=== PATIENT | female | born 1975 | race Caucasian/White ===

== ENCOUNTER → 2016-06-18 | Outpatient (CLI) | payer OTHER ==
[~2016-06-18] MED LIST: ADVIN25/60 INH; ALBUAER PO; ASPI81TA28 PO; OXYC1TAB3 PO; PENI-82 PO; PERFLUTREN LIPID MICROSPHERE (DEFINITY) IV ONE
--- NOTE | 2016-06-18 14:10 | DIAGNOSTIC IMAGING REPORT ---
ULTRASOUND OF THE CAROTID ARTERIES CLINICAL HISTORY: X VISUAL CHANGES. POSSIBLE TIA. COMPARISON STUDY: None. TECHNIQUE: Real-time, grayscale, and color Doppler sonography of the carotid arteries was performed. Imaging reviewed in the transverse and longitudinal planes. NASCET criteria was utilized for stenosis calcification. FINDINGS: There is minor atherosclerotic plaque present . The peak systolic velocity within the right internal carotid artery is 83 cm/sec. The systolic velocity ratio of right internal to common carotid artery is 0.7. The peak systolic velocity within the left internal carotid artery is 99 cm/sec. The systolic velocity ratio left internal to common carotid artery is 0.8. Antegrade flow is seen in the vertebral arteries. The external carotid arteries are patent. Blood pressure in the right arm measured 135 mm/Hg. Blood pressure in the left arm measured 137 mm/Hg. There is a mildly prominent right cervical lymph node maintaining its normal fatty hilum IMPRESSION: No evidence of hemodynamically significant carotid stenosis. Electronically signed by: Gordon Varela M.D. 06/18/2016 2:09 PM Dictated Date/Time: 06/18/2016 2:06 PM
--- NOTE | 2016-06-18 15:56 | ECHOCARDIOGRAM REPORT ---
*NOTICE TO RECEIVING CONSTITUTION PARTY AGENCY This information is strictly Confidential and protected under [place] law. [place] law prohibits you from making any further disclosure of this information unless further disclosure is expressly permitted by the written consent of the person to whom it pertains or is authorized by law. A general authorization for the release of medical or other information is not sufficient for this purpose. Hospital accepts no responsibility if the information is made available to any other person, INCLUDING THE PATIENT. Interpretation Summary * Name: APOLONIA FARFAN Study Date: 06/18/2016 01:08 PM BP: 140/78 mmHg * Patient Location: [facility] HR: 79 * : 1975 (M/d/yyyy) Gender: Female Height: 63 in * Age: 40 yrs Ethnicity: CA Weight: 225 lb * Ordering Physician: Maerk Garcia * Referring Physician: Marek Garcia * Performed By: Angela Tabares RDCS * * Reason For Study: BLURRED VISION * BSA: 2.0 m2 * History: BLURRED VISION * No significant valvular abnormalities. * This was essentially a normal study. * All chambers of normal size and function * Normal bi-ventricular function * No cardiac source of emboli noted. Procedure Details * A saline contrast injection was performed to assess for cardiac shunting. * The injection was performed through an intravenous line in the right arm. * The attending nurse who injected the saline contrast was GT FAULKNER RN. * A total of 20 cc of agitated saline was given. * A contrast injection of Definity was performed to improve assessment of LV function. * Contrast was injected into an intravenous site in the right arm. * One vial of Definity ultrasound contrast was diluted in normal saline to a total volume of 10 ml. A total of '2' ml of solution was administered during imaging. * Lot # [id number] of Definity utilized for procedure. * Expiration date JUN 02. * The attending nurse who injected the contrast agent was GT FAULKNER RN. Left Ventricle * The left ventricle is normal in size. * There is no thrombus. * There is normal left ventricular wall thickness. * Ejection Fraction = 55-60%. * Left ventricular systolic function is normal. * The left ventricular wall motion is normal. Right Ventricle * The right ventricle is normal in size and function. Atria * The left atrial size is normal. * Right atrial size is normal. * Injection of contrast documented no interatrial shunt. Mitral Valve * The mitral valve is normal. * There is no mitral valve stenosis. * There is no mitral regurgitation noted. Tricuspid Valve * The tricuspid valve is not well visualized, but is grossly normal. * There is no tricuspid stenosis. * No tricuspid regurgitation. Aortic Valve * The aortic valve is trileaflet. * The aortic valve opens well. * Aortic stenosis is absent. * No aortic regurgitation is present. Pulmonic Valve * The pulmonic valve is not well visualized. * There is no pulmonic valvular stenosis. * There is no pulmonic valvular regurgitation. Pericardium/Pleural * There is no pericardial effusion. MMode 2D Measurements and Calculations IVSd 1.1 cm IVSs 1.3 cm LVIDd 4.1 cm LVIDs 3.0 cm LVPWd 1.1 cm LVPWs 1.4 cm IVS/LVPW 0.98 FS 26.6 % EDV(Teich) 74.7 ml ESV(Teich) 35.5 ml EF(Teich) 52.4 % EDV(cubed) 69.5 ml ESV(cubed) 27.5 ml EF(cubed) 60.4 % % IVS thick 17.1 % % LVPW thick 22.0 % LV mass(C)d 153.9 grams LV mass(C)dI 75.7 grams/m\S\2 LV mass(C)s 129.6 grams LV mass(C)sI 63.7 grams/m\S\2 SV(Teich) 39.1 ml SI(Teich) 19.3 ml/m\S\2 SV(cubed) 42.0 ml SI(cubed) 20.6 ml/m\S\2 LA dimension 2.8 cm LVAd ap4 26.0 cm\S\2 LVLd ap4 7.9 cm EDV(MOD-sp4) 71.7 ml EDV(sp4-el) 72.4 ml LVAs ap4 16.4 cm\S\2 LVLs ap4 6.4 cm ESV(MOD-sp4) 37.5 ml ESV(sp4-el) 36.1 ml EF(MOD-sp4) 47.8 % EF(sp4-el) 50.2 % LVAd ap2 29.8 cm\S\2 LVLd ap2 8.6 cm EDV(MOD-sp2) 85.3 ml EDV(sp2-el) 87.7 ml LVAs ap2 17.6 cm\S\2 LVLs ap2 7.0 cm ESV(MOD-sp2) 36.4 ml ESV(sp2-el) 37.7 ml EF(MOD-sp2) 57.3 % EF(sp2-el) 57.0 % LVLd %diff 7.6 % EDV(MOD-bp) 81.7 ml LVLs %diff 9.1 % ESV(MOD-bp) 38.2 ml EF(MOD-bp) 53.2 % SV(MOD-sp4) 34.3 ml SI(MOD-sp4) 16.8 ml/m\S\2 SV(MOD-sp2) 48.9 ml SI(MOD-sp2) 24.1 ml/m\S\2 SV(MOD-bp) 43.5 ml SI(MOD-bp) 21.4 ml/m\S\2 SV(sp4-el) 36.3 ml SI(sp4-el) 17.9 ml/m\S\2 SV(sp2-el) 50.0 ml SI(sp2-el) 24.6 ml/m\S\2 Doppler Measurements and Calculations MV E max carolann 73.2 cm/sec MV A max carolann 48.5 cm/sec MV E/A 1.5 MV dec time 0.21 sec Ao V2 max 121.2 cm/sec Ao max PG 5.9 mmHg Ao max PG (full) 3.3 mmHg LV V1 max PG 2.6 mmHg LV V1 max 81.0 cm/sec
== END | disposition home or self-care (01) ==
LOC: C.ULTR 12:06
DX: H53.123 Transient visual loss, bilateral (principal)

== ENCOUNTER → 2016-06-23 | Outpatient (CLI) | payer OTHER ==
[~2016-06-23] MED LIST changes: -PERFLUTREN LIPID MICROSPHERE (DEFINITY) IV ONE
[2016-06-23 17:39] LABS: HEMATOCRIT 44.7 % (37-47); MEAN CELL VOLUME 88.9 fL (80-100); MEAN CORPUSCULAR HEMOGLOBIN 29.6 pg (25-34); MEAN CORPUSCULAR HGB CONC 33.3 g/dl (32-36); MEAN PLATELET VOLUME 10.6 fL (7.4-10.4); PLATELET COUNT 261 K/uL (130-400); RED BLOOD COUNT 5.03 M/uL (4.2-5.4); WHITE BLOOD COUNT 8.24 K/uL (4.8-10.8)
[2016-06-23 18:06] LABS: ALT/SGPT 31 U/L (12-78); AST/SGOT 14 U/L (15-37); BLOOD UREA NITROGEN 14 mg/dl (7-18); BUN/CREATININE RATIO 15.6 (10-20); CALCIUM 8.7 mg/dl (8.5-10.1); CARBON DIOXIDE 26 mmol/L (21-32); CHLORIDE 106 mmol/L (98-107); CHOLESTEROL 178 mg/dl (0-200); CREATININE 0.89 mg/dl (0.60-1.20); GLUCOSE 95 mg/dl (70-99); POTASSIUM 4.3 mmol/L (3.5-5.1); SODIUM 140 mmol/L (136-145)
[2016-06-23 18:09] LABS: ALKALINE PHOSPHATASE 74 U/L (45-117); CHOLESTEROL/HDL RATIO 6.1; HDL CHOLESTEROL 29 mg/dl; LDL CHOLESTEROL CALCULATED 79 mg/dl; TRIGLYCERIDES 351 mg/dl (0-150); VERY LOW DENSITY LIPOPROT CALC 70 mg/dl
== END | disposition home or self-care (01) ==
LOC: C.LABPVFM 11:51
DX: H53.123 Transient visual loss, bilateral (principal)

== ENCOUNTER 2016-06-24 13:48 | Emergency (ER) | payer OTHER ==
[~2016-06-24] VITALS: Ht 160 cm; Wt 102.6 kg
[2016-06-24 13:50] VITALS: TEMP 37; Ht 160 cm; Wt 102.6 kg
[2016-06-24] MEDS ORDERED: ADVIN25/60 INH (14:00)
[2016-06-24] MEDS ORDERED: ALBUAER PO (14:00)
[2016-06-24] MEDS ORDERED: PENI-82 PO (14:00)
[2016-06-24] MEDS ORDERED: ASPI81TA28 PO (14:03)
[2016-06-24] MEDS ORDERED: OXYCODONE HCL IR 5 MG TAB (IMMEDIATE RELEASE) PO STA (14:08)
[2016-06-24] MEDS ORDERED: KETOROLAC TROMETHAMINE 60 MG/2 ML VIAL IM STA (14:08)
--- NOTE | 2016-06-24 15:14 | EMERGENCY ROOM VISIT NOTE ---
ED Visit Note First contact with patient: 14:02 CHIEF COMPLAINT: Right upper toothache HISTORY OF PRESENT ILLNESS: This 40-year-old female presents the ER with chief complaint of right upper tooth pain that started last night. The patient states she was on antibiotics for an infection of the same tooth one month ago. She was given antibiotics by her dentist for which she hasn't appointment on Tuesday to have the tooth extracted. She also has been taking Tylenol with Codeine without any relief of the pain. She took one tablet today at noon. She has not taken anything else for pain. The patient states she has enough penicillin to get her through until she sees her dentist. REVIEW OF SYSTEMS: 6 system review was performed and was negative unless stated otherwise in history of present illness. PMH: The patient is healthy; asthma SOCIAL HISTORY: Patient lives with her family. The patient admits to tobacco use but denies any alcohol use. PHYSICAL EXAM: Vital Signs: Were reviewed Reviewed Nurse's notes. GENERAL: 40- year-old white female appears uncomfortable secondary to tooth pain. MENTAL Status: Alert and oriented 3. MOUTH: Right upper molar with tenderness to percussion. Some decay is noted. Gingiva without erythema or edema. FACE: No erythema or edema noted. NECK: Supple, no lymphadenopathy noted. LUNGS: Clear to auscultation without wheezes rales or rhonchi. CARDIAC: Regular rate and rhythm without murmur. EMERGENCY COURSE: The patient was evaluated. The patient was given Toradol 60 mg IM and OxyIR 10 mg by mouth. The patient was reevaluated was feeling better. The patient was discharged home in stable condition. DIAGNOSIS: Dentalgia DISCHARGE INSTRUCTIONS & TREATMENT: Continue penicillin as directed. Ibuprofen 600 mg every 6 hours with food for pain. Take OxyIR as directed for additional pain relief. Do not drive while taking the OxyIR. Keep scheduled appointment with her dentist on Tuesday for definitive care. Problem List Medical Problems: (1) Abscess of skin AND/OR subcutaneous tissue Status: Chronic (2) Asthma Status: Chronic (3) Migraine Status: Chronic Current/Historical Medications Scheduled Albuterol Sulfate (Proventil Hfa), 1 INHA PO DAILY Aspirin (Aspirin Ec), 81 MG PO DAILY Fluticasone Prop/Salmeterol (Advair Diskus 250/50 60 Dose), 1 PUFF INH BID Penicillin V Potassium (Veetids), 500 MG PO BID Allergies Coded Allergies: Cat Dander (Verified Allergy, Unknown, ., 07/31/15) [place] (Verified Allergy, Unknown, ., 07/31/15) Vital Signs Date Time Temp Pulse Resp B/P Pulse Ox O2 Delivery O2 Flow Rate FiO2 06/24/16 13:50 37.0 89 20 197/97 97 Room Air Medications Administered Medications (Trade) Dose Ordered Sig/Hanna Route Start Time Stop Time Status Last Admin Dose Admin Ketorolac Tromethamine (Toradol Inj) 60 mg NOW STAT IM 06/24/16 14:08 06/24/16 14:10 DC 06/24/16 14:15 60 MG Oxycodone HCl (Roxicodone Immediate Rel Tab) 10 mg NOW STAT PO 06/24/16 14:08 06/24/16 14:10 DC 06/24/16 14:14 10 MG Departure Information Referrals No Doctor, Assigned (PCP) Patient Instructions [facility]
[2016-06-24] MEDS ORDERED: OXYC1TAB3 PO (15:16)
[2016-06-24 15:22] VITALS: BP 135/91; PULSE 82; O2SAT 95
== END 2016-06-24 15:23 | disposition home or self-care (01) ==
LOC: C.EDB 13:49 → C.EDD 15:23
DX: K08.89 Other specified disorders of teeth and supporting structures (principal); J45.909 Unspecified asthma, uncomplicated; F17.200 Nicotine dependence, unspecified, uncomplicated; Z79.82 Long term (current) use of aspirin; Z79.899 Other long term (current) drug therapy; Z91.018 Allergy to other foods; Z91.09 Other allergy status, other than to drugs and biological substances

== ENCOUNTER → 2016-08-04 | Outpatient (CLI) | payer OTHER ==
[~2016-08-04] MED LIST changes: +OPTIRAY 320 IV PRN
--- NOTE | 2016-08-04 13:39 | DIAGNOSTIC IMAGING REPORT ---
CT SCAN OF THE BRAIN COMBO CLINICAL HISTORY: Amaurosis fugax. COMPARISON STUDY: CT of the brain dated 01/03/2010. TECHNIQUE: Axial CT scan of the brain is performed from the vertex to the skull base before and following the IV administration of 119 cc of Optiray 320. IV contrast was administered without complication. Automated dose control exposure was utilized. CT DOSE: 1074.96 mGy.cm FINDINGS: Brain parenchyma: The brain parenchyma is normal in appearance. There is no hemorrhage, mass effect, or evidence of acute territorial ischemia by CT criteria. No enhancing lesion is identified on the postcontrast images. Borges-white matter is preserved. No extra-axial fluid collection is seen. Ventricles, sulci, cisterns: Normal in configuration. Intracranial vasculature: The visualized intracranial vasculature at the skull base is normal in appearance. Calvarium: Unremarkable. Sinuses and mastoids: The visualized paranasal sinuses are clear. The mastoid air cells are well pneumatized. Orbits: The bony orbits are grossly intact. IMPRESSION: No acute intracranial abnormality. Electronically signed by: Gustavo Solorio M.D. 08/04/2016 1:38 PM Dictated Date/Time: 08/04/2016 1:34 PM
== END | disposition home or self-care (01) ==
LOC: C.CTS 12:52
DX: H53.129 Transient visual loss, unspecified eye (principal)

== ENCOUNTER → 2016-12-06 | Outpatient (CLI) | payer OTHER ==
[~2016-12-06] MED LIST changes: -OPTIRAY 320 IV PRN
--- NOTE | 2016-12-06 15:25 | DIAGNOSTIC IMAGING REPORT ---
LEFT SHOULDER MIN 2 VIEWS ROUTINE CLINICAL HISTORY: Left shoulder pain. COMPARISON: None FINDINGS: Alignment of the left shoulder is anatomic. There is no acute fracture. No suspicious osseous lesion is present. There is mild osteophytosis of the acromioclavicular joint. There is slight spurring of the greater tuberosity. IMPRESSION: 1. No acute fracture. 2. Mild osteoarthritis of the left acromioclavicular joint. Electronically signed by: Dylan Reyna M.D. 12/06/2016 3:24 PM Dictated Date/Time: 12/06/2016 3:23 PM
== END | disposition home or self-care (01) ==
LOC: C.RADPV 15:02
DX: M25.519 Pain in unspecified shoulder (principal)

== ENCOUNTER → 2017-12-13 | Outpatient (CLI) | payer OTHER ==
[~2017-12-13] MED LIST changes: -OXYC1TAB3 PO
--- NOTE | 2017-12-13 13:26 | DIAGNOSTIC IMAGING REPORT ---
THORACIC SPINE 3 VIEWS ROUTINE HISTORY: Pain LOW BACK PAIN COMPARISON: None. FINDINGS: There is no fracture. No subluxation. Moderate degenerative disc change. IMPRESSION: Moderate degenerative disc change. No acute process. The above report was generated using voice recognition software. It may contain grammatical, syntax or spelling errors. Electronically signed by: Shreyas Galeana M.D. 12/13/2017 1:25 PM Dictated Date/Time: 12/13/2017 1:24 PM
--- NOTE | 2017-12-13 13:53 | DIAGNOSTIC IMAGING REPORT ---
LUMBAR SPINE 5 VIEWS CLINICAL HISTORY: Low back pain. FINDINGS: 5 views of the lumbar spine are compared to study dated 09/02/2015. The skeletal structures are well mineralized. There is no radiographic evidence of fracture or malalignment. Vertebral body height and alignment are maintained. The transverse and spinous processes are intact. There is no evidence of spondylolysis. Small anterior osteophytes are seen throughout. Mild facet arthropathy is noted in the lower lumbar region. Mild disc space narrowing is seen at L1-L2 and L2 4 L5. The remaining intervertebral disc spaces are preserved. The visualized bony pelvis appears intact. There is a nonobstructed abdominal bowel gas pattern. IMPRESSION: No acute osseous abnormality is seen involving the lumbosacral spine. Electronically signed by: Gustavo Solorio M.D. 12/13/2017 1:52 PM Dictated Date/Time: 12/13/2017 1:51 PM
== END | disposition home or self-care (01) ==
LOC: C.RADPV 13:01
PROVIDERS: ATTEND Nurse Practitioner
DX: M51.36 Other intervertebral disc degeneration, lumbar region (principal)

== ENCOUNTER 2019-06-09 15:44 | Observation (INO) ==
--- OUTSIDE RECORDS SUMMARY | 2019-06-09 15:46 | External Medical Summary | Continuity of Care Document ---
:1975 Author Name Geena Zamora, Provider Address Unavailable Unavailable , Care Team Providers Name Role Phone Danyelle Mota Unavailable [email or web address] Ethan Zamora, Pito Villasenor Unavailable [email or web address] Mae Zamora Unavailable [email or web address] Blaine BUNCH Unavailable Unavailable [facility] Unavailable Unavailable Unavailable Unavailable Unavailable Problems Pharyngitis (462) (J02.9) Obesity (278.00) (E66.9) Back pain with radiation (724.5) (M54.9) Fatty liver (571.8) (K76.0) Hypertension (401.9) (I10) Hyperlipidemia (272.4) (E78.5) Contact dermatitis (692.9) (L25.9) Seborrheic dermatitis of scalp (690.18) (L21.9) Depression (311) (F32.9) Dental disorder (525.9) (K08.9) Asthmatic bronchitis (493.90) (J45.909) Furunculosis (680.9) (L02.92) Encounter for immunization (V03.89) (Z23) Back pain (724.5) (M54.9) Current smoker (305.1) (F17.200) Abscess (682.9) (L02.91) Asthma (493.90) (J45.909) Allergic rhinitis (477.9) (J30.9) Allergies and Adverse Reactions No Known Drug Allergies (Allergy) Medications Aldactone 25 MG Oral Tablet; TAKE 1 TABLET DAILY Refills: 0 Proventil HFA 108 (90 Base) MCG/ACT Inha lation Aerosol Solution; INHALE 1 TO 2 PUFFS EVERY 4 TO 6 HOURS NEEDED. GOVIND Fiore Quantity: 8.5 Refills: 2 Nebulizer/Tubing/Mouthpiece KIT; USE DIRECTED. Mouthpiece to match brand of nebulizer patient owns. Sera Wall Start: 21-Jan-2017 Quantity: 1 Refills: 0 Montelukast Sodium 10 MG Oral Tablet; TAKE 1 TABLET EV KAMRAN PARRA Sera Long Start: 08-Sep-2017 Quantity: 30 Refills: 11 Procedures History of Oral Surgery Status: Complete d Immunizations Influenza On: 13-Feb-2015 Fluzone Quadrivalent Intramuscular Suspension On: 6 16:14 Lot #: [id number], SANOFI PASTEUR Family History Mother Family history of malignant neoplasm (V16.9) (Z80.9) Status: Active Family history of lung disease (V19.8) (Z83.6) Status: Activ e Family history of malignant neoplasm of breast (V16.3) (Z80. 3) Status: Active aunt Family history of malignant neoplasm (V16.9) (Z80.9) Status: Active Family history of malignant neoplasm of breast (V16.3) (Z80. 3) Status: Active cousin Family history of malignant neoplasm (V16.9) (Z80.9) Status: Active Family history of malignant neoplasm of breast (V16.3) (Z80. 3) Status: Active Father Family history of diabetes mellitus (V18.0) (Z83.3) Status: Active Family history of hypertension (V17.49) (Z82.49) Status: Act allison Social History - Smoking Status Smoker. current status unknown Plan of Treatment Planned Observations Planned Goals not documented Results No Known Results Results not documented Encounters Appointment; Pulmonary, Funct Testing 08-Sep-2017 11:45 Encounter Diagnosis: Problem not documented Appointment; Pito Long M.D. 08-Sep-2017 11:00 Encounter Diagnosis: Problem not documented Appointment; Pito Long M.D. 09-Nov-2017 13:00 Encounter Diagnosis: Problem not documented
--- OUTSIDE RECORDS SUMMARY | 2019-06-09 15:46 | External Medical Summary | Continuity of Care Document ---
:1975 Author Name Geena Zamora, Provider Address Unavailable Unavailable , Care Team Providers Name Role Phone Danyelle Mota Unavailable [email or web address] Ethan Zamora, Pito Villasenor Unavailable [email or web address] Mae Zamora Unavailable [email or web address] Blaine BUNCH Unavailable Unavailable [facility] Unavailable Unavailable Unavailable Unavailable Unavailable Problems Depression (311) (F32.9) Seborrheic dermatitis of scalp (690.18) (L21.9) Contact dermatitis (692.9) (L25.9) Hyperlipidemia (272.4) (E78.5) Hypertension (401.9) (I10) Fatty liver (571.8) (K76.0) Back pain with radiation (724.5) (M54.9) Obesity (278.00) (E66.9) Pharyngitis (462) (J02.9) Abscess (682.9) (L02.91) Current smoker (305.1) (F17.200) Back pain (724.5) (M54.9) Encounter for immunization (V03.89) (Z23) Furunculosis (680.9) (L02.92) Asthmatic bronchitis (493.90) (J45.909) Allergic rhinitis (477.9) (J30.9) Asthma (493.90) (J45.909) Dental disorder (525.9) (K08.9) Allergies and Adverse Reactions No Known Drug Allergies (Allergy) Medications Proventil HFA 108 (90 Base) MCG/ACT Inha lation Aerosol Solution; INHALE 1 TO 2 PUFFS EVERY 4 TO 6 HOURS NEEDED. GOVIND Fiore Quantity: 8.5 Refills: 2 Nebulizer/Tubing/Mouthpiece KIT; USE DIRECTED. Mouthpiece to match brand of nebulizer patient owns. Sera Wall Start: 21-Jan-2017 Quantity: 1 Refills: 0 Aldactone 25 MG Oral Tablet; TAKE 1 TABLET DAILY Refills: 0 Montelukast Sodium 10 MG Oral Tablet; TAKE 1 TABLET EV KAMRAN Sera Mittal Start: 08-Sep-2017 Quantity: 30 Refills: 11 Procedures History of Oral Surgery Status: Complete d Immunizations Influenza On: 13-Feb-2015 Fluzone Quadrivalent Intramuscular Suspension On: 6 16:14 Lot #: [id number], SANOFI PASTEUR Family History Mother Family history [...]
[2019-06-09] MEDS ORDERED: VANCOMYCIN CONSULT ACTIVE PRN ×2 (16:09→21:02)
[2019-06-09] MEDS ORDERED: cefTRIAXone SODIUM 2,000 MG/70 ML BAG IV STA (16:09)
[2019-06-09] MEDS ORDERED: SODIUM CHLORIDE 0.9% 1000ML 1,000 ML IV ONE (16:09)
[2019-06-09] MEDS ORDERED: MoRPHine SULFATE 4 MG/ML 1 ML CARP\\VIAL IV STA (16:09)
[2019-06-09] MEDS ORDERED: VANCOMYCIN HCL 2,750 MG in SODIUM CHLORIDE 0.9% 500 ML IV ONE (16:09)
[2019-06-09] MEDS ORDERED: ONDANSETRON INJ 2 MG/ML 2 ML VIAL IV STA (16:09)
--- NOTE | 2019-06-09 16:26 | Emergency Department Note ---
History of Present Illness General Chief complaint: Breast Pain/Problems Stated complaint: ABCESS ON RIGHT BOOB,WEAK,FEVER Source: patient Mode of arrival: ambulatory Limitations: no limitations History of Present Illness Provider Complaint: + abscess/boil and + discoloration Onset (ago): 3 day(s) Tetanus up to date: yes Location: + chest (right breast) Severity: severe Maximum Pain Intensity: 7 Current Pain Intensity: 7 Quality: + aching and + sharp Pain Consistency: + constant Relieved By: + immobilization Exacerbated By: + palpation and + movement Context: + other (hx. breast abscesses) Associated symptoms: + fever, + chills, + rigors, + nausea, + malaise and + myalgias Treatments prior to arrival: + antibiotic (2 doses Levaquin) HPI narrative: This 43-year-old female patient presents the emergency department today, ambulatory, accompanied by male. The patient is complaining of right breast abscess and pain which began 3 days ago. The patient saw her PCP on Tuesday for these symptoms and was started on Levaquin. She states she took 2 doses of the Levaquin and continues to notice worsening symptoms. She was supposed to have a mammogram performed but has not scheduled this yet. The patient does have a history of breast abscesses, but states most of the time they improve on their own or with antibiotics. She did have a biopsy at one time, but indicates she has not had I&D's or formal surgery. The patient has had multiple abscesses in this right breast as well as 2-3 in the left. She denies any trauma. She denies any discharge. She does report subjective fevers, weakness, nausea, body aches, chills, and lethargy. She has been taking 800 mg ibuprofen without relief of her symptoms. Patient is not diabetic. Tetanus vaccination is up-to-date. Home Medications Home Medications Medication Instructions Recorded Confirmed Type albuterol sulfate 2.5 mg INHALATION DAILY PRN 06/09/19 06/09/19 History albuterol sulfate [Ventolin HFA] 1 - 2 puff INHALATION DAILY PRN 06/09/19 06/09/19 History cetirizine [Zyrtec] 10 mg PO QAM 06/09/19 06/09/19 History ibuprofen 800 mg PO TID PRN 06/09/19 06/09/19 History levofloxacin [Levaquin] 750 mg PO DAILY 06/09/19 06/09/19 History montelukast [Singulair] 10 mg PO QPM 06/09/19 06/09/19 History tolnaftate [Antifungal 1 applic TOPICAL DAILY 06/09/19 06/09/19 History (tolnaftate)] Allergies Allergy/AdvReac Type Severity Reaction Status Date / Time cat dander Allergy Unknown . Verified 06/09/19 17:30 orange Allergy Unknown . 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 Required: No Beliefs That Will Affect Care: None Current Living Situation: Spouse and Family Other Information That Helps Us Care for You: No Feels Safe at Home: Yes Safety Concerns: Feels Safe At This Time Smoking Status: Heavy tobacco smoker Tobacco Type: cigarettes ; Do You Dip or Chew Tobacco: No ; Hx Substance Use: No Review of Systems A total of 10 systems reviewed and were otherwise negative Physical Exam Vital Signs: Vital Signs - 24 hr 06/09/19 15:46 06/09/19 18:19 06/09/19 20:17 Temperature 37.0 C Temperature Source Oral Pulse Rate 103 H Pulse Rate [Apical ] 85 80 Respiratory Rate 18 18 18 Respiratory Effort / Characteristics Non-Labored Non-Labored Respiratory Depth Normal Normal Respiratory Patter n Regular Regular Blood Pressure 154/81 H Blood Pressure [Ri ght Arm] 100/59 L 96/53 L Blood Pressure Mary n 105 Blood Pressure Mary n [Right Arm] 72 67 Blood Pressure Pos ition Sitting Pulse Oximetry 98 96 96 Oxygen Delivery Me thod Room Air Room Air Room Air Sepsis Recent Feve r Within 48 Hours No Sepsis New/Unexpla ined Change in Men norman Status No Sepsis Action Take n by Nursing No Action Required Physical Exam: VITALS: Vitals are noted on the nurse's note and reviewed by myself. Vital signs stable. GENERAL: This is a 43-year-old obese white female, in no acute distress, nondiaphoretic, well-developed well-nourished. SKIN: Erythema, warmth, and induration extending from the medial aspect of the right breast behind the areola and nipple and toward the lateral aspect of the breast. This induration measures approximately 8 cm in diameter. The skin was without rashes, erythema, edema, or bruising. There is no tenting of the skin. Capillary refill less than 2 seconds. HEAD: Normocephalic atraumatic. NECK: Supple without nuchal rigidity. No lymphadenopathy. HEART: Regular rate and rhythm without murmurs gallops or rubs. LUNGS: Clear to auscultation bilaterally without wheezes, rales or rhonchi. No dullness to percussion. No retractions or accessory muscle use. ABDOMEN: Positive bowel sounds x 4. Normal tympanic percussion. Soft, nontender, without masses or organomegaly. Gomez sign negative. No guarding or rebound tenderness. MUSCULOSKELETAL: No muscle atrophy, erythema, or edema noted. Full range of motion without joint tenderness in all extremities. No tenderness to palpation. NEURO: Patient was alert and oriented to person place and time. No focal neurological deficits. Course Course The patient was seen and evaluated as above. IV access obtained, labs drawn. I discussed the case with the ED pharmacist. We did agree on antibiotic management. Patient medicated with IV fluids, morphine, Zofran, vancomycin, ceftriaxone. Imaging performed and reviewed by myself and radiologist as above. Labs reviewed by myself. I discussed the findings with the patient at bedside. I discussed the case with my attending. I discussed the case with Dr. Goddard, general surgeon on-call. He recommends aspiration by a breast radiologist as the standard of care at this time. He indicates that it will likely be difficult or impossible to make this happen over the weekend, but does not recommend I&D at this time. He discussed admission to medicine for antibiotic management versus discharge home on a trial of p.o. antibiotics with aspiration completed on Tuesday. Attempts made to contact Dr. Wade or Dr. Crowder, breast radiologists, however there is no call on weekends for these providers. We did attempt to contact the breast center in order to obtain a on-call number, but were unsuccessful. I discussed the case with Dr. England, [facility]. He did agree to see and evaluate the patient for admission. Please see his dictation regarding ongoing management care of this patient. Administered Medications Discontinued Medications Sodium Chloride (Nss 1000ml) 1,000 mls @ 999 mls/hr IV .[id number] ONE Stop: 06/09/19 17:09 Last Infusion: 06/09/19 18:46 Dose: 0 mls/hr Documented by: [id number] Admin: 06/09/19 16:39 Dose: 999 mls/hr Documented by: [id number] Vancomycin HCl 2,750 mg/ (Sodium Chloride) 555 mls @ 200 mls/hr IV NOW ONE Stop: 06/09/19 18:55 Last Infusion: 06/09/19 21:03 Dose: 0 mls/hr Documented by: [id number] Admin: 06/09/19 18:02 Dose: 200 mls/hr Documented by: [id number] Ceftriaxone Sodium (Rocephin) 2,000 mg in 70 mls @ 140 mls/hr IV NOW STA Stop: 06/09/19 16:38 Last Infusion: 06/09/19 18:47 Dose: 0 mls/hr Documented by: [id number] Admin: 06/09/19 17:17 Dose: 140 mls/hr Documented by: [id number] Morphine Sulfate (Morphine Sulfate) 4 mg IV NOW STA Stop: 06/09/19 16:10 Last Admin: 06/09/19 16:39 Dose: 4 mg Documented by: [id number] Nicotine (Nicoderm Cq) 21 mg TD NOW STA Stop: 06/09/19 19:26 Last Admin: 06/09/19 20:15 Dose: 21 mg Documented by: [id number] Ondansetron HCl (Zofran) 4 mg IV NOW STA Stop: 06/09/19 16:10 Last Admin: 06/09/19 16:39 Dose: 4 mg Documented by: [id number] Medical Decision Making Differential Diagnosis + abscess of skin or subcutaneous tissue, + viral exanthem, + dermatophytosis, + urticaria, + herpes zoster, + allergic reaction to drug, + cellulitis, + eczema, + insect bites, + impetigo, + contact dermatitis, + cellulitis, + necrotizing fasciitis, + foreign body, + dermatitis and + drug eruption Home Medications Current Medication List: was personally reviewed by me Laboratory Data Attestation: I reviewed the patient's lab results. Leukocytosis of 12.9. No anemia or thrombocytopenia. Coags normal. Renal, hepatic function and electrolytes without significant abnormality. Lactate 0.7. Result diagrams: 06/09/19 16:31 06/09/19 16:31 Lab Results 06/09/19 06/09/19 06/09/19 Range/Units 16:31 16:31 16:31 WBC 12.90 H (4.8-10.8) K/uL RBC 4.66 (4.2-5.4) M/uL Hgb 14.1 (12.0-16.0) g/dL Hct 41.5 (37-47) % MCV 89.1 (80-100) fL MCH 30.3 (25-34) pg MCHC 34.0 (32-36) g/dL RDW Std Deviation 43.7 (36.4-46.3) fL RDW Coeff of Gina 13.4 (11.5-14.5) % Plt Count 249 (130-400) K/uL MPV 9.9 (7.4-10.4) fL Immature Gran % (Auto) 0.2 % Neut % (Auto) 75.0 % Lymph % (Auto) 13.4 % [place] % (Auto) 8.8 % Eos % (Auto) 2.3 % Baso % (Auto) 0.3 % Immature Gran # (Auto) 0.02 (0.00-0.02) K/uL Neut # (Auto) 9.68 H (1.4-6.5) K/uL Lymph # (Auto) 1.73 (1.2-3.4) K/uL Mingo # (Auto) 1.13 H (0.11-0.59) K/uL Eos # (Auto) 0.30 (0-0.5) K/uL Baso # (Auto) 0.04 (0-0.2) K/uL PT 11.2 (9.0-12.0) Seconds INR 1.1 (0.9-1.1) APTT 28.2 (21.0-31.0) Seconds PTT Ratio 1.0 Sodium 137 (136-145) mmol/L Potassium 4.0 (3.5-5.1) mmol/L Chloride 106 (98-107) mmol/L Carbon Dioxide 27 (21-32) mmol/L Anion Gap 4.0 (3-11) BUN 6 L (7-18) mg/dl Creatinine 0.97 (0.6-1.2) mg/dl Est Cr Clr Drug Dosing 86.9 ml/min Est GFR ( Amer) 82.3 Est GFR (Non-Af Amer) 71.0 BUN/Creatinine Ratio 6.5 L (10-20) Glucose 89 (70-99) mg/dl Lactate (0.4-2.0) mmol/L Calcium 8.6 (8.5-10.1) mg/dl Total Bilirubin 0.4 (0.2-1) mg/dl AST 8 L (15-37) U/L ALT 20 (12-78) U/L Alkaline Phosphatase 80 (45-117) U/L Total Protein 7.1 (6.4-8.2) gm/dl Albumin 3.1 L (3.4-5.0) gm/dl Globulin 4.0 (2.5-4.0) gm/dl Albumin/Globulin Ratio 0.8 L (0.9-2) 01/25/20 Range/Units 16:31 WBC (4.8-10.8) K/uL RBC (4.2-5.4) M/uL Hgb (12.0-16.0) g/dL Hct (37-47) % MCV (80-100) fL MCH (25-34) pg MCHC (32-36) g/dL RDW Std Deviation (36.4-46.3) fL RDW Coeff of Gina (11.5-14.5) % Plt Count (130-400) K/uL MPV (7.4-10.4) fL Immature Gran % (Auto) % Neut % (Auto) % Lymph % (Auto) % Mingo % (Auto) % Eos % (Auto) % Baso % (Auto) % Immature Gran # (Auto) (0.00-0.02) K/uL Neut # (Auto) (1.4-6.5) K/uL Lymph # (Auto) (1.2-3.4) K/uL Mingo # (Auto) (0.11-0.59) K/uL Eos # (Auto) (0-0.5) K/uL Baso # (Auto) (0-0.2) K/uL PT (9.0-12.0) Seconds INR (0.9-1.1) APTT (21.0-31.0) Seconds PTT Ratio Sodium (136-145) mmol/L Potassium (3.5-5.1) mmol/L Chloride (98-107) mmol/L Carbon Dioxide (21-32) mmol/L Anion Gap (3-11) BUN (7-18) mg/dl Creatinine (0.6-1.2) mg/dl Est Cr Clr Drug Dosing ml/min Est GFR ( Amer) Est GFR (Non-Af Amer) BUN/Creatinine Ratio (10-20) Glucose (70-99) mg/dl Lactate 0.7 (0.4-2.0) mmol/L Calcium (8.5-10.1) mg/dl Total Bilirubin (0.2-1) mg/dl AST (15-37) U/L ALT (12-78) U/L Alkaline Phosphatase (45-117) U/L Total Protein (6.4-8.2) gm/dl Albumin (3.4-5.0) gm/dl Globulin (2.5-4.0) gm/dl Albumin/Globulin Ratio (0.9-2) Imaging Data Radiologist's Impression: ULTRASOUND RIGHT BREAST LIMITED CLINICAL HISTORY: Right breast erythema and induration. Pain. Clinical concern for abscess. COMPARISON STUDY: Ultrasound of the right breast dated 04/11/2019. FINDINGS: Real-time, grayscale, and color flow sonography of the right breast is performed. There is a complex collection identified at the site of interest in the 3:00 position which measures 5.4 x 4.7 x 3.6 cm. No internal flow is identified. There is peripheral hyperemia on color imaging. IMPRESSION: 1. There is a complex fluid collection in the right breast as above typical in appearance for abscess. 2. Note that this does not constitute a cancer screening examination. Electronically signed by: Gustavo Solorio M.D. 06/09/2019 6:13 PM Blood Pressure Blood Pressure Findings: Normal blood pressure Blood Pressure Disposition: elevated BP felt to be situational MDM Narrative This 43-year-old female patient presents emergency department today for evaluation of right breast abscess. The patient indicates she does have a history of breast abscesses and has had them biopsied and drained, but has responded well to antibiotics in the past. She reports subjective fevers, chills, body aches, and systemic symptoms in addition to acute worsening of the redness and pain. Work-up here in the ED does show a leukocytosis of 13,000. There is an obvious abscess in the right breast on ultrasound. I discussed the case with the general surgeon/breast surgeon on-call, Dr. Goddard, who r ecommends ultrasound-guided aspiration is the standard of care for this abscess. The patient was recently on oral antibiotics and worsened despite these antibiotics. She is now complaining of systemic symptoms, and I do feel that inpatient management is most appropriate for IV antibiotics and consult with the breast radiologist for aspiration. The patient was agreeable. She was medicated in the ED with ceftriaxone and vancomycin after consultation with the ED pharmacist. The patient will be admitted to the [facility] service. The chart was completed utilizing [employer] Speech voice recognition software. Grammatical errors, random word insertions, pronoun errors, and incomplete sentences are an occasional consequence of this system due to software limitations, ambient noise, and hardware issues. Any formal questions or concerns about the content, text, or information contained within the body of this dictation should be directly addressed to the provider for clarification. Impression & Plan Abscess of skin AND/OR subcutaneous tissue, Breast abscess of female Discharge Plan Visit Data *Final* Discharge Date/Time: 06/09/19 20:49 Chief Complaint: Breast Pain/Problems Stated Complaint: ABCESS ON RIGHT BOOB,WEAK,FEVER ED Provider: [facility] Midlevel Provider: Ruthie Nava Discharge Problem: Abscess of skin AND/OR subcutaneous tissue, Breast abscess of female Patient Disposition: Admitted As Inpatient Discharge Instructions Interventions: ED Discharge Assessment Last Done: 06/09/19 20:49
[2019-06-09 16:39] LABS: Basophils # (auto) 0.04 K/uL (0-0.2); Basophils % (auto) 0.3 %; Eosinophils % (auto) 2.3 %; Hematocrit (blood only) 41.5 % (37-47); Hemoglobin 14.1 g/dL (12.0-16.0); Immature Granulocytes # (auto) 0.02 K/uL (0.00-0.02); Immature Granulocytes % (auto) 0.2 %; Lymphocytes # (auto) 1.73 K/uL (1.2-3.4); Lymphocytes % (auto) 13.4 %; Mean Corpuscular Hemoglobin 30.3 pg (25-34); Mean Corpuscular Volume 89.1 fL (80-100); Mean Platelet Volume 9.9 fL (7.4-10.4); Monocytes # (auto) 1.13 K/uL (0.11-0.59); Monocytes % (auto) 8.8 %; Neutrophils # (auto) 9.68 K/uL (1.4-6.5); Platelet Count 249 K/uL (130-400); RDW Coefficient of Variation 13.4 % (11.5-14.5); RDW Standard Deviation 43.7 fL (36.4-46.3); Red Blood Count 4.66 M/uL (4.2-5.4)
[2019-06-09 16:50] LABS: INR 1.1 (0.9-1.1); Partial Thromboplastin Time 28.2 Seconds (21.0-31.0); Prothrombin Time 11.2 Seconds (9.0-12.0)
[2019-06-09 16:56] LABS: Albumin Level 3.1 gm/dl (3.4-5.0); BUN Creatinine Ratio 6.5 (10-20); Calcium 8.6 mg/dl (8.5-10.1); Creatinine Clr Calc Pharmacy 86.9 ml/min; Est GFR (African American) 82.3
[2019-06-09 16:58] LABS: Albumin Globulin Ratio 0.8 (0.9-2); Bilirubin,Total 0.4 mg/dl (0.2-1); Total Protein 7.1 gm/dl (6.4-8.2)
--- NOTE | 2019-06-09 18:14 | Ultrasound Report ---
ULTRASOUND RIGHT BREAST LIMITED CLINICAL HISTORY: Right breast erythema and induration. Pain. Clinical concern for abscess. COMPARISON STUDY: Ultrasound of the right breast dated 04/11/2019. FINDINGS: Real-time, grayscale, and color flow sonography of the right breast is performed. There is a complex collection identified at the site of interest in the 3:00 position which measures 5.4 x 4.7 x 3.6 cm. No internal flow is identified. There is peripheral hyperemia on color imaging. IMPRESSION: 1. There is a complex fluid collection in the right breast as above typical in appearance for abscess . 2. Note that this does not constitute a cancer screening examination. Electronically signed by: Gustavo Solorio M.D. 06/09/2019 6:13 PM
--- NOTE | 2019-06-09 19:24 | Surgery Consultation ---
Date of Consultation June 09, 2019 Assessment & Plan (1) Breast abscess of female: Called for patient with breast abscess, ~5 cm on US. Non lactating, symptoms started Tuesday. Slight leukocytosis, otherwise stable vitals. Erythema and induration to breast, history of prior abscesses responsive to abx in past. Recommend US guided aspiration by radiology which is the first line of therapy in breast abscess without necrosis. If unable to be performed until breast center open, then recommend abx and follow up with breast center on Tuesday. Patient can be trialed on oral abx or admitted to medicine service for IV abx if deemed necessary by Emergency room staff until drainage can be performed Please call with questions or concerns This patient was not examined at the time of this note. History of Present Illness Allergies Allergy/AdvReac Type Severity Reaction Status Date / Time cat dander Allergy Unknown . Verified 06/09/19 17:30 orange Allergy Unknown . Verified 06/09/19 17:30 Home Medications Home Medications Medication Instructions Recorded Confirmed Type albuterol sulfate 2.5 mg INHALATION DAILY PRN 06/09/19 06/09/19 History albuterol sulfate [Ventolin HFA] 1 - 2 puff INHALATION DAILY PRN 06/09/19 06/09/19 History cetirizine [Zyrtec] 10 mg PO QAM 06/09/19 06/09/19 History ibuprofen 800 mg PO TID PRN 06/09/19 06/09/19 History levofloxacin [Levaquin] 750 mg PO DAILY 06/09/19 06/09/19 History montelukast [Singulair] 10 mg PO QPM 06/09/19 06/09/19 History tolnaftate [Antifungal 1 applic TOPICAL DAILY 06/09/19 06/09/19 History (tolnaftate)] Patient History Medical History Asthma Social History Preferred Language: Serbian Feels Safe at Home: Yes Smoking Status: Never smoker Results & Data Vital Signs (Past 12 Hours) Vital Signs Temp Pulse Pulse Resp BP BP Pulse Ox 06/09/19 18:19 85 18 100/59 L 96 06/09/19 15:46 37.0 C 103 H 18 154/81 H 98 Laboratory Results Laboratory Results - last 24 hr 06/09/19 06/09/19 06/09/19 16:31 16:31 16:31 WBC 12.90 H RBC 4.66 Hgb 14.1 Hct 41.5 MCV 89.1 MCH 30.3 MCHC 34.0 RDW Std Deviation 43.7 RDW Coeff of Gina 13.4 Plt Count 249 MPV 9.9 Immature Gran % (Auto) 0.2 Neut % (Auto) 75.0 Lymph % (Auto) 13.4 Canadian % (Auto) 8.8 Eos % (Auto) 2.3 Baso % (Auto) 0.3 Immature Gran # (Auto) 0.02 Neut # (Auto) 9.68 H Lymph # (Auto) 1.73 Canadian # (Auto) 1.13 H Eos # (Auto) 0.30 Baso # (Auto) 0.04 PT 11.2 INR 1.1 APTT 28.2 PTT Ratio 1.0 Sodium 137 Potassium 4.0 Chloride 106 Carbon Dioxide 27 Anion Gap 4.0 BUN 6 L Creatinine 0.97 Est Cr Clr Drug Dosing 86.9 Est GFR ( Amer) 82.3 Est GFR (Non-Af Amer) 71.0 BUN/Creatinine Ratio 6.5 L Glucose 89 Lactate Calcium 8.6 Total Bilirubin 0.4 AST 8 L ALT 20 Alkaline Phosphatase 80 Total Protein 7.1 Albumin 3.1 L Globulin 4.0 Albumin/Globulin Ratio 0.8 L 06/09/19 16:31 WBC RBC Hgb Hct MCV MCH MCHC RDW Std Deviation RDW Coeff of Gina Plt Count MPV Immature Gran % (Auto) Neut % (Auto) Lymph % (Auto) [place] % (Auto) Eos % (Auto) Baso % (Auto) Immature Gran # (Auto) Neut # (Auto) Lymph # (Auto) [place] # (Auto) Eos # (Auto) Baso # (Auto) PT INR APTT PTT Ratio Sodium Potassium Chloride Carbon Dioxide Anion Gap BUN Creatinine Est Cr Clr Drug Dosing Est GFR ( Amer) Est GFR (Non-Af Amer) BUN/Creatinine Ratio Glucose Lactate 0.7 Calcium Total Bilirubin AST ALT Alkaline Phosphatase Total Protein Albumin Globulin Albumin/Globulin Ratio Diagnostic Findings ULTRASOUND RIGHT BREAST LIMITED CLINICAL HISTORY: Right breast erythema and induration. Pain. Clinical concern for abscess. COMPARISON STUDY: Ultrasound of the right breast dated 04/11/2019. FINDINGS: Real-time, grayscale, and color flow sonography of the right breast is performed. There is a complex collection identified at the site of interest in the 3:00 position which measures 5.4 x 4.7 x 3.6 cm. No internal flow is identified. There is peripheral hyperemia on color imaging. IMPRESSION: 1. There is a complex fluid collection in the right breast as above typical in appearance for abscess. 2. Note that this does not constitute a cancer screening examination. PG Care Time/CCT Total # of Minutes Spent Total Time Spent with Patient: Total time spent is greater than 50% in coordination of care (as documented) at patient's floor/unit and/or counseling patient: Coding Level of Care Code None Diagnoses Breast abscess of female N61.1
[2019-06-09] MEDS ORDERED: NICOTINE 21 MG/24 HR TDSY TD STA (19:25)
[2019-06-09] MEDS ORDERED: POLYETHYLENE (MIRALAX) 17 GM PACK PO PRN (21:02)
[2019-06-09] MEDS ORDERED: ONDANSETRON INJ 2 MG/ML 2 ML VIAL IV PRN (21:02)
[2019-06-09] MEDS ORDERED: ALUMINUM/MAGNESIUM SUSP 30 ML UDC PO PRN (21:02)
[2019-06-09] MEDS ORDERED: MAGNESIUM HYDROXIDE SUSP 30 ML UDC PO PRN (21:02)
[2019-06-09] MEDS ORDERED: ALBUTEROL HFA 8 GM INHALER INH PRN (21:02)
[2019-06-09] MEDS ORDERED: ALBUTEROL 0.083% NEBU SOLN 3 ML VIAL INH PRN (21:02)
[2019-06-09] MEDS ORDERED: INFLUENZA ADMINISTRATION CHARGE ONE (21:46)
[2019-06-09] MEDS ORDERED: INFLUENZA VIRUS QUAD VACCINE 0.5 ML SYR IM ONE (21:46)
[2019-06-09] MEDS: MONTELUKAST SODIUM 10 MG TABLET PO SCH (21:55)
[2019-06-09 23:59] LABS: Appearance Urine Clear (Clear); Bilirubin Urine Negative (Negative); Blood Urine Negative (Negative); Color Urine Yellow; Glucose Urine UA Negative (Negative); Ketones Urine Negative (Negative); Leukocyte Esterase Urine Negative (Negative); Nitrite Urine Negative (Negative); Protein Urine Negative (Negative); Specific Gravity Urine 1.026 (1.000-1.030); Urobilinogen Urine Negative (Negative); pH Urine 5.5 (4.5-7.5)
--- NOTE | 2019-06-10 00:21 | History & Physical Report ---
Date of Service June 10, 2019 The patient was seen and examined on June 09, 2019 Assessment & Plan (1) Breast abscess of female: Right breast abscess and cellulitis- Continue vancomycin IV and ceftriaxone IV begun in the ED. Close clinical exam examination. If the patient does not improve appropriately on IV antibiotics and the abscess/cellulitis is persistent on follow-up breast ultrasound, it will require surgical drainage. Present on Admission?: Yes (2) Abscess of skin AND/OR subcutaneous tissue: See above Present on Admission?: Yes (3) Asthma: Albuterol sulfate HFA 2 puffs 4 times daily as needed. . Montelukast 10 mg p.o. every evening Present on Admission?: Yes History of Present Illness Chief Complaint: The patient presents to the emergency department due to painful, red and warm area on her right breast that began 3 days ago, and worsened considerably today. Primary Care Provider: Anabel Diehl The patient is a 43-year-old female with a past medical history including asthma, allergy and obesity, who presents to the emergency department with worsening pain, redness and warmth of right breast over the past 3 days, particularly worsening the day of admission. She reports having 2 previous episodes of abscesses, with the first undergoing a biopsy which was negative at that time. The second resolved with oral Levaquin. The third episode, which is today, has been treated with 2 days of Levaquin, and since it worsens considerably today, she presented to ED for assessment Allergies Allergy/AdvReac Type Severity Reaction Status Date / Time cat dander Allergy Unknown . Verified 06/09/19 17:30 orange Allergy Unknown . Verified 06/09/19 17:30 Home Medications Home Medications Medication Instructions Recorded Confirmed Type albuterol sulfate 2.5 mg INHALATION DAILY PRN 06/09/19 06/09/19 History albuterol sulfate [Ventolin HFA] 1 - 2 puff INHALATION DAILY PRN 06/09/19 06/09/19 History cetirizine [Zyrtec] 10 mg PO QAM 06/09/19 06/09/19 History ibuprofen 800 mg PO TID PRN 06/09/19 06/09/19 History levofloxacin [Levaquin] 750 mg PO DAILY 06/09/19 06/09/19 History montelukast [Singulair] 10 mg PO QPM 06/09/19 06/09/19 History tolnaftate [Antifungal 1 applic TOPICAL DAILY 06/09/19 06/09/19 History (tolnaftate)] Past Med/Surg History Medical History Asthma Breast abscess of female Social History Preferred Language: French Communication Ability: Effective Engine Watchman Required: No Beliefs That Will Affect Care: None Current Living Situation: Spouse and Family Other Information That Helps Us Care for You: No Feels Safe at Home: Yes Safety Concerns: Feels Safe At This Time Smoking Status: Heavy tobacco smoker Tobacco Type: cigarettes ; Do You Dip or Chew Tobacco: No ; Hx Substance Use: No Review of Systems Review of Systems: The patient denies chest pain, palpitations, shortness of breath, dyspnea on exertion, cough, lower extremity swelling, sore throat, sweats, weight change, fatigue, nausea, vomiting, diarrhea , constipation, abdominal pain, pelvic pain, blood in urine or stool, dysuria, urinary frequency or urgency, lightheadedness, dizziness, headache, memory loss, loss of consciousness, abnormal bruising or bleeding, imbalance, focal or generalized weakness, numbness or tingling in arms or legs, generalized arthralgias or myalgias, back or neck pain, or night sweats. The review of systems is otherwise negative other than for that already noted above, and at least 10 systems have been reviewed. Physical Exam Physical Exam: The patient is awake, alert and oriented 3, well developed and well nourished, normocephalic and atraumatic, lying in bed and in no acute distress. HEENT--PERRL, EOMI, mucous membranes and oropharynx normal. Neck--supple. No JVD. No bruits. Thyroid normal, trachea midline, no adenopathy. Heart--normal S1 and S2. No murmurs, rubs or gallops. Lungs--clear bilaterally, no respiratory distress, no accessory muscle use. Abdomen--normal bowel sounds and soft. Nontender. Nondistended, no hernias or masses, no organomegaly. Extremities--no cyanosis or clubbing. No edema. There are good distal pulses b/l. Dermatologic--right breast with erythema centered over the areola and medially,with tenderness throughout Neurologic--cranial nerves II through XII grossly intact. Rheumatologic--normal range of motion. Psychiatric--normal affect. Results & Data Vital Signs (Past 12 Hours) Vital Signs Temp Pulse Pulse Resp BP BP Pulse Ox 06/09/19 21:33 97.5 F L 95 H 16 118/76 97 06/09/19 20:17 80 18 96/53 L 96 06/09/19 18:19 85 18 100/59 L 96 06/09/19 15:46 98.6 F 103 H 18 154/81 H 98 Laboratory Results Laboratory Results WBC 12.90 K/uL (4.8-10.8) H 06/09/19 16:31 RBC 4.66 M/uL (4.2-5.4) 06/09/19 16:31 Hgb 14.1 g/dL (12.0-16.0) 06/09/19 16:31 Hct 41.5 % (37-47) 06/09/19 16: MCV 89.1 fL (80-100) 06/09/19 16: MCH 30.3 pg (25-34) 06/09/19 16: MCHC 34.0 g/dL (32-36) 06/09/19 16:31 RDW Std Deviation 43.7 fL (36.4-46.3) 06/09/19 16: RDW Coeff of Gina 13.4 % (11.5-14.5) 06/09/19 16: Plt Count 249 K/uL (130-400) 06/09/19 16: MPV 9.9 fL (7.4-10.4) 06/09/19 16:31 Immature Gran % (Auto) 0.2 % 06/09/19 16: Neut % (Auto) 75.0 % 06/09/19 16: Lymph % (Auto) 13.4 % 06/09/19 16: [place] % (Auto) 8.8 % 06/09/19 16:31 Eos % (Auto) 2.3 % 06/09/19 16: Baso % (Auto) 0.3 % 06/09/19 16: Immature Gran # (Auto) 0.02 K/uL (0.00-0.02) 06/09/19 16:31 Neut # (Auto) 9.68 K/uL (1.4-6.5) H 06/09/19 16:31 Lymph # (Auto) 1.73 K/uL (1.2-3.4) 06/09/19 16:31 [place] # (Auto) 1.13 K/uL (0.11-0.59) H 06/09/19 16:31 Eos # (Auto) 0.30 K/uL (0-0.5) 06/09/19 16:31 Baso # (Auto) 0.04 K/uL (0-0.2) 06/09/19 16:31 PT 11.2 Seconds (9.0-12.0) 06/09/19 16:31 INR 1.1 (0.9-1.1) 06/09/19 16:31 APTT 28.2 Seconds (21.0-31.0) 06/09/19 16:31 PTT Ratio 1.0 06/09/19 16:31 Sodium 137 mmol/L (136-145) 06/09/19 16:31 Potassium 4.0 mmol/L (3.5-5.1) 06/09/19 16:31 Chloride 106 mmol/L (98-107) 06/09/19 16:31 Carbon Dioxide 27 mmol/L (21-32) 06/09/19 16:31 Anion Gap 4.0 (3-11) 06/09/19 16:31 BUN 6 mg/dl (7-18) L 06/09/19 16:31 Creatinine 0.97 mg/dl (0.6-1.2) 06/09/19 16:31 Est Cr Clr Drug Dosing 86.9 ml/min 06/09/19 16:31 Est GFR ( Amer) 82.3 06/09/19 16:31 Est GFR (Non-Af Amer) 71.0 06/09/19 16:31 BUN/Creatinine Ratio 6.5 (10-20) L 06/09/19 16:31 Glucose 89 mg/dl (70-99) 06/09/19 16:31 Lactate 0.7 mmol/L (0.4-2.0) 06/09/19 16:31 Calcium 8.6 mg/dl (8.5-10.1) 06/09/19 16:31 Total Bilirubin 0.4 mg/dl (0.2-1) 06/09/19 16:31 AST 8 U/L (15-37) L 06/09/19 16:31 ALT 20 U/L (12-78) 06/09/19 16:31 Alkaline Phosphatase 80 U/L (45-117) 06/09/19 16:31 Total Protein 7.1 gm/dl (6.4-8.2) 06/09/19 16: Albumin 3.1 gm/dl (3.4-5.0) L 06/09/19 16:31 Globulin 4.0 gm/dl (2.5-4.0) 06/09/19 16:31 Albumin/Globulin Ratio 0.8 (0.9-2) L 06/09/19 16:31 Urine Color Yellow 06/09/19 23:45 Urine Appearance Clear (Clear) 06/09/19 23:45 Urine pH 5.5 (4.5-7.5) 06/09/19 23:45 Ur Specific [place] 1.026 (1.000-1.030) 06/09/19 23:45 Urine Protein Negative (Negative) 06/09/19 23:45 Urine Glucose (UA) Negative (Negative) 06/09/19 23:45 Urine Ketones Negative (Negative) 06/09/19 23:45 Urine Blood Negative (Negative) 06/09/19 23:45 Urine Nitrite Negative (Negative) 06/09/19 23:45 Urine Bilirubin Negative (Negative) 06/09/19 23:45 Urine Urobilinogen Negative (Negative) 06/09/19 23:45 Ur Leukocyte Esterase Negative (Negative) 06/09/19 23:45 Diagnostic Findings [place], [place] [phone] Ultrasound Report Patient: APOLONIA MASSEYAdmit Date: 06/09/19 MR#: [id number]: [address] [place] [address] Acct ID:[id number]: Date: 1975City Zip: [place] [address] Age: 43Location: ED Sex: F Room/Bed: Att Phy:Diagnosis: ABCESS ON RIGHT BOOB,WEAK,FEVER Loly Phy: Anabel Diehl, MANOLOervice Date: 06/09/19 [facility] Phy:Interpreting Phy: Gustavo Solorio MD Admit Phy: Ordering Phy: Ruthie Nava PA-C cc: ~ ULTRASOUND RIGHT BREAST LIMITED CLINICAL HISTORY: Right breast erythema and induration. Pain. Clinical concern for abscess. COMPARISON STUDY: Ultrasound of the right breast dated 04/11/2019. FINDINGS: Real-time, grayscale, and color flow sonography of the right breast is performed. There is a complex collection identified at the site of interest in the 3:00 position which measures 5.4 x 4.7 x 3.6 cm. No internal flow is identified. There is peripheral hyperemia on color imaging. IMPRESSION: 1. There is a complex fluid collection in the right breast as above typical in appearance for abscess. 2. Note that this does not constitute a cancer screening examination. Electronically signed by: Gustavo Solorio M.D. 06/09/2019 6:13 PM Dictated: 06/09/191810 Transcribed: 06/09/191810 Code Status & VTE Plan Code Status Full code VTE Prophylaxis Plan VTE Prophylaxis will be ordered: Yes PG Care Time/CCT Total # of Minutes Spent Total Time Spent with Patient: Total time spent is greater than 50% in coordin ation of care (as documented) at patient's floor/unit and/or counseling patient: Coding Level of Care Code 69884 OBS Care - Level 3 Diagnoses Breast abscess of female N61.1 Abscess of skin AND/OR subcutaneous tissue L02.219 Site of cutaneous abscess: trunk Site of cutaneous abscess of trunk: unspecified site Asthma J45.909 (1) Abscess of skin AND/OR subcutaneous tissue Site of cutaneous abscess: trunk Site of cutaneous abscess of trunk: unspecified site Qualified Code(s): L02.219 - Cutaneous abscess of trunk, unspecified
[2019-06-10] MEDS: ACETAMINOPHEN 325 MG TAB PO PRN ×3 (00:39→17:00)
[2019-06-10] MEDS ORDERED: KETOROLAC 30 MG/ML VIAL IV ONE (05:22)
[2019-06-10] MEDS: KETOROLAC TROMETHAMINE 15 MG/ML VIAL IV PRN ×3 (08:14→22:23)
[2019-06-10] MEDS: NICOTINE 21 MG/24 HR TDSY TD SCH (08:53)
[2019-06-10] MEDS: CETIRIZINE HCL 10 MG TABLET PO SCH (08:54)
[2019-06-10] MEDS ORDERED: VANCOMYCIN HCL 1,000 MG in SODIUM CHLORIDE 0.9% 250 ML IV SCH (09:00)
--- NOTE | 2019-06-10 09:21 | Surgery Consultation ---
Date of Consultation June 10, 2019 Assessment & Plan (1) Breast abscess of female: 43-year-old female with breast abscess, ~5 cm on US. Discussed with patient and primary team that aspiration with ultrasound guidance is the standard of care, and she has no indication for an open incision and drainage at this time. Recommend US guided aspiration by radiology If unable to be performed until breast center open, then recommend abx consultation with breast center on Tuesday. We did discuss that if they are unable to obtain adequate drainage with an aspiration then she may require incision and drainage which could result in disfiguring of the breast and prolonged healing. Continue IV abx Please call with questions or concerns History of Present Illness Attending Physician: Manuel Hurd MD History of Present Illness 43-year-old female with history of recurrent right breast abscesses requiring antibiotics in the past, presented to the emergency department yesterday with a 3-day history of worsening right breast mastitis. She noticed a lump on Tuesday and it became very red and painful. She had a prior ultrasound back in March and a 5 cm abscess was seen and recommended aspiration, but she has been unable to schedule because each time she is on the schedule the weather prevents her from going to the appointment. She had an ultrasound performed yesterday which showed a 5 cm retroareolar abscess. After discussion with the ER she was admitted to the medicine service with IV antibiotics and plan for ultrasound-guided aspiration by radiology. She is feeling slightly better since starting antibiotics, she still has pain and thinks the redness is the same. Allergies Allergy/AdvReac Type Severity Reaction Status Date / Time cat dander Allergy Unknown . Verified 06/09/19 17:30 orange Allergy Unknown . Verified 06/09/19 17:30 Home Medications Home Medications Medication Instructions Recorded Confirmed Type albuterol sulfate 2.5 mg INHALATION DAILY PRN 06/09/19 06/09/19 History albuterol sulfate [Ventolin HFA] 1 - 2 puff INHALATION DAILY PRN 06/09/19 06/09/19 History cetirizine [Zyrtec] 10 mg PO QAM 06/09/19 06/09/19 History ibuprofen 800 mg PO TID PRN 06/09/19 06/09/19 History levofloxacin [Levaquin] 750 mg PO DAILY 06/09/19 06/09/19 History montelukast [Singulair] 10 mg PO QPM 06/09/19 06/09/19 History tolnaftate [Antifungal 1 applic TOPICAL DAILY 06/09/19 06/09/19 History (tolnaftate)] Patient History Medical History Asthma Breast abscess of female Social History Preferred Language: Telugu Communication Ability: Effective Beef Skinner Required: No Beliefs That Will Affect Care: None Current Living Situation: Spouse and Family Other Information That Helps Us Care for You: No Feels Safe at Home: Yes Safety Concerns: Feels Safe At This Time Smoking Status: Heavy tobacco smoker Tobacco Type: cigarettes ; Do You Dip or Chew Tobacco: No ; Hx Substance Use: No Review of Systems Review of Systems: All systems reviewed & are unremarkable except as noted in HPI & below Physical Exam Constitutional: WD/WN, vitals as above + morbidly obese Eyes: PERRL, conjunctivae normal, anicteric sclerae ENMT: external ear and nose normal, oropharynx normal Neck: trachea midline, no thyromegaly Respiratory: normal respiratory effort, lungs clear to auscultation Cardiovascular: RRR, no murmur, no edema Chest (Breasts): Breast: + breast tenderness (Right breast with erythema and induration around the areaola. There is a firm area in the retroareolar space consistent with a likely abscess. There is no fluctuance.) Gastrointestinal (Abdomen): normal bowel sounds, soft, nontender, no hepatosplenomegaly Musculoskeletal: no cyanosis or clubbing, extremities motor strength 5/5 Skin: no rashes, warm and dry Neurologic: PERRL, EOMI, accommodation nl, no face palsy, no dysarthria Psychiatric: A+Ox3, euthymic affect Lymphatic: no cervical or axillary lymphadenopathy Results & Data Vital Signs (Past 12 Hours) Vital Signs Temp Pulse Pulse Pulse Resp BP Pulse Ox 06/10/19 08:28 36.5 C 85 16 93/61 L 96 06/10/19 03:24 92 H 18 92 06/09/19 23:35 85 18 99 06/09/19 23:10 36.7 C 87 16 113/69 92 06/09/19 21:33 36.4 C L 95 H 16 118/76 97 Laboratory Results Laboratory Results - last 24 hr 06/09/19 06/09/19 06/09/19 16:31 16:31 16:31 WBC 12.90 H RBC 4.66 Hgb 14.1 Hct 41.5 MCV 89.1 MCH 30.3 MCHC 34.0 RDW Std Deviation 43.7 RDW Coeff of Gina 13.4 Plt Count 249 MPV 9.9 Immature Gran % (Auto) 0.2 Neut % (Auto) 75.0 Lymph % (Auto) 13.4 Ness % (Auto) 8.8 Eos % (Auto) 2.3 Baso % (Auto) 0.3 Immature Gran # (Auto) 0.02 Neut # (Auto) 9.68 H Lymph # (Auto) 1.73 Ness # (Auto) 1.13 H Eos # (Auto) 0.30 Baso # (Auto) 0.04 PT 11.2 INR 1.1 APTT 28.2 PTT Ratio 1.0 Sodium 137 Potassium 4.0 Chloride 106 Carbon Dioxide 27 Anion Gap 4.0 BUN 6 L Creatinine 0.97 Est Cr Clr Drug Dosing 86.9 Est GFR ( Amer) 82.3 Est GFR (Non-Af Amer) 71.0 BUN/Creatinine Ratio 6.5 L Glucose 89 Lactate Calcium 8.6 Total Bilirubin 0.4 AST 8 L ALT 20 Alkaline Phosphatase 80 Total Protein 7.1 Albumin 3.1 L Globulin 4.0 Albumin/Globulin Ratio 0.8 L Urine Color Urine Appearance Urine pH Ur Specific [place] Urine Protein Urine Glucose (UA) Urine Ketones Urine Blood Urine Nitrite Urine Bilirubin Urine Urobilinogen Ur Leukocyte Esterase 06/09/19 06/09/19 16:31 23:45 WBC RBC Hgb Hct MCV MCH MCHC RDW Std Deviation RDW Coeff of Gina Plt Count MPV Immature Gran % (Auto) Neut % (Auto) Lymph % (Auto) Ness % (Auto) Eos % (Auto) Baso % (Auto) Immature Gran # (Auto) Neut # (Auto) Lymph # (Auto) Ness # (Auto) Eos # (Auto) Baso # (Auto) PT INR APTT PTT Ratio Sodium Potassium Chloride Carbon Dioxide Anion Gap BUN Creatinine Est Cr Clr Drug Dosing Est GFR ( Amer) Est GFR (Non-Af Amer) BUN/Creatinine Ratio Glucose Lactate 0.7 Calcium Total Bilirubin AST ALT Alkaline Phosphatase Total Protein Albumin Globulin Albumin/Globulin Ratio Urine Color Yellow Urine Appearance Clear Urine pH 5.5 Ur Specific [place] 1.026 Urine Protein Negative Urine Glucose (UA) Negative Urine Ketones Negative Urine Blood Negative Urine Nitrite Negative Urine Bilirubin Negative Urine Urobilinogen Negative Ur Leukocyte Esterase Negative Diagnostic Findings ULTRASOUND RIGHT BREAST LIMITED CLINICAL HISTORY: Right breast erythema and induration. Pain. Clinical concern for abscess. COMPARISON STUDY: Ultrasound of the right breast dated 04/11/2019. FINDINGS: Real-time, grayscale, and color flow sonography of the right breast is performed. There is a complex collection identified at the site of interest in the 3:00 position which measures 5.4 x 4.7 x 3.6 cm. No internal flow is identified. There is peripheral hyperemia on color imaging. IMPRESSION: 1. There is a complex fluid collection in the right breast as above typical in appearance for abscess. 2. Note that this does not constitute a cancer screening examination. PG Care Time/CCT Total # of Minutes Spent Total Time Spent with Patient: Total time spent is greater than 50% in coordination of care (as documented) at patient's floor/unit and/or counseling patient: Coding Level of Care Code 97862 Office/OBS Consult Lvl 4 Diagnoses Breast abscess of female N61.1
[2019-06-10] MEDS: SODIUM CHLORIDE 0.9% 1000ML 1,000 ML IV SCH ×2 (09:48→22:22)
[2019-06-10] MEDS ORDERED: VANCOMYCIN HCL 1,250 MG in SODIUM CHLORIDE 0.9% 250 ML IV SCH ×2 (10:00→22:00)
--- NOTE | 2019-06-10 12:51 | Hospitalist Progress Note ---
Date of Service June 10, 2019 Assessment & Plan (1) Breast abscess of female: Right breast abscess and cellulitis- this was initially found in March after she had a recent fine needle biopsy. US showing right abscess 5.4 x 4.7 x 3.6 cm. She was unable to get to her appointments for aspiration outpatient so this infection has not yet been fully treated. Continue vancomycin IV and ceftriaxone IV begun in the ED. BC pending Consulted surgery - recommend radiology aspiration tomorrow (2) Abscess of skin AND/OR subcutaneous tissue: See above (3) Asthma: Albuterol sulfate HFA 2 puffs 4 times daily as needed. Montelukast 10 mg p.o. every evening Subjective Ms. Hayes is feeling better than when she came in, no further aches or chills. Her breast has had some exudate which she can express from the nipple at times and large area of erythema. It has been cultured in the past with no growth. I don't see this in our records but perhaps it was done through a different health system. ROS Constitutional: no chills, aches, sweats or fever Respiratory: no sob,cough, sputum, or wheezing Cardiac: no chest pain, palpitations, edema, orthopnea or lightheadedness GI: no abdominal pain, nausea, vomiting, diarrhea or constipation : no dysuria or hesitancy Extremities: no joint pain or weakness Skin: see HPI All other systems reviewed and negative Physical Exam Physical Exam: General: no distress Eyes: normal inspection, PERLL Respiratory: chest non tender, clear to auscultation, normal breath sounds, no respiratory distress, no accessory muscle use Cardiac: regular rate and rhythm, no rub or gallop, no murmur, no edema, no jvd GI/: active bowel sounds, no abd pain or tenderness, soft, non distended Extremities: normal range of motion, normal strength, non tender Neuro/Psych: alert and oriented x 3, normal mood and affect Skin: normal color, dry, right breast erythema around areola and extending up the breast a little less than half of the way Results & Data Vital Signs (Past 12 Hours) Vital Signs Temp Pulse Pulse Resp BP Pulse Ox 06/10/19 08:28 36.5 C 85 16 93/61 L 96 06/10/19 03:24 92 H 18 92 PG Care Time/CCT Total # of Minutes Spent Total Time Spent with Patient: Total time spent is greater than 50% in coordinat ion of care (as documented) at patient's floor/unit and/or counseling patient: Coding Level of Care Code 12854 Subseq Hosp Care Lvl 2 Diagnoses Breast abscess of female N61.1 Abscess of skin AND/OR subcutaneous tissue L02.219 Site of cutaneous abscess: trunk Site of cutaneous abscess of trunk: unspecified site Asthma J45.909 (1) Abscess of skin AND/OR subcutaneous tissue Site of cutaneous abscess: trunk Site of cutaneous abscess of trunk: unspecified site Qualified Code(s): L02.219 - Cutaneous abscess of trunk, unspecified
--- NOTE | 2019-06-10 13:55 | Pharmacy Report ---
Pharmacy Abx Initial Consult - Date of Service June 10, 2019 - Pharmacy Dosing Scope Date of Consult: 06/09/19 Consultation requested by: Dr. England Pharmacy is consulted to initiate vancomycin IV dosing therapy, order appropriate labs and adjust drug dose/frequency. - Subjective The patient is a 43 year old F admitted on 06/09/19 20:31. - Objective Height: 5 ft 3 in Weight: 108.1 kg Vital Signs (Past 12hrs): Vital Signs Temp Pulse Pulse Resp BP Pulse Ox 06/10/19 08:28 36.5 C 85 16 93/61 L 96 06/10/19 03:24 92 H 18 92 Lab Results (24hrs): Laboratory Tests (24 Hours) 06/09/19 06/09/19 16:31 16:31 WBC 12.90 H Neut # (Auto) 9.68 H Creatinine 0.97 Est Cr Clr Drug Dosing 86.9 Micro Results: 06/09/19 17:00 Aerobic Blood Culture - Pending Blood Anaerobic Blood Culture - Pending 06/09/19 16:31 Aerobic Blood Culture - Pending Blood Anaerobic Blood Culture - Pending - Assessment & Plan Assessment 43 year old F receiving empiric vancomycin and ceftriaxone for treatment of right breast abscess. Plan is for US guided aspiration by radiology tomorrow. Empiric broad spectrum antibiotics warranted at this time. 1000 dose of vanco on 06/10 delayed due to issue with IV site - finished infusing around 1400. Microbiology: Blood cultures x 2: pending Plan Vancomycin IV * Estimated PK Parameters: Vd 0.54 L/kg, Supa 0.077 hr-1, t1/2 9 hr * Loading dose: 2750 mg (25 mg/kg) * Maintenance dose: 1250 mg IV (12 mg/kg) every 12 hours * Goal trough level for cellulitis : 10 to 20 mcg/mL * Trough level ordered for 06/12/19 @0130 * A less than traditional dose has been selected due to likelihood of drug accumulation in obese patient. Ceftriaxone IV * 2 g IV q24 h - appropriate based on weight and indication Pharmacy will continue to follow and will adjust dose/frequency as necessary. Thank you.
[2019-06-10] MEDS ORDERED: cefTRIAXone SODIUM 2,000 MG/70 ML BAG IV SCH (17:00)
[2019-06-10] MEDS: MONTELUKAST SODIUM 10 MG TABLET PO SCH (20:53)
[2019-06-10] MEDS: MoRPHine SULFATE 4 MG/ML 1 ML CARP\\VIAL IV PRN (20:53)
[2019-06-11] MEDS: VANCOMYCIN HCL 1,250 MG in SODIUM CHLORIDE 0.9% 250 ML IV SCH ×2 (01:48→13:24)
[2019-06-11] MEDS: KETOROLAC TROMETHAMINE 15 MG/ML VIAL IV PRN ×3 (05:02→19:08)
[2019-06-11 06:39] LABS: Creatinine Clr Calc Pharmacy 99.6 ml/min; Est GFR (African American) 96.6; Est GFR (Non-African American) 83.3
[2019-06-11 08:23] LABS: Hematocrit (blood only) 39.1 % (37-47); Hemoglobin 12.8 g/dL (12.0-16.0); Mean Corpuscular Hemoglobin 29.5 pg (25-34); Mean Corpuscular Hgb Conc 32.7 g/dL (32-36); Mean Corpuscular Volume 90.1 fL (80-100); Mean Platelet Volume 10.6 fL (7.4-10.4); Platelet Count 240 K/uL (130-400); RDW Coefficient of Variation 13.3 % (11.5-14.5); RDW Standard Deviation 44.4 fL (36.4-46.3); Red Blood Count 4.34 M/uL (4.2-5.4); White Blood Count 10.97 K/uL (4.8-10.8)
[2019-06-11] MEDS: SODIUM CHLORIDE 0.9% 1000ML 1,000 ML IV SCH ×2 (08:44→10:05)
[2019-06-11] MEDS: CETIRIZINE HCL 10 MG TABLET PO SCH (08:45)
[2019-06-11] MEDS: NICOTINE 21 MG/24 HR TDSY TD SCH (08:45)
[2019-06-11] MEDS: MoRPHine SULFATE 4 MG/ML 1 ML CARP\\VIAL IV PRN ×2 (08:49→12:39)
[2019-06-11] MEDS ORDERED: VANCOMYCIN TROUGH ONE ×2 (09:30→17:30)
--- NOTE | 2019-06-11 12:43 | Hospitalist Progress Note ---
Date of Service June 11, 2019 Assessment & Plan (1) Breast abscess of female: - Right breast abscess & cellulitis 2/2 recent fine needle biopsy; US showed abscess 5.4 x 4.7 x 3.6 cm. - Pt. was not able to attend outpatient appointments for aspiration. - Convert Ceftriaxone/Vanco IV to Doxycycline & Keflex PO x 7 days. - Consulted general surgery, s/p drainage by radiology today with removal of 28 cc. Gram stain and culture are pending. - Blood cultures negative to date. (2) Abscess of skin AND/OR subcutaneous tissue: - As noted above. (3) Tobacco abuse: - Nicotine patch. - Encourage tobacco cessation. (4) Asthma: - Singulair daily. - Albuterol prn. DVT ppx: SCDs; hold pharmacologic ppx for procedure. Dispo: Med/surg for treatment of breast abscess. Discharge tomorrow pending results of gram stain and culture of abscess. Subjective Pt. feels well overall after drainage of breast abscess. She states pressure in breast is improved. Redness over skin is stable, slightly improved with abx. Will continue to monitor. Review of Systems Review of Systems: All systems reviewed & are unremarkable except as noted in HPI & below Constitutional: no fever, no chills, no fatigue and no weakness Respiratory: no cough, no dyspnea, no dyspnea on exertion and no wheezing Cardiovascular: no chest pain, no palpitations and no edema Gastrointestinal: no abdominal pain, no nausea and no constipation Genitourinary: no difficulty urinating Musculoskeletal: no back pain and no joint pain Integumentary: + erythema Physical Exam Physical Exam: General: Resting comfortably HEENT: NC/AT; PERRLA with EOMI; [place] conjunctiva, MMM. No erythema of posterior pharynx Neck: Supple and nontender Cardiac: RRR Lungs: CTA bilaterally Abdomen: Bowel normoactive X 4; Nontender to palpation Extremities: Warm. No edema present Neuro: No focal weakness Skin: erythema noted over right breast, surrounding areola. Results & Data Vital Signs (Past 12 Hours) Vital Signs Temp Pulse Resp BP Pulse Ox 06/11/19 07:05 36.9 C 86 16 142/80 H 96 Laboratory Results 06/11/19 06/11/19 Range/Units 04:57 04:53 WBC 10.97 H (4.8-10.8) K/uL RBC 4.34 (4.2-5.4) M/uL Hgb 12.8 (12.0-16.0) g/dL Hct 39.1 (37-47) % MCV 90.1 (80-100) fL MCH 29.5 (25-34) pg MCHC 32.7 (32-36) g/dL RDW Std Deviation 44.4 (36.4-46.3) fL RDW Coeff of Gina 13.3 (11.5-14.5) % Plt Count 240 (130-400) K/uL MPV 10.6 H (7.4-10.4) fL Creatinine 0.85 (0.6-1.2) mg/dl Est Cr Clr Drug Dosing 99.6 ml/min Est GFR ( Amer) 96.6 Est GFR (Non-Af Amer) 83.3 PG Care Time/CCT Total # of Minutes Spent Total Time Spent with Patient: Total time spent is greater than 50% in coordination of care (as documented) at patient's floor/unit and/or counseling patient: Coding Level of Care Code 62888 Subseq Hosp Care Lvl 2 Diagnoses Breast abscess of female N61.1 Abscess of skin AND/OR subcutaneous tissue L02.219 Site of cutaneous abscess: trunk Site of cutaneous abscess of trunk: unspecified site Tobacco abuse Z72.0 Asthma J45.909 (1) Abscess of skin AND/OR subcutaneous tissue Site of cutaneous abscess: trunk Site of cutaneous abscess of trunk: unspecified site Qualified Code(s): L02.219 - Cutaneous abscess of trunk, unspecified
--- NOTE | 2019-06-11 13:04 | Ultrasound Report ---
ULTRASOUND GUIDED RIGHT BREAST ABSCESS ASPIRATION CLINICAL HISTORY: Right breast abscess. COMPARISON STUDY: Right breast ultrasound June 09, 2019. PROCEDURE: The procedure, risks and benefits were discussed with the patient and informed written con sent was obtained. The procedure was performed by Dr. Reyna following a timeout. Skin of the righ t breast was prepped and draped in sterile fashion and local anesthesia was achieved with 1% lidocain e. Under direct ultrasound guidance, a 3 1/2 inch 18-gauge needle was directed into the right retroar eolar fluid collection. 28 cc of purulent bloody fluid was aspirated and sent to laboratory for ellyn sis as ordered. The collection was partially aspirated. Approximately 60% of the fluid could be aspir ated. Moderate amount of residual complex fluid was noted. IMPRESSION: Ultrasound guided aspiration of 28 cc of purulent bloody fluid from a right retroareolar breast absce ss. Approximately 60% of the fluid could be aspirated. Moderate residual complex fluid could not be a spirated percutaneously. Fluid sent to the laboratory for analysis as ordered. ACT 112: Negative or not required by law. Electronically signed by: Dylan Reyna M.D. 06/11/2019 1:02 PM
--- NOTE | 2019-06-11 13:12 | Surgery Progress Note ---
Date of Service June 11, 2019 Assessment & Plan (1) Breast abscess of female: S/p radiology drainage of breast abscess, per report about 28cc purulent fluid aspirated - patient clinically feeling well after drainage - from our standpoint okay to transition to po antibiotics - can discharge today if cleared by medicine team - recommend patient follow up at breast center for repeat imaging to ensure abscess is continuing to resolve - pt seen and examined with Dr. Goddard Subjective Patient says is feeling well after drainage of breast abscess. she is currently eating lunch. Physical Exam Physical Exam: awake/alert Constitutional: no acute distress Results & Data Vital Signs (Past 12 Hours) Vital Signs Temp Pulse Resp BP Pulse Ox 06/11/19 07:05 36.9 C 86 16 142/80 H 96 [place], [place] [phone] Ultrasound Report Patient: APOLONIA MASSEYAdmit Date: 06/09/19 MR#: [id number]: [address] [place] [address] Acct ID:[id number]: Date: 1975[facility] Zip: [place] [address] Age: 43Location: 3N Sex: F Room/Bed: [facility] Att Phy: Mina Marinelli M.D.Diagnosis: RIGHT BREAST ABSCESS/CELLULITIS Loly Phy: Anabel Diehl CRNPService Date: 06/11/19 Fam Phy:Interpreting Phy: Dylan Reyna MD Admit Phy: Jose G England M.D. Ordering Phy: Stiven Grande Jr, PA-C cc: ~ ULTRASOUND GUIDED RIGHT BREAST ABSCESS ASPIRATION CLINICAL HISTORY: Right breast abscess. COMPARISON STUDY: Right breast ultrasound June 09, 2019. PROCEDURE: The procedure, risks and benefits were discussed with the patient and informed written consent was obtained. The procedure was performed by Dr. Reyna following a timeout. Skin of the right breast was prepped and draped in sterile fashion and local anesthesia was achieved with 1% lidocaine. Under direct ultrasound guidance, a 3 1/2 inch 18-gauge needle was directed into the right retroareolar fluid collection. 28 cc of purulent bloody fluid was aspirat ed and sent to laboratory for analysis as ordered. The collection was partially aspirated. Approximately 60% of the fluid could be aspirated. Moderate amount of residual complex fluid was noted. IMPRESSION: Ultrasound guided aspiration of 28 cc of purulent bloody fluid from a right retroareolar breast abscess. Approximately 60% of the fluid could be aspirated. Moderate residual complex fluid could not be aspirated percutaneously. Fluid sent to the laboratory for analysis as ordered. ACT 112: Negative or not required by law. Electronically signed by: Dylan Reyna M.D. 06/11/2019 1:02 PM PG Care Time/CCT Total # of Minutes Spent Total Time Spent with Patient: Total time spent is greater than 50% in coordination of care (as documented) at patient's floor/unit and/or counseling patient: Coding Level of Care Code 69630 Subseq Hosp Care Lvl 1 Diagnoses Breast abscess of female N61.1
[2019-06-11] MEDS: SACCHAROMYCES BOULARDII 250 MG CAP PO SCH (17:32)
[2019-06-11] MEDS: cephALEXin 500 MG CAP PO SCH ×2 (17:33→20:51)
[2019-06-11] MEDS: DOXYCYCLINE HYCLATE 100 MG CAP PO SCH (20:51)
[2019-06-11] MEDS: MONTELUKAST SODIUM 10 MG TABLET PO SCH (20:51)
[2019-06-11] MEDS ORDERED: SULFAMETHOXAZOLE/TRIMETHOPRIM DS 800/160MG TAB PO SCH (21:00)
[2019-06-12] MEDS ORDERED: VANCOMYCIN TROUGH ONE (01:30)
[2019-06-12 01:56] LABS: Hematocrit (blood only) 37.7 % (37-47); Hemoglobin 12.4 g/dL (12.0-16.0); Mean Corpuscular Hemoglobin 29.3 pg (25-34); Mean Corpuscular Hgb Conc 32.9 g/dL (32-36); Mean Corpuscular Volume 89.1 fL (80-100); Platelet Count 248 K/uL (130-400); RDW Coefficient of Variation 13.3 % (11.5-14.5); RDW Standard Deviation 43.4 fL (36.4-46.3); Red Blood Count 4.23 M/uL (4.2-5.4)
[2019-06-12] MEDS: KETOROLAC TROMETHAMINE 15 MG/ML VIAL IV PRN (02:10)
[2019-06-12 02:15] LABS: BUN Creatinine Ratio 8.7 (10-20); Calcium 8.6 mg/dl (8.5-10.1); Est GFR (African American) 88.9; Est GFR (Non-African American) 76.7; Potassium 3.8 mmol/L (3.5-5.1)
[2019-06-12] MEDS: SACCHAROMYCES BOULARDII 250 MG CAP PO SCH (09:01)
[2019-06-12] MEDS: cephALEXin 500 MG CAP PO SCH ×2 (09:02→13:06)
[2019-06-12] MEDS: CETIRIZINE HCL 10 MG TABLET PO SCH (09:02)
[2019-06-12] MEDS: NICOTINE 21 MG/24 HR TDSY TD SCH (09:02)
[2019-06-12] MEDS: DOXYCYCLINE HYCLATE 100 MG CAP PO SCH (09:02)
--- NOTE | 2019-06-12 11:21 | Surgery Progress Note ---
Date of Service June 12, 2019 Assessment & Plan (1) Breast abscess of female: Day#1 s/p radiology drainage of breast abscess, per report about 28cc purulent fluid aspirated - patient clinically feeling well after drainage - patient has transitioned to PO abx; patient is afebrile and WBC 9.8 today - patient believes area of erythema is less red and is not spreading - can discharge today if cleared by medicine team - recommend patient follow up at breast center in 1 wk for repeat imaging to ensure abscess is continuing to resolve Subjective Patient continues to feel well s/p aspiration of breast abscess. No fevers. She believes the redness is lessening. Physical Exam Physical Exam: awake/alert Constitutional: well developed and well nourished; no acute distress Chest (Breasts): Additional Comments: erythema over right breast, bandage over aspiration site Results & Data Vital Signs (Past 12 Hours) Vital Signs Temp Pulse Pulse Resp BP Pulse Ox 06/12/19 07:38 37 C 80 17 118/72 96 06/11/19 23:42 36.3 C L 84 16 162/92 H 98 06/11/19 23:36 96 H 16 98 PG Care Time/CCT Total # of Minutes Spent Total Time Spent with Patient: Total time spent is greater than 50% in coordination of care (as documented) at patient's floor/unit and/or counseling patient: Coding Level of Care Code 35407 Subseq Hosp Care Lvl 1 Diagnoses Breast abscess of female N61.1
--- NOTE | 2019-06-12 15:23 | Discharge Summary ---
Date of Service June 12, 2019 Admission HPI Per Admitting Provider The patient is a 43-year-old female with a past medical history including asthma, allergy and obesity, who presents to the emergency department with worsening pain, redness and warmth of right breast over the past 3 days, particularly worsening the day of admission. She reports having 2 previous episodes of abscesses, with the first undergoing a biopsy which was negative at that time. The second resolved with oral Levaquin. The third episode, which is today, has been treated with 2 days of Levaquin, and since it worsens considerably today, she presented to ED for assessment Admission Exam Per Admitting Provider The patient is awake, alert and oriented 3, well developed and well nourished, normocephalic and atraumatic, lying in bed and in no acute distress. HEENT--PERRL, EOMI, mucous membranes and oropharynx normal. Neck--supple. No JVD. No bruits. Thyroid normal, trachea midline, no adenopathy. Heart--normal S1 and S2. No murmurs, rubs or gallops. Lungs--clear bilaterally, no respiratory distress, no accessory muscle use. Abdomen--normal bowel sounds and soft. Nontender. Nondistended, no hernias or masses, no organomegaly. Extremities--no cyanosis or clubbing. No edema. There are good distal pulses b/l. Dermatologic--right breast with erythema centered over the areola and medially,with tenderness throughout Neurologic--cranial nerves II through XII grossly intact. Rheumatologic--normal range of motion. Psychiatric--normal affect. Principal Diagnosis Breast abscess Discharge Exam General: Resting comfortably HEENT: NC/AT; PERRLA with EOMI; [place] conjunctiva, MMM. No erythema of posterior pharynx Neck: Supple and nontender Cardiac: RRR Lungs: CTA bilaterally Abdomen: Bowel normoactive X 4; Nontender to palpation Extremities: Warm. No edema present Neuro: No focal weakness Skin: erythema noted over right breast improving. No drainage or open wound noted on exam. Discharge Data Allergies Allergy/AdvReac Type Severity Reaction Status Date / Time Sulfa (Sulfonamide Allergy Severe Verified 06/11/19 16:03 Antibiotics) oxycodone Allergy Intermediate Nausea Verified 06/11/19 16:03 cat dander Allergy Unknown . Verified 06/09/19 17:30 orange Allergy Unknown . Verified 06/09/19 17:30 Consultations 06/09/19 19:24 ED Decision to Admit Stat 06/10/19 08:10 Consult General Surgery Routine Ordered Studies 06/09/19 16:20 US breast RT complete Stat 06/11/19 08:26 US guide abscess drain Routine 06/11/19 12:21 US guide needle placement Routine Hospital Course (1) Breast abscess of female: Right breast abscess & cellulitis 2/2 recent fine needle biopsy; US showed abscess 5.4 x 4.7 x 3.6 cm. Pt. was not able to attend outpatient appointments for aspiration. Converted Ceftriaxone/Vanco IV to Doxycycline & Keflex PO x 7 days. Consulted general surgery, s/p drainage by radiology on 06/11 with removal of 28 cc. Gram stain +gram positive cocci & bacilli. Blood cultures negative to date. Will need f/u breast US on Jun 20, 2019. (2) Abscess of skin AND/OR subcutaneous tissue: As noted above. (3) Tobacco abuse: Nicotine patch. Encouraged tobacco cessation. (4) Asthma: Singulair daily. Albuterol prn. Discharged to home on 06/12/19. Total Time Total Time Spent Total Time Spent (In Minutes): >30 minutes Total Time Includes: Examination of the Patient, Discharge Planning, Medication Reconciliation, Communication With Other Providers and Other Discharge Plan Discharge Items Patient Disposition: Home - Self-Care Reason For Visit: RIGHT BREAST ABSCESS/CELLULITIS Discharge Diagnosis: Right breast abscess/cellulitis Condition on Discharge: Fair Goals: You have been hospitalized for an acute medical problem. During your stay at [facility], we have made an effort to correct the problem that brought you to the hospital while keeping you as comfortable as possible. Medications were used to bring your condition under control and your discharge instructions will include directions for any medications you should take after leaving the hospital. Please make sure you see your Primary Care Provider as part of your follow up plan. Activity: As commented below Exercise/Sports: Wait until after follow-up appointment Non-emergency contact: Primary Care Provider Call non-emergency contact if: you have any medication questions, your symptoms worsen, you have a fever, your wound has increased redness, your wound has increased drainage and your wound pain has increased Follow-up/Referrals: [facility] [Other] - 06/20/19 10:35 am (Please, follow up at [facility], for an ultrasound of your right breast, on TuesdayJune 20 at 10:35 am. *The office is located in [address] of [facility], next to this hospital. If you need to change this appointment, call the office at [phone].) Puneet Diehl CRNP [Primary Care Provider] - 06/14/19 10:00 am (Please, follow up with Puneet FAUST on June 14 at 10:00 am. *If you need to change this appointment, call the office at [phone]. THE RESULTS FROM YOUR BREAST ULTRASOUND WILL BE SENT TO PUNEET FAUST) Diet: Regular Addtl Attending Provider Instructions: 1. Breast abscess/cellulitis * Please take Keflex 500 mg four times daily and Doxycycline 100 mg twice daily for treatment of infection. * Please follow up with PCP as scheduled on 06/14/19. * Please follow up for breast ultrasound on Jun 20, 2019 in the breast center. * Consider the addition of a daily probiotic in the setting of antibiotic therapy. Pending Studies at Discharge: Yes Studies:: I&D culture results pending. Stand-Alone Forms: My [facility], Smoking Cessation Medications and DC Order Prescriptions: Continued albuterol sulfate 2.5 mg /3 mL (0.083 %) solution for nebulization 2.5 mg inhalation DAILY PRN (Reason: Shortness Of Breath Or Wheezing) RF: 0 cetirizine [Zyrtec] 10 mg tablet 10 mg PO QAM RF: 0 ibuprofen 800 mg tablet 800 mg PO TID PRN (Reason: Pain) RF: 0 tolnaftate [Antifungal (tolnaftate)] 1 % cream 1 applic TOPICAL DAILY RF: 0 montelukast [Singulair] 10 mg tablet 10 mg PO QPM RF: 0 albuterol sulfate [Ventolin HFA] 90 mcg/actuation HFA aerosol inhaler 1 - 2 puff INHALATION DAILY PRN (Reason: Shortness Of Breath Or Wheezing) RF: 0 Discontinued levofloxacin [Levaquin] 750 mg tablet 750 mg PO DAILY RF: 0 Discharge Orders: Discharge Order (Routine); Ordered 06/12/19 Ordered By: Yue Hill/Other Patient Handouts: Cellulitis Dc Admission Data Admit Date/Time: 06/09/19 20:31 Attending Provider: Mina Marinelli Admit Provider: Jose G England Primary Care Provider: Puneet Diehl Other Providers: Manuel Hurd ; Toro Goddard ; Jose G England Other Interventions: Discharge Summary Assessment (RN) Last Done: 06/12/19 12:53 DC Date/Time DO NOT enter until pt leaves facility: 06/12/19 14:43 Supervising Physician Co-Signing Physician Notes During my face face encounter with patient, I had personally examined the patient and performed a history of her hospital stay. After reviewing above document, my history and physical examination did not differ from APC's I answered all of the patient's questions. Patient was treated with IV antibiotics for her breast abscess: ceftriazone and vanco. This lesion was aspirated which improved her symptoms. Patient will be dischage on oral antibiotics that are documented above: doxy and keflex. Coding Level of Care Code D/C Day Management >30 mins Diagnoses Breast abscess of female N61.1 Abscess of skin AND/OR subcutaneous tissue L02.219 Site of cutaneous abscess: trunk Site of cutaneous abscess of trunk: unspecified site Tobacco abuse Z72.0 Asthma J45.909
== END 2019-06-12 14:43 | disposition home or self-care (01) | DRG 601 ==
LOC: 3N 15:44 → ED 15:44 → SUATTDRO 20:31 → 3N 20:49

== ENCOUNTER 2019-11-13 22:46 | Observation (INO) ==
[2019-11-13] MEDS ORDERED: ONDANSETRON INJ 2 MG/ML 2 ML VIAL IV STA (23:06)
[2019-11-13] MEDS ORDERED: FAMOTIDINE 20MG IV PUSH 20 MG/5 ML SYR IV STA (23:06)
[2019-11-13] MEDS ORDERED: PANTOprazole 80 MG in DEXTROSE 5% 100 ML IV ONE (23:06)
[2019-11-13] MEDS ORDERED: SODIUM CHLORIDE 0.9% 1000ML 1,000 ML IV SCH (23:15)
--- NOTE | 2019-11-13 23:18 | Emergency Department Note ---
History of Present Illness General Chief complaint: GI Assessment History of Present Illness Maximum Pain Intensity: 2 This 43-year-old presents to the ER complaining of nausea, vomiting, epigastric pain for the past few days he developed hematemesis today Location: Epigastric region Quality: Nauseated Severity: Moderate Duration: Started Tuesday Timing: Started after eating a tomato and mayonnaise sandwich Context: Patient started to vomit blood and came in Modifying factors: better with nothing; worse with eating Patient states he is been vomiting heavily over the weekend. No diarrhea. Today she tried noodles and mashed potatoes and then tonight started vomiting and then the fourth vomit had blood in it. It was coffee-ground in nature. No black or tarry stool. No history of GI bleed. No recent NSAID use. Patient denies lightheadedness, dizziness, dyspnea, fevers, flulike illness. No history of blood transfusions in the past. She denies alcohol use. No drug use. Home Medications Home Medications Medication Instructions Recorded Confirmed Type albuterol sulfate 2.5 mg INHALATION DAILY PRN 06/09/19 11/13/19 History albuterol sulfate [Ventolin HFA] 1 - 2 puff INHALATION DAILY PRN 06/09/19 11/13/19 History cetirizine [Zyrtec] 10 mg PO QAM 06/09/19 11/13/19 History venlafaxine 37.5 mg PO DAILY 11/13/19 11/13/19 History Allergies Allergy/AdvReac Type Severity Reaction Status Date / Time Sulfa (Sulfonamide Allergy Severe Verified 06/11/19 16:03 Antibiotics) oxycodone Allergy Intermediate Nausea Verified 06/11/19 16:03 cat dander Allergy Unknown . Verified 06/09/19 17:30 orange Allergy Unknown . Verified 06/09/19 17:30 Past Med/Surg History Medical History (Updated 11/14/19 @ 01:10 by Ayaka Durham PA-C) Asthma Breast abscess of female (Acute) Surgical History No pertinent past surgical history Social History Preferred Language: Turkmen Communication Ability: Effective Cray Fishing Hand Required: No Beliefs That Will Affect Care: None Current Living Situation: Spouse and Family Feels Safe at Home: Yes Smoking Status: Current every day smoker Tobacco Type: cigarettes ; Second Hand Exposure: No ; Hx Substance Use: No Review of Systems A total of 10 systems reviewed and were otherwise negative Physical Exam Vital Signs Vital Signs - 24 hr 11/13/19 22:54 11/13/19 23:25 11/13/19 23:50 Temperature 36.9 C Temperature Source Oral Pulse Rate 99 H Pulse Rate [Bilateral Apical] 99 H Respiratory Rate 20 20 Respiratory Effort / Characteristics Non-Labored Respiratory Depth Normal Blood Pressure 137/102 H Blood Pressure [Left Arm] 172/122 H Blood Pressure Mean 113 Blood Pressure Mean [Left Arm] 138 Pulse Oximetry 97 98 99 Oxygen Delivery Method Room Air Room Air Room Air Sepsis Recent Fever Within 48 Hours No Sepsis Action Taken by Nursing No Action Required 11/14/19 00:20 11/14/19 01:03 11/14/19 01:58 Temperature Temperature Source Pulse Rate Pulse Rate [Bilateral Apical] 88 71 83 Respiratory Rate 20 20 20 Respiratory Effort / Characteristics Respiratory Depth Normal Blood Pressure Blood Pressure [Left Arm] 173/118 H 147/96 H 131/92 Blood Pressure Mean Blood Pressure Mean [Left Arm] 136 113 105 Pulse Oximetry 99 98 98 Oxygen Delivery Method Room Air Room Air Room Air Sepsis Recent Fever Within 48 Hours Sepsis Action Taken by Nursing VITALS: Vitals are noted on the nurse's note and reviewed by myself. Vital signs mildly tachycardic. GENERAL: Pleasant female vomiting in front of me with coffee-ground emesis bag that is positive for blood on testing SKIN: The skin was without rashes, erythema, edema, or bruising. There is no tenting of the skin. Capillary reflex less than 2 seconds. HEAD: Normocephalic atraumatic. EARS: External auditory canals clear, tympanic membranes pearly bryan without erythema or effusion bilaterally. EYES: Pupils equal round and reactive to light and accommodation. Conjunctivae without injection, sclerae without icterus. Extraocular movements intact. NOSE: Patent, turbinates without inflammation or discharge. No sinus tenderness . MOUTH: Mucous membranes mildly dry. Pharynx without erythema or exudate. Uvula midline. Airway patent. Tongue does not deviate. NECK: Supple without nuchal rigidity. No lymphadenopathy. No thyromegaly. Cervical spine is nontender. No JVD. HEART: Regular rate and rhythm LUNGS: Clear to auscultation bilaterally without wheezes, rales or rhonchi. No retractions or accessory muscle use. ABDOMEN: Positive bowel sounds x 4. Normal tympanic percussion. Soft, epigastric tenderness, without masses or organomegaly. Gomez sign negative. No guarding or rebound tenderness. No CVA tenderness Rectal exam: Brown stool guaiac negative. MUSCULOSKELETAL: No muscle atrophy, erythema, or edema noted. NEURO: Patient was alert and oriented to person place and time. Normal sensation to light and sharp touch. No focal neurological deficits. Course Administered Medications Ioversol (Optiray 320 100ml) 100 ml IV ONCE PRN PRN Reason: Interaction Checking Stop: 11/18/19 00:47 Last Admin: 11/14/19 00:49 Dose: 90 ml Documented by: [id number] Discontinued Medications Sodium Chloride (Nss 1000ml) 1,000 mls @ 999 mls/hr IV .[id number] LIANNA Stop: 11/14/19 00:15 Last Infusion: 11/14/19 00:48 Dose: 0 mls/hr Documented by: [id number] Admin: 11/13/19 23:46 Dose: 999 mls/hr Documented by: [id number] Pantoprazole Sodium 80 mg/ (Dextrose) 100 mls @ 400 mls/hr IV NOW ONE Stop: 11/13/19 23:20 Last Infusion: 11/14/19 00:48 Dose: 0 mls/hr Documented by: [id number] Admin: 11/14/19 00:18 Dose: 400 mls/hr Documented by: [id number] Famotidine (Pepcid 20mg Iv Push) 20 mg in 5 mls @ 2.5 mls/min IV NOW STA Stop: 11/13/19 23:07 Last Admin: 11/13/19 23:46 Dose: 2.5 mls/min Documented by: [id number] Ondansetron HCl (Zofran) 4 mg IV ONE STA Stop: 11/13/19 23:07 Last Admin: 11/13/19 23:46 Dose: 4 mg Documented by: [id number] Medical Decision Making Medical Records Attestation: I reviewed the patient's medical records. Home Medications Current Medication List: was personally reviewed by me Laboratory Data Attestation: I reviewed the patient's lab results. Result diagrams: 11/13/19 23:42 11/13/19 23:42 Lab Results 11/13/19 11/13/19 11/13/19 Range/Units 00:06 23:42 23:42 WBC (4.8-10.8) K/uL RBC (4.2-5.4) M/uL Hgb (12.0-16.0) g/dL Hct (37-47) % MCV (80-100) fL MCH (25-34) pg MCHC (32-36) g/dL RDW Std Deviation (36.4-46.3) fL RDW Coeff of Gina (11.5-14.5) % Plt Count (130-400) K/uL MPV (7.4-10.4) fL Immature Gran % (Auto) % Neut % (Auto) % Lymph % (Auto) % [place] % (Auto) % Eos % (Auto) % Baso % (Auto) % Neut # (Auto) (1.4-6.5) K/uL Lymph # (Auto) (1.2-3.4) K/uL [place] # (Auto) (0.11-0.59) K/uL Eos # (Auto) (0-0.5) K/uL Baso # (Auto) (0-0.2) K/uL Immature Gran # (Auto) (0.00-0.02) K/uL PT (9.0-12.0) Seconds INR (0.9-1.1) APTT (21.0-31.0) Seconds PTT Ratio Sodium 139 (136-145) mmol/L Potassium 3.5 (3.5-5.1) mmol/L Chloride 105 (98-107) mmol/L Carbon Dioxide 28 (21-32) mmol/L Anion Gap 6.0 (3-11) BUN 11 (7-18) mg/dl Creatinine 1.13 (0.6-1.2) mg/dl Est Cr Clr Drug Dosing 76.2 ml/min Est GFR ( Amer) 68.5 Est GFR (Non-Af Amer) 59.1 BUN/Creatinine Ratio 9.3 L (10-20) Glucose 100 H (70-99) mg/dl Calcium 10.2 H (8.5-10.1) mg/dl Total Bilirubin 0.4 (0.2-1) mg/dl AST 20 (15-37) U/L ALT 56 (12-78) U/L Alkaline Phosphatase 85 (45-117) U/L Total Protein 8.1 (6.4-8.2) gm/dl Albumin 4.1 (3.4-5.0) gm/dl Globulin 4.0 (2.5-4.0) gm/dl Albumin/Globulin Ratio 1.0 (0.9-2) Lipase 78 (73-393) U/L HCG, Qual Negative (Negative) POC Stool Occult Blood Negative (Negative) Blood Type Antibody Screen 11/13/19 11/13/19 11/13/19 Range/Units 23:42 23:42 23:42 WBC 13.20 H (4.8-10.8) K/uL RBC 5.42 H (4.2-5.4) M/uL Hgb 16.1 H (12.0-16.0) g/dL Hct 48.8 H (37-47) % MCV 90.0 (80-100) fL MCH 29.7 (25-34) pg MCHC 33.0 (32-36) g/dL RDW Std Deviation 44.4 (36.4-46.3) fL RDW Coeff of Gina 13.7 (11.5-14.5) % Plt Count 282 (130-400) K/uL MPV 10.7 H (7.4-10.4) fL Immature Gran % (Auto) 0.4 % Neut % (Auto) 69.7 % Lymph % (Auto) 18.4 % [place] % (Auto) 9.6 % Eos % (Auto) 1.7 % Baso % (Auto) 0.2 % Neut # (Auto) 9.19 H (1.4-6.5) K/uL Lymph # (Auto) 2.43 (1.2-3.4) K/uL [place] # (Auto) 1.27 H (0.11-0.59) K/uL Eos # (Auto) 0.23 (0-0.5) K/uL Baso # (Auto) 0.03 (0-0.2) K/uL Immature Gran # (Auto) 0.05 H (0.00-0.02) K/uL PT 11.4 (9.0-12.0) Seconds INR 1.1 (0.9-1.1) APTT 24.9 (21.0-31.0) Seconds PTT Ratio 0.9 Sodium (136-145) mmol/L Potassium (3.5-5.1) mmol/L Chloride (98-107) mmol/L Carbon Dioxide (21-32) mmol/L Anion Gap (3-11) BUN (7-18) mg/dl Creatinine (0.6-1.2) mg/dl Est Cr Clr Drug Dosing ml/min Est GFR ( Amer) Est GFR (Non-Af Amer) BUN/Creatinine Ratio (10-20) Glucose (70-99) mg/dl Calcium (8.5-10.1) mg/dl Total Bilirubin (0.2-1) mg/dl AST (15-37) U/L ALT (12-78) U/L Alkaline Phosphatase (45-117) U/L Total Protein (6.4-8.2) gm/dl Albumin (3.4-5.0) gm/dl Globulin (2.5-4.0) gm/dl Albumin/Globulin Ratio (0.9-2) Lipase (73-393) U/L HCG, Qual (Negative) POC Stool Occult Blood (Negative) Blood Type A Positive Antibody Screen NEGATIVE Imaging Data Attestation: I personally reviewed and interpreted this imaging study as follo ws: Blood Pressure Blood Pressure Findings: Normal blood pressure MDM Narrative Prior records/ancillary studies reviewed. Triage Nursing notes reviewed. Additional history obtained from the EMS The patient's history was concerning for possible gastrointestinal bleeding. Differential diagnosis: Etiologies such as diverticulosis, AVM, coagulopathy, colitis, inflammatory bowel disease, malignancy, Marisela-Penn tear, esophagitis, peptic ulcer disease, variceal bleed, gastritis, epistaxis, fissure, hemorrhoids, as well as others were entertained. Physical exam: As above. The patients vital signs were mildly tachycardic. ER treatment provided: An order was placed for continuous cardiac monitoring. The monitor shows a rate of 60-1 10 with a sinus rhythm. Protonix, IV fluids, Pepcid, Zofran On reassessment the patient felt better. Diagnostics interpreted by me: ECG: Ordered for GI bleed EKG: Normal sinus, normal intervals, no acute ST-T wave changes. Impression normal sinus rhythm interpreted by myself I think arrhythmia is unlikely. EKG shows normal sinus rhythm with no interval abnormalities such as QT prolongation or WPW. There are no findings to suggest Brugada syndrome. Cardiac monitoring in the emergency department reveals no tachycardic or bradycardic dysrhythmia. Hypertrophic cardiomyopathy was considered but there are no clear historical elements pointing toward this. EKG is not suggestive. The QRS voltage is not extremely large and there are no suggestive Q waves. The labs revealed mild leukocytosis, stable H&H Imaging studies: CT ABDOMEN & PELVIS With Contrast: Small hiatal hernia and thickening of the distal esophagus Colonic diverticula without diverticulitis Unremarkable appendix. Mild fatty liver. No radiodense gallstones or pancreatitis. No hydronephrosis or perinephric collection. Radiologist: Tyler Vidal M.D. Chest x-ray with no acute consolidation, pneumothorax or free air per my interpretation Consultation: A consultation was placed with Dr. Ledezma, hospitalist. The case was discussed and diagnostics were reviewed. The patient was evaluated in the ER for further treatment. This appears to be consistent with hematemesis. Patient has been vomiting all weekend. This could be related to a Marisela-Penn tear. She was actively vomiting hematemesis here. She was given Protonix and IV fluids. Medicine was consulted. Stable H&H. Hemoccult was negative. She denies any alcohol use. By the evaluation outlined above emergent etiologies such as esophageal perforation, variceal bleed, coagulopathy, epistaxis, malignancy, inflammatory bowel disease, as well as others were deemed relatively unlikely. The pt informed about the findings as listed above. All questions were answered and pleased with the treatment. The chart was completed utilizing [employer] Speech voice recognition software. Grammatical errors, random word insertions, pronoun errors, and incomplete sentences are an occassional consequence of this system due to software limitations, ambient noise, and hardware issues. Any formal questions or concerns about the content, text, or information contained within the body of this dictation should be directly addressed to the physician assistant warehouse manager for clarification. Impression & Plan Hematemesis, Vomiting, Acute epigastric pain Discharge Plan Visit Data Chief Complaint: GI Assessment ED Provider: Sangita Blount ED Midlevel Provider: Ayaka Durham Discharge Problem: Hematemesis, Vomiting, Acute epigastric pain Patient Disposition: Being Evaluated by Hospitalist Condition: Good Forms Stand Alone Forms: [facility] Prescriptions Prescriptions: No Action venlafaxine 37.5 mg Tablet 37.5 mg PO DAILY RF: 0 albuterol sulfate 2.5 mg /3 mL (0.083 %) solution for nebulization 2.5 mg inhalation DAILY PRN (Reason: Shortness Of Breath Or Wheezing) RF: 0 cetirizine [Zyrtec] 10 mg tablet 10 mg PO QAM RF: 0 albuterol sulfate [Ventolin HFA] 90 mcg/actuation HFA aerosol inhaler 1 - 2 puff INHALATION DAILY PRN (Reason: Shortness Of Breath Or Wheezing) RF: 0 Referrals Referrals: Anabel Diehl CRNP [Primary Care Provider] - Discharge Problem: Hematemesis Qualifiers: Nausea presence: with nausea Qualified Code(s): K92.0 - Hematemesis
[2019-11-13 23:53] LABS: Basophils # (auto) 0.03 K/uL (0-0.2); Basophils % (auto) 0.2 %; Eosinophils # (auto) 0.23 K/uL (0-0.5); Eosinophils % (auto) 1.7 %; Hematocrit (blood only) 48.8 % (37-47); Hemoglobin 16.1 g/dL (12.0-16.0); Immature Granulocytes # (auto) 0.05 K/uL (0.00-0.02); Immature Granulocytes % (auto) 0.4 %; Lymphocytes # (auto) 2.43 K/uL (1.2-3.4); Lymphocytes % (auto) 18.4 %; Mean Corpuscular Hemoglobin 29.7 pg (25-34); Mean Platelet Volume 10.7 fL (7.4-10.4); Monocytes # (auto) 1.27 K/uL (0.11-0.59); Monocytes % (auto) 9.6 %; Neutrophils # (auto) 9.19 K/uL (1.4-6.5); Neutrophils % (auto) 69.7 %; Platelet Count 282 K/uL (130-400); RDW Coefficient of Variation 13.7 % (11.5-14.5); RDW Standard Deviation 44.4 fL (36.4-46.3); Red Blood Count 5.42 M/uL (4.2-5.4)
[2019-11-14 00:13] LABS: INR 1.1 (0.9-1.1); Partial Thromboplastin Ratio 0.9; Partial Thromboplastin Time 24.9 Seconds (21.0-31.0); Prothrombin Time 11.4 Seconds (9.0-12.0)
[2019-11-14 00:15] LABS: Albumin Level 4.1 gm/dl (3.4-5.0); BUN Creatinine Ratio 9.3 (10-20); Calcium 10.2 mg/dl (8.5-10.1); Creatinine Clr Calc Pharmacy 76.2 ml/min; Est GFR (African American) 68.5; Est GFR (Non-African American) 59.1; Potassium 3.5 mmol/L (3.5-5.1)
[2019-11-14 00:16] LABS: Pregnancy Test, Serum Negative (Negative)
[2019-11-14 00:18] LABS: Bilirubin,Total 0.4 mg/dl (0.2-1); Total Protein 8.1 gm/dl (6.4-8.2)
[2019-11-14] MEDS ORDERED: IOVERSOL 100ml IV PRN (00:48)
--- NOTE | 2019-11-14 01:16 | History & Physical Report ---
Date of Service November 14, 2019 Assessment & Plan (1) Hematemesis: 43-year-old female with a past medical history of RODNEY, asthma, who was admitted for evaluation of hematemesis. 1. Hematemesis Patient admits to drinking 12 cans of regular Mountain Dew a day for the past 15 years in addition to smoking 20 cigarettes a day since she was 11. This in combination with recent extended antibiotic use for a recurrent breast cyst with doxycycline and azithromycin likely caused some degree of stomach irritation, questionably a Schatzki's ring or esophagitis. Gastroenterology consulted; patient would benefit from an EGD to assess for presence of esophageal abnormalities, AVM, ulcer, or gastritis. H&H ordered every 6hrs; patient's hemoglobin on admission was 16.1. White count on admission was 13.2 likely secondary to stress reaction or margination in the setting of being afebrile however we will continue to monitor. Received a liter normal saline bolus in the emergency department and has maintenance IV normal saline running N.p.o., holding all oral medications IV pantoprazole drip initiated after loading dose given in the ED IV Tylenol for pain control IV Zofran for nausea 2. Nicotine and Caffeine dependence Discussed with patient extensively regarding the importance of nicotine cessation in the context of preventing a repeat hematemesis episode as well as prevention of COPD in the future as her father recently from COPD last fall. States that she is used to smoking and rolls her own cigarettes as it is something that she finds comforting and gives her something to do, and has done it since she was 11. She recognizes that it is bad for her and also recognizes that it would be easier for her to quit smoking than it would be for her to quit drinking her Mountain Dew. Patient is amenable to creating a plan to cut back on her smoking and at the moment is okay with taking a nicotine patch as a first step towards doing so. She is hesitant to use a pill for smoking cessation given that she already has depression and has heard of bad side effects with it regarding worsening depression. - discussed that simply switching from regular to diet mountain dew would make a large change in the amount of daily sugar intake and be a step towards healthier living, even if it does not change her caffeine intake. 3. Depression Continue venlafaxine 37.5 mg daily as per home regimen after EGD tomorrow 4. Allergies Zyrtec 10 mg p.o. a.m. 5. Asthma Albuterol HFA as needed for shortness of breath DVT PPX: contraindicated FEN/GI: NPO, IVNS at 188 ml/HR Code Status: Full Code Dispo: PCU/Tele (2) RODNEY (obstructive sleep apnea): (3) Asthma: (4) Tobacco abuse: (5) Caffeine abuse: (6) Acute epigastric pain: (7) Vomiting: (8) Obesity, Class III, BMI 40-49.9 (morbid obesity): History of Present Illness 43 yo F with PMH depression, asthma, RODNEY who presents to the ED with 4 days of nausea and vomiting and recent hematemesis. States that she started feeling ill on Wednesday 11/08 after having a tomato and mendez sandwich. Proceeded to have multiple bouts of dry heaving and non-bilious non-bloody emesis. Continued to have decreased appetite over the weekend and persisting nausea. By Sunday 11/12, she felt well enough to have some cup noodles and shortly thereafter started vomiting again, this time bringing up bright red blood with brown streaks. Denied any black coffee ground emesis. Denied any BRBPR or hematochezia. Denies diarrhea. Has had fewer bowel movements, attributes to eating less though she normally only eats 1 meal per day. She attests to orthostatic lightheadedness but denies dizziness or unsteadiness otherwise. She describes the epigastric pain as squeezing pressure in the center of her chest/upper abdomen that becomes a sharp stab and then self resolves. Denies any radiation of the pain or any relation to timing of eating. Notable medical and social history includes a prolonged course of doxycycline and azithromycin for a recurring breast cyst for the past 2-3 months and drinking 12 cans of mountain dew a day for the past 15 years, in addition to sm oking 20 cigarettes a day since she was 11. She denies eating a diet heavy in tomato based products or spicy foods. Primary Care Provider: Anabel Diehl Allergies Allergy/AdvReac Type Severity Reaction Status Date / Time Sulfa (Sulfonamide Allergy Severe Verified 06/11/19 16:03 Antibiotics) oxycodone Allergy Intermediate Nausea Verified 06/11/19 16:03 cat dander Allergy Unknown . Verified 06/09/19 17:30 orange Allergy Unknown . Verified 06/09/19 17:30 Home Medications Home Medications Medication Instructions Recorded Confirmed Type albuterol sulfate 2.5 mg INHALATION DAILY PRN 06/09/19 11/13/19 History albuterol sulfate [Ventolin HFA] 1 - 2 puff INHALATION DAILY PRN 06/09/19 11/13/19 History cetirizine [Zyrtec] 10 mg PO QAM 06/09/19 11/13/19 History venlafaxine 37.5 mg PO DAILY 11/14/19 11/14/19 History Past Med/Surg History Surgical History No pertinent past surgical history Social History Preferred Language: Omani Communication Ability: Effective Manager Transition Required: No Beliefs That Will Affect Care: None Current Living Situation: Spouse and Family Other Information That Helps Us Care for You: No Feels Safe at Home: Yes Smoking Status: Current every day smoker Tobacco Type: cigarettes ; Second Hand Exposure: No ; Hx Alcohol Use: No Hx Substance Use: No Review of Systems Constitutional: no fever, no chills, no body aches and no fatigue Respiratory: + cough; no dyspnea Cardiovascular: no chest pain, no dyspnea and no edema Gastrointestinal: + abdominal pain, + belching, + early satiety, + heartburn, + nausea, + vomiting, + hematemesis and + constipation; no coffee ground emesis, no pain with swallowing, no dysphagia, no diarrhea/loose stools, no blood in stools and no melena Genitourinary: no dysuria Neurologic: no gait abnormality, no unsteadiness and no dizziness Physical Exam Physical Exam: Constitutional: obese, in no apparent distress, sitting comfortably in bed. Eyes: EOMI, pupils equal and reactive bilaterally, no scleral icterus Cardiac: RRR, no murmurs, gallops or rubs. Normal S1, S2 Pulm: CTA BL, no wheezes, rhonchi, crackles or rubs, moving air well throughout both lungs Abd: soft, epigastric tenderness, distended, normal bowel sounds, no rebound or guarding Extremities: 2+ peripheral pulses, no edema Neuro: no focal deficits, moving all 4 limbs, A&Ox3 Results & Data Results & Data (MN) Vital Signs (Past 12 Hours) Vital Signs Temp Pulse Pulse Resp BP BP Pulse Ox 11/14/19 01:03 71 20 147/96 H 98 11/14/19 00:20 88 20 173/118 H 99 11/13/19 23:50 99 H 20 172/122 H 99 11/13/19 23:25 98 11/13/19 22:54 36.9 C 99 H 20 137/102 H 97 Laboratory Results WBC 13.20 K/uL (4.8-10.8) H 11/13/19 23:42 RBC 5.42 M/uL (4.2-5.4) H 11/13/19 23:42 Hgb 16.1 g/dL (12.0-16.0) H 11/13/19 23:42 Hct 48.8 % (37-47) H 11/13/19 23:42 MCV 90.0 fL (80-100) 11/13/19 23:42 MCH 29.7 pg (25-34) 11/13/19 23:42 MCHC 33.0 g/dL (32-36) 11/13/19 23:42 RDW Std Deviation 44.4 fL (36.4-46.3) 11/13/19 23:42 RDW Coeff of Gina 13.7 % (11.5-14.5) 11/13/19 23:42 Plt Count 282 K/uL (130-400) 11/13/19 23:42 MPV 10.7 fL (7.4-10.4) H 11/13/19 23:42 Immature Gran % (Auto) 0.4 % 11/13/19 23:42 Neut % (Auto) 69.7 % 11/13/19 23:42 Lymph % (Auto) 18.4 % 11/13/19 23:42 [place] % (Auto) 9.6 % 11/13/19 23:42 Eos % (Auto) 1.7 % 11/13/19 23:42 Baso % (Auto) 0.2 % 11/13/19 23:42 Neut # (Auto) 9.19 K/uL (1.4-6.5) H 11/13/19 23:42 Lymph # (Auto) 2.43 K/uL (1.2-3.4) 11/13/19 23:42 [place] # (Auto) 1.27 K/uL (0.11-0.59) H 11/13/19 23:42 Eos # (Auto) 0.23 K/uL (0-0.5) 11/13/19 23:42 Baso # (Auto) 0.03 K/uL (0-0.2) 11/13/19 23:42 Immature Gran # (Auto) 0.05 K/uL (0.00-0.02) H 11/13/19 23:42 PT 11.4 Seconds (9.0-12.0) 11/13/19 23:42 INR 1.1 (0.9-1.1) 11/13/19 23:42 APTT 24.9 Seconds (21.0-31.0) 11/13/19 23:42 PTT Ratio 0.9 11/13/19 23:42 Sodium 139 mmol/L (136-145) 11/13/19 23:42 Potassium 3.5 mmol/L (3.5-5.1) 11/13/19 23:42 Chloride 105 mmol/L (98-107) 11/13/19 23:42 Carbon Dioxide 28 mmol/L (21-32) 11/13/19 23:42 Anion Gap 6.0 (3-11) 11/13/19 23:42 BUN 11 mg/dl (7-18) 11/13/19 23:42 Creatinine 1.13 mg/dl (0.6-1.2) 11/13/19 23:42 Est Cr Clr Drug Dosing 76.2 ml/min 11/13/19 23:42 Est GFR ( Amer) 68.5 11/13/19 23:42 Est GFR (Non-Af Amer) 59.1 11/13/19 23:42 BUN/Creatinine Ratio 9.3 (10-20) L 11/13/19 23:42 Glucose 100 mg/dl (70-99) H 11/13/19 23:42 Calcium 10.2 mg/dl (8.5-10.1) H 11/13/19 23:42 Total Bilirubin 0.4 mg/dl (0.2-1) 11/13/19 23:42 AST 20 U/L (15-37) 11/13/19 23:42 ALT 56 U/L (12-78) 11/13/19 23:42 Alkaline Phosphatase 85 U/L (45-117) 11/13/19 23:42 Total Protein 8.1 gm/dl (6.4-8.2) 11/13/19 23:42 Albumin 4.1 gm/dl (3.4-5.0) 11/13/19 23:42 Globulin 4.0 gm/dl (2.5-4.0) 11/13/19 23:42 Albumin/Globulin Ratio 1.0 (0.9-2) 11/13/19 23:42 Lipase 78 U/L (73-393) 11/13/19 23:42 HCG, Qual Negative (Negative) 11/13/19 23:42 POC Stool Occult Blood Negative (Negative) 11/13/19 00:06 Blood Type A Positive 11/13/19 23:42 Antibody Screen NEGATIVE 11/13/19 23:42 Supervising Physician Co-Signing Physician Notes Attending addendum: I have physically seen this patient, have supervised the medical residents activities, and agree with the H&P unless as otherwise noted. Assessment and Plan: Hematemesis- Risk factors include: Doxycycline, azithromycin, Mountain Dew, tobacco use, Pepto-Bismol. H&H every 6 hours N.p.o. NSS plus KCl 20 mEq at 125 mils per hour Ceftriaxone 1 g IV daily Acetaminophen 1 g IV every 8 hours PRN mild pain or temperature Zofran 4 mg IV every 6 hours PRN Protonix drip. Was given loading dose in the ED Consult gastroenterology. Nicotine abuse- Cessation counseling Caffeine dependence- Discussed need for decreasing intake of Mountain Dew. Asthma- Albuterol HFA 2 puffs every 4 hours as needed. Remaining orders and notations as noted Resident Activity Tracking Resident Involvement: Resident Care Provided Care Provided: Adult Hospital Medicine (1) Hematemesis Nausea presence: with nausea Qualified Code(s): K92.0 - Hematemesis
[2019-11-14] MEDS ORDERED: NICOTINE 7 MG/24 HR TDSY TD SCH (02:30)
[2019-11-14] MEDS ORDERED: NITROGLYCERIN SL 0.4 MG/TAB TAB SL PRN (03:06)
[2019-11-14] MEDS ORDERED: ALBUTEROL 0.083% NEBU SOLN 3 ML VIAL INH PRN (03:06)
[2019-11-14] MEDS ORDERED: ONDANSETRON INJ 2 MG/ML 2 ML VIAL IV PRN (03:06)
[2019-11-14] MEDS ORDERED: MoRPHine SULFATE 2 MG/ML CARP IV PRN (03:06)
[2019-11-14] MEDS ORDERED: ALBUTEROL HFA 8 GM INHALER INH PRN (03:06)
[2019-11-14] MEDS ORDERED: ACETAMINOPHEN 1000 MG/100 ML IV IV PRN (03:06)
[2019-11-14] MEDS ORDERED: POLYETHYLENE (MIRALAX) 17 GM PACK PO PRN (03:06)
[2019-11-14] MEDS: SODIUM CHLORIDE 0.9% 1000ML 1,000 ML IV SCH ×3 (04:27→19:21)
[2019-11-14] MEDS: PANTOprazole 40 MG in DEXTROSE 5% 100 ML IV SCH ×4 (04:27→21:16)
[2019-11-14 06:18] LABS: Hemoglobin 14.4 g/dL (12.0-16.0); Mean Corpuscular Hemoglobin 29.9 pg (25-34); Mean Corpuscular Hgb Conc 33.5 g/dL (32-36); Mean Corpuscular Volume 89.2 fL (80-100); Mean Platelet Volume 10.6 fL (7.4-10.4); Platelet Count 226 K/uL (130-400); RDW Coefficient of Variation 13.6 % (11.5-14.5); RDW Standard Deviation 44.7 fL (36.4-46.3); Red Blood Count 4.82 M/uL (4.2-5.4); White Blood Count 14.76 K/uL (4.8-10.8)
[2019-11-14 06:19] LABS: Hematocrit (blood only) 42.7 % (37-47); Hemoglobin 14.2 g/dL (12.0-16.0)
--- NOTE | 2019-11-14 06:41 | XRay Report ---
XR chest 1V portable CLINICAL HISTORY: Epigastric pain. COMPARISON STUDY: No previous studies for comparison. FINDINGS: Lung volumes are normal. Lungs are clear. There is no pneumothorax or pleural effusion. Car diac size is normal. Mediastinal contours are normal. There is no evidence for pulmonary edema. IMPRESSION: No acute cardiopulmonary findings. ACT 112: Negative or not required by law. Electronically signed by: Dylan Reyna M.D. 11/14/2019 6:40 AM
--- NOTE | 2019-11-14 06:48 | CT Scan Report ---
CT OF THE ABDOMEN AND PELVIS WITH CONTRAST CLINICAL HISTORY: ugi bleed, pain COMPARISON STUDY: Right upper quadrant ultrasound June 07, 2013. TECHNIQUE: Following IV administration of 90 mL of Optiray-320, axial images of the abdomen and pelvi s were obtained from the lung bases to the proximal femurs. Images were reviewed in the axial, sagitt al, and coronal planes. IV contrast was administered without complication. Automated exposure contro l was utilized for the study. A dose lowering technique was utilized adhering to the principles of A DOMINIQUE. CT DOSE: 1450.95 mGy.cm FINDINGS: Imaged portions of the lower chest demonstrate distal esophageal wall thickening. No pneuma tosis, free air or portal venous gas is present. There is fatty infiltration of the liver. No hepatic lesions are present. The spleen, adrenal glands, kidneys and pancreas are unremarkable. There is no biliary or pancreatic ductal dilatation. There is no peripancreatic or pericholecystic infiltration. No hydronephrosis is present. The appendix is normal. Colonic diverticulosis is noted without evidenc e for acute diverticulitis. Nabothian cysts within the cervix noted. Tiny fat-containing umbilical he rnia is present. There are no suspicious osseous lesions. Major vasculature is patent. IMPRESSION: 1. Distal esophageal wall thickening which may reflect esophagitis. 2. Fatty infiltration of the liver. 3. No acute findings within the abdomen or pelvis. 4. Colonic diverticulosis without evidence for acute diverticulitis. ACT 112: Negative or not required by law. Electronically signed by: Dylan Reyna M.D. 11/14/2019 6:46 AM
[2019-11-14 06:52] LABS: Calcium 9.2 mg/dl (8.5-10.1); Creatinine Clr Calc Pharmacy 87.9 ml/min; Est GFR (African American) 81.3; Est GFR (Non-African American) 70.2; Potassium 4.2 mmol/L (3.5-5.1)
[2019-11-14] MEDS: CETIRIZINE HCL 10 MG TABLET PO SCH (07:42)
[2019-11-14] MEDS: VENLAFAXINE HCL XR 37.5 MG CAPXR PO SCH (07:42)
[2019-11-14] MEDS ORDERED: PNEUMOCOCCAL Polysaccharide Vaccine 25mcg/0.5mL vial/Syr IM ONE (09:15)
[2019-11-14 12:11] LABS: Hematocrit (blood only) 40.6 % (37-47); Hemoglobin 13.2 g/dL (12.0-16.0)
--- NOTE | 2019-11-14 12:42 | Anesthesiology Consultation ---
Date of Service November 14, 2019 Assessment & Plan (1) Encounter for pre-operative examination: Chart Review Chart Review: Acceptable Risk for Surgery History Surgery Operation Date: 11/14/19 17:15 Proposed Procedures p Esophagogastroduodenoscopy Dr Beronica Loco Height/Weight Height: 5 ft 3 in Weight: 111.4 kg Allergies Allergy/AdvReac Type Severity Reaction Status Date / Time Sulfa (Sulfonamide Allergy Severe Verified 06/11/19 16:03 Antibiotics) oxycodone Allergy Intermediate Nausea Verified 06/11/19 16:03 cat dander Allergy Unknown . Verified 06/09/19 17:30 orange Allergy Unknown . Verified 06/09/19 17:30 Medications Home Medications Medication Instructions Recorded Confirmed Last Taken albuterol sulfate 2.5 mg INHALATION DAILY PRN 06/09/19 11/13/19 Unknown albuterol sulfate [Ventolin HFA] 1 - 2 puff INHALATION DAILY PRN 06/09/19 11/13/19 Unknown cetirizine [Zyrtec] 10 mg PO QAM 06/09/19 11/13/19 06/09/19 venlafaxine 37.5 mg PO DAILY 11/14/19 11/14/19 Unknown Active Medications Generic Name Dose Route Start Last Admin Trade Name Freq PRN Reason Stop Dose Admin Acetaminophen 1,000 mg 11/14/19 03:06 11/14/19 11:06 Ofirmev IV 11/17/19 03:05 1,000 mg Q8 PRN Administration Mild Pain Albuterol 1 puffs 11/14/19 03:06 11/14/19 06:48 Ventolin Hfa INH 12/14/19 03:05 1 puffs DAILY PRN Administration Shortness Of Breath Or Wheezing Cetirizine HCl 10 mg 11/14/19 09:00 11/14/19 07:42 Zyrtec PO 12/14/19 08:59 10 mg QAM LIANNA Administration Sodium Chloride 1,000 mls @ 151 mls/hr 11/14/19 03:00 11/14/19 10:59 Nss 1000ml IV 12/14/19 02:59 151 mls/hr .Q6H38M LIANNA Administration Pantoprazole Sodium 40 mg/ 100 mls @ 20 mls/hr 11/14/19 03:15 11/14/19 08:28 Dextrose IV 12/14/19 03:14 8 mg/hr Q5H LIANNA 20 mls/hr Administration 8 MG/HR Ioversol 100 ml 11/14/19 00:48 11/14/19 00:49 Optiray 320 100ml IV 11/18/19 00:47 90 ml ONCE PRN Administration Interaction Checking Nicotine 7 mg 11/14/19 02:30 11/14/19 02:37 Nicoderm Cq TD 12/14/19 02:29 7 mg QAM LIANNA Administration Venlafaxine HCl 37.5 mg 11/14/19 09:00 11/14/19 07:42 Effexor Extended Release PO 12/14/19 08:59 37.5 mg DAILY LIANNA Administration Past Medical History Medical History (Updated 11/14/19 @ 12:42 by Stiven Concepcion MD) Asthma Breast abscess of female (Acute) Obesity, Class III, BMI 40-49.9 (morbid obesity) Past Surgical History Surgical History No pertinent past surgical history Social History Smoking Status: Current every day smoker tobacco type: cigarettes Hx Alcohol Use: No Hx Substance Use: No Physical Exam Vital Signs Last Vital Signs Temp 36.9 C 11/14/19 11:33 Pulse 69 11/14/19 11:33 Resp 18 11/14/19 11:33 BP 126/81 11/14/19 11:33 Pulse Ox 97 11/14/19 11:33 Testing Laboratory Results 11/14/19 11:53 11/14/19 05:56 PT 11.4 Seconds (9.0-12.0) 11/13/19 23:42 INR 1.1 (0.9-1.1) 11/13/19 23:42 APTT 24.9 Seconds (21.0-31.0) 11/13/19 23:42 Blood Type A Positive 11/13/19 23:42 Antibody Screen NEGATIVE 11/13/19 23:42 :
--- NOTE | 2019-11-14 12:49 | Consultation Report ---
DATE OF CONSULTATION: 11/14/2019 GASTROINTESTINAL CONSULTATION NOTE REASON FOR EVALUATION: Hematemesis. HISTORY OF PRESENT ILLNESS: The patient is a 43-year-old who began feeling ill on 11/08 after eating a tomato sandwich. She vomited several times, sometimes with some dark blood. She ended up coming to the hospital last evening and got admitted. Her hemoglobin is 16, probably attributed to by her smoking a pack a day for the last 32 years. She also consumes 12 cans of Mountain Dew a day for the past 15 years. She has been taking doxycycline and erythromycin for a breast abscess. Since being hospitalized, she has been started on pantoprazole and her discomfort has improved. She has not had any more vomiting today. PAST MEDICAL HISTORY: Remarkable for sleep apnea, asthma, tobacco and caffeine use, and morbid obesity. MEDICATIONS: Zyrtec, venlafaxine, albuterol inhaler. ALLERGIES: SULFA, OXYCODONE, CAT DANDER AND ORANGES. PAST SURGICAL HISTORY: Remarkable for tubal ligation. SOCIAL HISTORY: The patient is , lives with her spouse. Smokes a pack a day since age 11. REVIEW OF SYSTEMS: Positive for some epigastric discomfort. Remainder is negative. PHYSICAL EXAMINATION: GENERAL: The patient is overweight, in no acute distress. VITAL SIGNS: Blood pressure is 147/96, pulse 71 and regular, in no distress. ABDOMEN: Shows an umbilical scar from a tubal ligation. There is mild epigastric tenderness to palpation. No mass or hepatosplenomegaly. LABORATORIES: Show hemoglobin of 16.1. IMPRESSION AND PLAN: The patient has been vomiting with some epigastric discomfort. I suspect that she may have some kind of food poisoning and then she may be suffering from a Marisela-Penn tear or gastritis or esophagitis. There is some thickening of the distal esophagus on her CT scan. I plan on continuing the Protonix for now and proceeding with an EGD today for further evaluation.
--- NOTE | 2019-11-14 12:58 | History & Physical Report ---
Date of Service November 14, 2019 History of Present Illness Chief Complaint: Hematemesis Primary Care Provider: Anabel Diehl For EGD Allergies Allergy/AdvReac Type Severity Reaction Status Date / Time Sulfa (Sulfonamide Allergy Severe Verified 06/11/19 16:03 Antibiotics) oxycodone Allergy Intermediate Nausea Verified 06/11/19 16:03 cat dander Allergy Unknown . Verified 06/09/19 17:30 orange Allergy Unknown . 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9 C 69 18 126/81 97 11/14/19 07:51 36.8 C 80 18 141/92 H 94 11/14/19 06:51 72 20 98 11/14/19 03:58 36.8 C 78 16 163/103 H 94 11/14/19 03:07 36.7 C 69 163/111 H 97 11/14/19 02:41 95 H 20 123/79 99 07/01/20 01:58 83 20 131/92 98 11/14/19 01:03 71 20 147/96 H 98 Code Status & VTE Plan VTE Prophylaxis Plan VTE Prophylaxis will be ordered: No
[2019-11-14] MEDS ORDERED: PROPOFOL IV EMULSION 10 MG/ML 20 ML VIAL IV ONE (13:01)
[2019-11-14] MEDS ORDERED: fentaNYL citrate 100 MCG/2 ML VIAL ONE (13:01)
[2019-11-14] MEDS ORDERED: MIDAZOLAM HCL 1 MG/ML 2ML VIAL ONE (13:01)
[2019-11-14] MEDS ORDERED: LIDOCAINE HCL 2% 2 ML VIAL/AMP(20MG/ML) INFIL ONE (13:01)
[2019-11-14] MEDS ORDERED: ONDANSETRON INJ 2 MG/ML 2 ML VIAL ONE (13:25)
--- NOTE | 2019-11-14 13:35 | GI REPORT ---
Patient Name: Verenice Hayes Procedure Date: 11/14/2019 1:13 PM Date of : 1975 Admit Type: Inpatient Age: 43 Gender: Female Attending MD: Cedrick Loco MD Procedure: Upper GI endoscopy Providers: Cedrick Loco MD Referring MD: Mina Marinelli M.d. Indications: Hematemesis Medicines: Fentanyl 100 micrograms IV, Midazolam 2 mg IV, Propofol total dose 80 mg IV, Lidocaine 40 mg IV Complications: No immediate complications. Estimated Blood Loss: Estimated blood loss: none. Procedure: Pre-Anesthesia Assessment: - Prior to the procedure, a History and Physical was performed, and patient medications, allergies and sensitivities were reviewed. The patient's tolerance of previous anesthesia was reviewed. - The risks and benefits of the procedure and the sedation options and risks were discussed with the patient. All questions were answered and informed consent was obtained. After obtaining informed consent, the endoscope was passed under direct vision. Throughout the procedure, the patient's blood pressure, pulse, and oxygen saturations were monitored continuously. The Endoscope was introduced through the mouth, and advanced to the second part of duodenum. The upper GI endoscopy was accomplished without difficulty. The patient tolerated the procedure well. Findings: The Z-line was regular and was found 40 cm from the incisors. LA Grade D (one or more mucosal breaks involving at least 75% of esophageal circumference) esophagitis with no bleeding was found. The entire examined stomach was normal. The examined duodenum was normal. Impression: - Z-line regular, 40 cm from the incisors. - LA Grade D reflux esophagitis. - Normal stomach. - Normal examined duodenum. - No specimens collected. Recommendation: - [facility]. - Full liquid diet today. Cedrick Loco M.D. Cedrick Loco MD 11/14/2019 1:34:17 PM This report has been signed electronically. Note Initiated On: 11/14/2019 1:13 PM Number of Addenda: 0 I attest to the content of the Intraoperative Record and orders documented therein, exceptions below {[id number]}
--- NOTE | 2019-11-14 13:42 | Progress Notes ---
DATE: 11/14/2019 The patient underwent an EGD today for hematemesis and epigastric discomfort. The patient tolerated the procedure well. She was found to have grade 4 distal esophagitis, probably from her vomiting and regurgitation. The stomach and duodenum were normal. IMPRESSION: The patient has esophagitis. We will place her on a bland full liquid diet and continue her acid suppression medication.
--- NOTE | 2019-11-14 14:12 | Anesthesiology Progress Note ---
Date of Service November 14, 2019 Anesthesia Post Procedure Vital Signs Vital Signs: Temp Pulse Pulse Resp BP BP Pulse Ox 11/14/19 13:54 69 18 120/73 93 11/14/19 13:39 75 18 118/67 97 11/14/19 13:26 79 18 110/66 99 11/14/19 13:00 71 18 135/94 97 11/14/19 11:33 36.9 C 69 18 126/81 97 11/14/19 07:51 36.8 C 80 18 141/92 H 94 11/14/19 06:51 72 20 98 11/14/19 03:58 36.8 C 78 16 163/103 H 94 11/14/19 03:07 36.7 C 69 163/111 H 97 11/14/19 02:41 95 H 20 123/79 99 11/14/19 01:58 83 20 131/92 98 11/14/19 01:03 71 20 147/96 H 98 11/14/19 00:20 88 20 173/118 H 99 11/13/19 23:50 99 H 20 172/122 H 99 11/13/19 23:25 98 11/13/19 22:54 36.9 C 99 H 20 137/102 H 97 Pain Intensity Abdomen: Pain Intensity: 2 Transfer of Care Handoff Completed per policy Notes Mental Status: alert / awake / arousable Patient Amnestic to Procedure: Yes Nausea / Vomiting: adequately controlled Pain: adequately controlled Airway Patency, RR, SpO2: stable & adequate BP & HR: stable & adequate Hydration State: stable & adequate Anesthetic Complications: no major complications apparent
--- NOTE | 2019-11-14 14:53 | Electrocardiogram Report ---
Test Reason : Blood Pressure : / mmHG Vent. Rate : 086 BPM Atrial Rate : 086 BPM P-R Int : 164 ms QRS Dur : 080 ms QT Int : 362 ms P-R-T Axes : 045 036 051 degrees QTc Int : 433 ms Normal sinus rhythm with sinus arrhythmia Normal ECG No previous ECGs available Confirmed by Tripp Sharma ([id number]) on 11/14/2019 2:52:48 PM Referred By: REFERRED SELF Confirmed By:Tripp Sharma
[2019-11-14] MEDS: NICOTINE 14 MG/24 HR PATCH TD SCH (23:09)
--- NOTE | 2019-11-14 23:52 | Billing Data ---
Date of Service November 14, 2019 Coding Level of Care Code 30501 Initial Inpt Care Lvl 3
[2019-11-15] MEDS: SODIUM CHLORIDE 0.9% 1000ML 1,000 ML IV SCH ×3 (01:59→12:20)
[2019-11-15] MEDS: PANTOprazole 40 MG in DEXTROSE 5% 100 ML IV SCH ×3 (02:53→12:20)
[2019-11-15] MEDS: NICOTINE 14 MG/24 HR PATCH TD SCH (08:19)
[2019-11-15] MEDS: VENLAFAXINE HCL XR 37.5 MG CAPXR PO SCH (08:20)
[2019-11-15] MEDS: CETIRIZINE HCL 10 MG TABLET PO SCH (08:20)
--- NOTE | 2019-11-22 13:20 | Discharge Summary ---
Date of Service November 15, 2019 Admission HPI Per Admitting Provider For EGD Principal Diagnosis hematemesis Discharge Exam Constitutional: obese, in no apparent distress, sitting comfortably in bed. Eyes: EOMI, pupils equal and reactive bilaterally, no scleral icterus Cardiac: RRR, no murmurs, gallops or rubs. Normal S1, S2 Pulm: CTA BL, no wheezes, rhonchi, crackles or rubs, moving air well throughout both lungs Abd: soft, no longer having epigastric tenderness, distended, normal bowel sounds, no rebound or guarding Extremities: 2+ peripheral pulses, no edema Neuro: no focal deficits, moving all 4 limbs, A&Ox3 Discharge Data Allergies Allergy/AdvReac Type Severity Reaction Status Date / Time Sulfa (Sulfonamide Allergy Severe Verified 06/11/19 16:03 Antibiotics) oxycodone Allergy Intermediate Nausea Verified 06/11/19 16:03 cat dander Allergy Unknown . Verified 06/09/19 17:30 orange Allergy Unknown . Verified 06/09/19 17:30 Consultations 11/14/19 01:15 ED Decision to Admit Stat 11/14/19 03:06 Consult Gastroenterology Routine Procedures Performed Operation Date: 11/14/19 17:15 Actual Procedures p Esophagogastroduodenoscopy - Cedrick Loco Ordered Studies 11/13/19 23:06 CT abd pelvis IV con only Urgent Hospital Course (1) Hematemesis: 43-year-old female with a past medical history of RODNEY, asthma, who was admitted for evaluation of hematemesis. 1. Hematemesis On admission: Patient admits to drinking 12 cans of regular Mountain Dew a day for the past 15 years in addition to smoking 20 cigarettes a day since she was 11. This in combination with recent extended antibiotic use for a recurrent breast cyst with doxycycline and azithromycin likely caused some degree of stomach irritation, questionably a Schatzki's ring or esophagitis. Gastroenterology consulted; patient would benefit from an EGD to assess for presence of esophageal abnormalities, AVM, ulcer, or gastritis. H&H ordered every 6hrs; patient's hemoglobin on admission was 16.1. White count on admission was 13.2 likely secondary to stress reaction or margination in the setting of being afebrile however we will continue to monitor. Received a liter normal saline bolus in the emergency department and has maintenance IV normal saline running N.p.o., holding all oral medications IV pantoprazole drip initiated after loading dose given in the ED IV Tylenol for pain control IV Zofran for nausea On day of discharge: The patient had underwent an EGD for hematemesis and epigastric discomfort. The patient tolerated the procedure well. She was found to have grade 4 distal esophagitis, probably from her vomiting and regurgitation. The stomach and duodenum were normal. IMPRESSION: The patient has esophagitis. We will place her on a bland full liquid diet and continue her acid suppression medication. Patient improved and was clear for discharge. 2. Nicotine and Caffeine dependence Discussed with patient extensively regarding the importance of nicotine cessation in the context of preventing a repeat hematemesis episode as well as prevention of COPD in the future as her father recently from COPD last fall. States that she is used to smoking and rolls her own cigarettes as it is something that she finds comforting and gives her something to do, and has done it since she was 11. She recognizes that it is bad for her and also recognizes that it would be easier for her to quit smoking than it would be for her to quit drinking her Mountain Dew. Patient is amenable to creating a plan to cut back on her smoking and at the moment is okay with taking a nicotine patch as a first step towards doing so. She is hesitant to use a pill for smoking cessation given that she already has depression and has heard of bad side effects with it regarding worsening depression. - discussed that simply switching from regular to diet mountain dew would make a large change in the amount of daily sugar intake and be a step towards healthier living, even if it does not change her caffeine intake. 3. Depression Continue venlafaxine 37.5 mg daily as per home regimen after EGD tomorrow 4. Allergies Zyrtec 10 mg p.o. a.m. 5. Asthma Albuterol HFA as needed for shortness of breath (2) RODNEY (obstructive sleep apnea): (3) Asthma: (4) Tobacco abuse: (5) Caffeine abuse: (6) Acute epigastric pain: (7) Vomiting: (8) Obesity, Class III, BMI 40-49.9 (morbid obesity): Total Time Total Time Spent Total Time Spent (In Minutes): 32 Total Time Includes: Examination of the Patient, Discharge Planning and Med ication Reconciliation Discharge Plan Discharge Items Patient Disposition: Home - Self-Care Reason For Visit: BLOODY VOMIT Discharge Diagnosis: severe esophagitis Condition on Discharge: Good Activity: Resume your previous activity Non-emergency contact: Primary Care Provider Call non-emergency contact if: you have any medication questions Follow-up/Referrals: Anabel Diehl CRNP [Primary Care Provider] - 11/21/19 10:00 am (F/U APT WILL BE ON DEC 31, 2019 AT 09:00AM) Diet: Regular Diet Texture: Dental soft (bite-sized) Diet Comment: Addtl Attending Provider Instructions: You have been hospitalized for an acute medical problem. During your stay at [facility], we have made an effort to correct the problem that brought you to the hospital while keeping you as comfortable as possible. Medications were used to bring your condition under control and your discharge instructions will include directions for any medications you should take after leaving the hospital. Please make sure you see your Primary Care Provider as part of your follow up plan. In regards to your Pantoprazole, to get the best effect of your medication, you should take it on an empty stomach half an hour to an hour before eating. Followup with PCP in 1-2 weeks. Followup with GI in 4-6 weeks. Addtl Legal Stenographer Provider Instructions: Soft diet tips.Take small bites of food and chew foods well. Avoid tough meats, fresh doughy bread or rolls, hard bread crust, and abrasive foods. Sip fluids when taking solids at meals and snacks to moisten foods. Stop eating when you start to feel full. Eat slowly in a relaxed atmosphere. Choose decaffeinated coffee, tea, or caffeine-free soft drinks. Sit upright when eating. Remain in a sitting position for at least 45-60 minutes after eating. Try to avoid eating for 3 hours before bedtime. Eat small, frequent meals and snacks. The following lifestyle changes are often recommended: Losing weight (if you are overweight) Losing weight may help people who are overweight to reduce acid reflux. In addition, weight loss has a number of other health benefits, including a decreased risk of type 2 diabetes and heart disease. (See "Patient education: Losing weight (Beyond the Basics)".) Raising the head of your bed six to eight inches Although most people only h ave heartburn during the two- to three-hour period after meals, some wake up at night with heartburn. People with nighttime heartburn can elevate the head of their bed, which raises the head and shoulders higher than the stomach, allowing gravity to prevent acid from refluxing. You can raise the head of your bed by putting blocks of wood under the legs or a foam wedge under the mattress. Several companies have developed commercial products for this purpose. However, it is not helpful to use additional pillows; this can cause an unnatural bend in the body that increases pressure on the stomach, which can worsen acid reflux. Avoiding foods that trigger symptoms Some foods also cause relaxation of the lower esophageal sphincter, which can lead to acid reflux. Excessive caffeine, chocolate, alcohol, peppermint, and fatty foods may cause bothersome acid reflux in some people. If you notice that your symptoms are worse after you have certain foods or beverages, it's reasonable to limit or avoid these things. Quitting smoking Saliva helps to neutralize refluxed acid, and smoking reduces the amount of saliva in the mouth and throat. Smoking also lowers the pressure in the lower esophageal sphincter and provokes coughing, causing frequent episodes of acid reflux in the esophagus. In addition to having many other health benefits, quitting smoking can reduce or eliminate symptoms of mild reflux. (See "Patient education: Quitting smoking (Beyond the Basics)".) While evidence is limited, other changes also sometimes seem to help, such as: Avoiding late meals Lying down with a full stomach may increase the risk of acid reflux. By planning meals for at least two to three hours before bedtime, symptoms may be reduced. Wearing loose, comfortable clothing At minimum, tight-fitting clothing can increase discomfort, but it may also increase pressure in the abdomen, forcing stomach contents into the esophagus Pending Studies at Discharge: No Stand-Alone Forms: My [facility], Smoking Cessation Medications and DC Order Prescriptions: New pantoprazole 40 mg tablet,delayed release (DR/EC) 40 mg PO DAILY 56 Days Qty: 56 RF: 0 Continued venlafaxine 37.5 mg capsule,extended release 24hr 37.5 mg PO DAILY RF: 0 albuterol sulfate 2.5 mg /3 mL (0.083 %) solution for nebulization 2.5 mg inhalation DAILY PRN (Reason: Shortness Of Breath Or Wheezing) RF: 0 cetirizine [Zyrtec] 10 mg tablet 10 mg PO QAM RF: 0 albuterol sulfate [Ventolin HFA] 90 mcg/actuation HFA aerosol inhaler 1 - 2 puff INHALATION DAILY PRN (Reason: Shortness Of Breath Or Wheezing) RF: 0 Discharge Orders: Discharge Order (Routine); Ordered 11/15/19 Ordered By: Mina Hill/Other Patient Handouts: Esophagitis, Soft Diet Ch Dc Admission Data Admit Date/Time: 11/14/19 02:25 Attending Provider: Mina Marinelli Admit Provider: Kirstie Swanson Primary Care Provider: Anabel Diehl Other Providers: Jose G England ; Cedrick Loco Other Interventions: Discharge Summary Assessment (RN) Last Done: 11/15/19 11:30 DC Date/Time DO NOT enter until pt leaves facility: 11/15/19 12:50 Coding Level of Care Code D/C Day Management >30 mins Diagnoses Hematemesis K92.0 Nausea presence: with nausea RODNEY (obstructive sleep apnea) G47.33 Asthma J45.909 Tobacco abuse Z72.0 Caffeine abuse F15.10 Acute epigastric pain R10.13 Vomiting R11.10 Obesity, Class III, BMI 40-49.9 (morbid obesity) E66.01 Time Spent (min) 32
== END 2019-11-15 12:50 | disposition home or self-care (01) ==
LOC: ED 22:46 → 2S 22:46 → SUATTDRO 11-14 02:25 → 2S 11-14 02:46

== ENCOUNTER 2022-02-04 18:26 | Inpatient (IN) ==
[2022-02-04] MEDS ORDERED: ACETAMINOPHEN 325 MG TAB PO STA (18:47)
[2022-02-04] MEDS ORDERED: VANCOMYCIN HCL 2,250 MG in SODIUM CHLORIDE 0.9% 500 ML IV ONE (18:48)
[2022-02-04] MEDS ORDERED: VANCOMYCIN CONSULT ACTIVE PRN (18:48)
[2022-02-04] MEDS ORDERED: cefTRIAXone SODIUM 2,000 MG/70 ML BAG IV STA (18:48)
[2022-02-04] MEDS ORDERED: SODIUM CHLORIDE 0.9% 1000ML 2,000 ML IV ONE (18:51)
--- NOTE | 2022-02-04 18:55 | Emergency Department Note ---
Impression & Plan Sepsis, Febrile, Leukocytosis, Abscess ED Provider Note NAME: APOLONIA FARFAN AGE: 46 SEX: F : 1975 ARRIVES VIA: Ambulance INFORMANT: Patient ED PROVIDER(S): Stephen Diaz DO CHIEF COMPLAINT: Right thigh pain HPI: Patient is a 46-year-old female who presents to the ER for right groin pain. She was seen and evaluated and had an I&D performed on her right thigh. She notes that she believes this has been there for about 2 weeks. She was placed on antibiotics as an outpatient and continue to get worse. She came in and had an I&D performed today and went home. While in the drive home she had persistent shaking and could not stop. She was found to be febrile called EMS and brought her in. Pain is about a 2-3 out of 10. Denies any headache or change in vision. No chest pain or shortness of breath. No nausea, vomiting, or diarrhea. No dysuria, urgency, or frequency. No other exacerbating or remitting factors. ROS: See above HPI for pertinent positives & negatives. A total of 10 systems reviewed and were otherwise negative. PAST MEDICAL HISTORY:See Below PAST SURGICAL HISTORY:See Below FAMILY HISTORY:See Below SOCIAL HISTORY:See Below HOME MEDICATIONS:See Below ALLERGIES:See Below VITALS:See Below PHYSICAL EXAMINATION: GENERAL: Sitting up in bed, alert, ill-appearing, disheveled EYE EXAM: normal conjunctiva. OROPHARYNX: mucous membranes are moist NECK: supple, no nuchal rigidity, no adenopathy, non-tender LUNGS: Clear to auscultation. Normal chest wall mechanics HEART: no murmurs, S1 normal and S2 normal ABDOMEN: abdomen soft, non-tender, normo-active bowel sounds, no masses, no rebound or guarding. SKIN: Dry erythema induration and swelling with packing in place UPPER EXTREMITIES: upper extremities are grossly normal. LOWER EXTREMITIES: No pitting edema. NEURO EXAM: Normal sensorium, cranial nerves II-XII grossly intact, normal speech, no gross weakness of arms, no gross weakness of legs. MEDICAL DECISION MAKING: Patient is a 46-year-old female who presents ER for above-stated complaint. IV was established blood work was obtained. Patient was seen here earlier today and had an I&D performed and return for having shaking chills at home which was uncontrollable as well as a fever. Labs show leukocytosis of 16,000. No anemia. BMP along with LFTs bilirubin was unremarkable. COVID was negative. Patient was febrile and tachycardic. She was given IV vancomycin and Rocephin updated at bedside and discussed with the hospitalist Dr. Manuel Hurd for further evaluation. Triage Nursing notes reviewed. Limited review of prior medical records performed Vital Signs: reviewed and remarkable for tachy and febrile Differential diagnosis: Sepsis, UTI, pneumonia, metabolic, electrolyte abnormalities, cardiac sources, intracerebral event, toxicologic, neurologic, as well as other pathologies. ER treatment provided: See below Diagnostics interpreted by me: ECG: none Cardiac Monitoring: An order was placed for continuous cardiac monitoring. The monitor shows a rate of 101 with sinus rhythm. Laboratory studies: As stated above and show below. Imaging studies: See below Consultation(s): Discussed with the hospitalist for further evaluation Procedures: none Critical Care: None Past Med/Surg History Medical History (Updated 02/05/22 @ 00:55 by Stephen Diaz DO) Asthma Breast abscess of female Obesity, Class III, BMI 40-49.9 (morbid obesity) Surgical History No pertinent past surgical history Social History Smoking Status: Current every day smoker Tobacco Type: Cigarettes Cigarettes Per Day: 30 cigarettes (1 1/2 pack) per day; Second Hand Exposure: No; Hx Alcohol Use: Yes Alcohol type: hard liquor Hx Substance Use: No Preferred Language: Kazakh Communication Ability: Effective Mammography Tech Required: No Beliefs That Will Affect Care: None Current Living Situation: Spouse Feels Safe at Home: Yes Assistive Devices: CPAP and Glasses Allergies Allergies Allergy/AdvReac Type Severity Reaction Status Date / Time Sulfa (Sulfonamide Allergy Severe Verified 01/15/22 12:29 Antibiotics) oxycodone Allergy Intermediate Nausea Verified 01/15/22 12:29 cat dander Allergy Unknown . Verified 01/15/22 12:29 orange Allergy Unknown . Verified 01/15/22 12:29 Home Meds Home Medications Medication Instructions Recorded Confirmed albuterol sulfate 2.5 mg/3 mL 2.5 mg inhalation DAILY PRN 06/09/19 01/15/22 (0.083 %) solution for nebulization Shortness Of Breath Or Wheezing albuterol sulfate 90 mcg/actuation 1 - 2 puff inhalation DAILY PRN 06/09/19 01/15/22 aerosol inhaler (Ventolin HFA) Shortness Of Breath Or Wheezing cetirizine 10 mg tablet (Zyrtec) 10 mg PO QAM 06/09/19 01/15/22 venlafaxine 37.5 mg 37.5 mg PO DAILY 11/14/19 11/14/19 capsule,extended release 24 hr CPAP Machine 01/15/22 01/15/22 azithromycin 200 mg/5 mL oral 200 mg PO DAILY 01/15/22 01/15/22 suspension cephalexin 500 mg tablet 500 mg PO BID 01/15/22 01/15/22 prednisone 20 mg tablet 20 mg PO BID 01/15/22 01/15/22 Previous Rx's Medication Instructions Recorded Magic Mouthwash 300 mL mouthwash 5 ml mucous membrane Q4H PRN 01/27/22 pharyngitis #300 mL cephalexin 500 mg capsule 500 mg PO QID 7 days #28 caps 02/04/22 doxycycline hyclate 100 mg tablet 100 mg PO BID 7 days #14 tabs 02/04/22 Results & Data (ED) Vital Signs Vital Signs - 24 hr 02/04/22 18:32 02/04/22 18:32 02/04/22 18:47 Temperature 38.5 C H Temperature Source Oral Pulse Rate 112 H 100 H Pulse Rate [Apical] 110 H Pulse Rate from SpO2 Sensor Pulse Rhythm Regular Regular Pulse Rhythm [Apical] Regular Pulse Strength Normal Pulse Strength [Apical] Normal Respiratory Rate 19 22 20 Respiratory Effort / Characteristics Non-Labored Non-Labored Respiratory Depth Normal Normal Respiratory Pattern Regular Regular Blood Pressure 155/98 H Blood Pressure [Right Arm] 155/98 H Blood Pressure Mean 117 Blood Pressure Mean [Right Arm] 117 Blood Pressure Position [Right Arm] Lying Pulse Oximetry 96 97 97 Oxygen Delivery Method Room Air Room Air Room Air Sepsis Recent Fever Within 48 Hours Yes Sepsis New/Unexplained Change in Mental Status No Sepsis Action Taken by Nursing Physician Notified 02/04/22 18:34 02/04/22 19:00 02/04/22 19:30 Temperature Temperature Source Pulse Rate 108 H 116 H 118 H Pulse Rate [Apical] Pulse Rate from SpO2 Sensor 107 H 115 H Pulse Rhythm Pulse Rhythm [Apical] Pulse Strength Pulse Strength [Apical] Respiratory Rate 20 19 15 Respiratory Effort / Characteristics Respiratory Depth Respiratory Pattern Blood Pressure Blood Pressure [Right Arm] Blood Pressure Mean Blood Pressure Mean [Right Arm] Blood Pressure Position [Right Arm] Pulse Oximetry 95 97 Oxygen Delivery Method Sepsis Recent Fever Within 48 Hours Sepsis New/Unexplained Change in Mental Status Sepsis Action Taken by Nursing 02/04/22 20:00 Temperature Temperature Source Pulse Rate 108 H Pulse Rate [Apical] Pulse Rate from SpO2 Sensor Pulse Rhythm Pulse Rhythm [Apical] Pulse Strength Pulse Strength [Apical] Respiratory Rate 27 H Respiratory Effort / Characteristics Respiratory Depth Respiratory Pattern Blood Pressure 155/89 H Blood Pressure [Right Arm] Blood Pressure Mean 111 Blood Pressure Mean [Right Arm] Blood Pressure Position [Right Arm] Pulse Oximetry Oxygen Delivery Method Sepsis Recent Fever Within 48 Hours Sepsis New/Unexplained Change in Mental Status Sepsis Action Taken by Nursing Laboratory Data Result diagrams: 02/04/22 18:55 02/04/22 18:55 Lab Results 02/04/22 02/04/22 02/04/22 Range/Units 18:55 18:55 19:29 WBC 16.40 H (4.8-10.8) K/ul RBC 5.15 (3.93-5.22) M/uL Hgb 15.5 (12.0-16.0) g/dl Hct 45.8 H (34.1-44.9) % MCV 88.9 (80.0-100.0) fL MCH 30.1 (25.0-34.0) pg MCHC 33.8 (32.0-36.0) g/dL RDW Std Deviation 44.2 (36.4-46.3) fL RDW Coeff of Gina 13.5 (11.5-14.5) % Plt Count 257 (130-400) K/uL MPV 9.6 (9.4-12.3) fL Immature Gran % (Auto) 1.0 % Neut % (Auto) 84.3 % Lymph % (Auto) 7.8 % [place] % (Auto) 3.7 % Eos % (Auto) 2.7 % Baso % (Auto) 0.5 % Neut # (Auto) 13.81 H (1.4-6.5) K/uL Lymph # (Auto) 1.28 (1.2-3.4) K/uL [place] # (Auto) 0.60 (0.24-0.82) K/uL Eos # (Auto) 0.45 (0-0.50) K/uL Baso # (Auto) 0.09 (0-0.2) K/uL Immature Gran # (Auto) 0.17 H (0.00-0.02) K/uL Sodium 137 (136-145) mmol/L Potassium 3.8 (3.5-5.1) mmol/L Chloride 101 (98-107) mmol/L Carbon Dioxide 28 (21-32) mmol/L Anion Gap 8 (3-11) BUN 10 (6-23) mg/dl Creatinine 0.94 (0.6-1.2) mg/dl Est Cr Clr Drug Dosing 88.6 ml/min Est GFR ( Amer) 83.7 ml/min Est GFR (Non-Af Amer) 72.2 ml/min BUN/Creatinine Ratio 10.6 (10-20) Glucose 99 (70-99(Fasting)) mg/dl Calcium 9.0 (8.5-10.1) mg/dl Total Bilirubin 0.6 (0.2-1.0) mg/dl AST 13 (13-39) U/L ALT 29 (7-52) U/L Alkaline Phosphatase 71 (34-104) U/L Total Protein 6.7 (6.0-8.3) gm/dl Albumin 3.8 (3.4-5.0) gm/dl Globulin 2.9 (2.5-4.0) gm/dl Albumin/Globulin Ratio 1.3 (0.9-2) SARS-CoV-2, RNA, NAAT NEGATIVE (NEGATIVE) Administered Medications Acetaminophen (Acetaminophen 325 Mg Tab) 650 mg PO Q4H PRN PRN Reason: pain/fever Stop: 03/06/22 21:42 Last Admin: 02/04/22 23:17 Dose: 650 mg Documented By: NICOLE Morphine Sulfate (Morphine Sulfate 2 Mg/Ml Carp) 2 mg IV Q4H PRN PRN Reason: Severe Pain Stop: 02/18/22 21:42 Last Admin: 02/04/22 23:54 Dose: 2 mg Documented By: NICOLE Discontinued Medications Acetaminophen (Acetaminophen 325 Mg Tab) 650 mg PO NOW STA Stop: 02/04/22 18:48 Last Admin: 02/04/22 19:27 Dose: 650 mg Documented By: FREDY Ceftriaxone Sodium (Rocephin) 2,000 mg in 70 mls @ 140 mls/hr IV NOW STA Stop: 02/04/22 19:17 Last Infusion: 02/04/22 19:56 Dose: 0 mls/hr Documented By: Admin: 02/04/22 19:26 Dose: 140 mls/hr Documented By: FREDY Vancomycin HCl 2,250 mg/ (Sodium Chloride) 545 mls @ 200 mls/hr IV NOW ONE Stop: 02/04/22 21:31 Last Infusion: 02/04/22 23:31 Dose: 0 mls/hr Documented By: Admin: 02/04/22 19:50 Dose: 200 mls/hr Documented By: FREDY Sodium Chloride (Nss 1000ml) 2,000 mls @ 999 mls/hr IV .Q2H1M ONE Stop: 02/04/22 20:51 Last Infusion: 02/04/22 22:13 Dose: 0 mls/hr Documented By: Admin: 02/04/22 19:26 Dose: 999 mls/hr Documented By: FREDY Morphine Sulfate (Morphine Sulfate 4 Mg/Ml 1 Ml Carp\Vial) 4 mg IV NOW STA Stop: 02/04/22 20:26 Last Admin: 02/04/22 20:33 Dose: 4 mg Documented By: FREDY Discharge Plan Visit Data Chief Complaint: Illness Stated Complaint: ILLNESS ED Provider: Stephen Diaz Discharge Problem: Sepsis, Febrile, Leukocytosis, Abscess Patient Disposition: Admitted As Inpatient Discharge Instructions Interventions: ED Discharge Assessment Last Done: 02/04/22 21:36
[2022-02-04 19:07] LABS: Basophils # (auto) 0.09 K/uL (0-0.2); Basophils % (auto) 0.5 %; Eosinophils # (auto) 0.45 K/uL (0-0.50); Eosinophils % (auto) 2.7 %; Hematocrit (blood only) 45.8 % (34.1-44.9); Hemoglobin 15.5 g/dl (12.0-16.0); Immature Granulocytes # (auto) 0.17 K/uL (0.00-0.02); Lymphocytes # (auto) 1.28 K/uL (1.2-3.4); Lymphocytes % (auto) 7.8 %; Mean Corpuscular Hemoglobin 30.1 pg (25.0-34.0); Mean Corpuscular Hgb Conc 33.8 g/dL (32.0-36.0); Mean Corpuscular Volume 88.9 fL (80.0-100.0); Mean Platelet Volume 9.6 fL (9.4-12.3); Monocytes % (auto) 3.7 %; Neutrophils # (auto) 13.81 K/uL (1.4-6.5); Neutrophils % (auto) 84.3 %; Platelet Count 257 K/uL (130-400); RDW Coefficient of Variation 13.5 % (11.5-14.5); RDW Standard Deviation 44.2 fL (36.4-46.3); Red Blood Count 5.15 M/uL (3.93-5.22)
[2022-02-04 19:41] LABS: Albumin Globulin Ratio 1.3 (0.9-2); Albumin Level 3.8 gm/dl (3.4-5.0); BUN Creatinine Ratio 10.6 (10-20); Bilirubin,Total 0.6 mg/dl (0.2-1.0); Creatinine Clr Calc Pharmacy 88.6 ml/min; Est GFR (African American) 83.7 ml/min; Est GFR (Non-African American) 72.2 ml/min; Globulin 2.9 gm/dl (2.5-4.0); Potassium 3.8 mmol/L (3.5-5.1); Total Protein 6.7 gm/dl (6.0-8.3)
--- NOTE | 2022-02-04 20:21 | History & Physical Report ---
Date of Service February 04, 2022 Assessment & Plan (1) Abscess of skin AND/OR subcutaneous tissue: Plan: Right thigh abscess, drained in ER, now with packing. - Follow wound and blood cultures - Continue vancomycin started in ER (This has great Staph & Strep coverage, so do not see need to continue ceftriaxone.) - cloth bleaching range tender consulted for packing/teaching for patient on discharge (2) Asthma: Plan: No wheezing or shortness of breath today. - Albuterol PRN (3) Exertional dyspnea: Plan: Seen by [facility] cardiology. Plan for future stress test. - No inpatient needs (4) RODNEY (obstructive sleep apnea): Plan: - Ordered hospital CPAP; uses 2-3 cmH20 at home. (5) Obesity, Class III, BMI 40-49.9 (morbid obesity): Plan: Noted. Likely a factor in her recurrent abscesses. (6) DVT prophylaxis: Plan: Low risk - Early ambulation History of Present Illness Primary Care Provider: Anabel Diehl 46yo F w/ hx of obesity and prior skin abscesses who presents with right thigh abscess. Patient reports that she had small pimple/boil about 4 days ago, but has rapidly progressed. She was seen in the ER earlier today and had an I&D performed and was discharged on oral abx. However, when she went home in her car, she had rigors, fever, and decided to come back to the hospital. Allergies Allergy/AdvReac Type Severity Reaction Status Date / Time Sulfa (Sulfonamide Allergy Severe Verified 01/15/22 12:29 Antibiotics) oxycodone Allergy Intermediate Nausea Verified 01/15/22 12:29 cat dander Allergy Unknown . Verified 01/15/22 12:29 orange Allergy Unknown . Verified 01/15/22 12:29 Home Medications Medication Instructions Recorded Confirmed Type albuterol sulfate 2.5 mg/3 mL 2.5 mg inhalation DAILY PRN 06/09/19 01/15/22 History (0.083 %) solution for nebulization Shortness Of Breath Or Wheezing albuterol sulfate 90 mcg/actuation 1 - 2 puff inhalation DAILY PRN 06/09/19 01/15/22 History aerosol inhaler (Ventolin HFA) Shortness Of Breath Or Wheezing cetirizine 10 mg tablet (Zyrtec) 10 mg PO QAM 06/09/19 01/15/22 History venlafaxine 37.5 mg 37.5 mg PO DAILY 11/14/19 11/14/19 History capsule,extended release 24 hr CPAP Machine 01/15/22 01/15/22 History azithromycin 200 mg/5 mL oral 200 mg PO DAILY 01/15/22 01/15/22 History suspension cephalexin 500 mg tablet 500 mg PO BID 01/15/22 01/15/22 History prednisone 20 mg tablet 20 mg PO BID 01/15/22 01/15/22 History Magic Mouthwash 300 mL mouthwash 5 ml mucous membrane Q4H PRN 01/27/22 Rx pharyngitis #300 mL cephalexin 500 mg capsule 500 mg PO QID 7 days #28 caps 02/04/22 Rx doxycycline hyclate 100 mg tablet 100 mg PO BID 7 days #14 tabs 02/04/22 Rx Past Med/Surg History Medical History (Updated 02/04/22 @ 20:19 by Manuel Hurd MD) Asthma Breast abscess of female Obesity, Class III, BMI 40-49.9 (morbid obesity) Surgical History No pertinent past surgical history Social History Smoking Status: Current every day smoker Tobacco Type: Cigarettes Second Hand Exposure: No; Hx Alcohol Use: No Hx Substance Use: No Preferred Language: Armenian Communication Ability: Effective Greenskeeper Head Required: No Beliefs That Will Affect Care: None Current Living Situation: Spouse and Family Feels Safe at Home: Yes Assistive Devices: None Review of Systems Review of Systems: All systems reviewed & are unremarkable except as noted in HPI & below Physical Exam Constitutional: WD/WN, vitals as above + obese Eyes: EOM intact bilaterally; no conjunctival abnormality ENMT: external ear and nose normal, oropharynx normal Neck: trachea midline, no thyromegaly normal visual inspection Respiratory: normal respiratory effort, lungs clear to auscultation no respiratory distress Cardiovascular: RRR, no murmur, no edema Gastrointestinal (Abdomen): Inspection/Auscultation: abdomen normal to inspection; abdomen not distended Musculoskeletal: no cyanosis or clubbing, extremities motor strength 5/5 Skin: no rashes, warm and dry + wound (Right upper thigh with incision. No drainage. Erythema around.) Neurologic: moves all extremities and awake Psychiatric: Orientation: alert, oriented to person and cooperative Results & Data Results & Data ([facility]) Vital Signs (Past 12 Hours) Vital Signs Temp Pulse Resp BP Pulse Ox O2 Del Method 02/04/22 18:32 38.5 C H 112 H 19 155/98 H 96 Room Air Code Status & VTE Plan VTE Prophylaxis Plan VTE Prophylaxis will be ordered: Yes PG Care Time/CCT Total # of Minutes Spent Total Time Spent with Patient: Total time spent is greater than 50% in coordination of care (as documented) at patient's floor/unit and/or counseling patient: Coding Level of Care Code 73412 Initial Inpt Care Lvl 3 Diagnoses Abscess of skin AND/OR subcutaneous tissue L02.415 Laterality: right Site of cutaneous abscess: extremity Site of cutaneous abscess of extremity: lower extremity Asthma J45.909 Exertional dyspnea R06.09 RODENY (obstructive sleep apnea) G47.33 Obesity, Class III, BMI 40-49.9 (morbid obesity) E66.01 DVT prophylaxis Z29.9 (1) Abscess of skin AND/OR subcutaneous tissue Laterality: right Site of cutaneous abscess: extremity Site of cutaneous abscess of extremity: lower extremity Qualified Code(s): L02.415 - Cutaneous abscess of right lower limb
[2022-02-04] MEDS ORDERED: MoRPHine SULFATE 4 MG/ML 1 ML CARP\\VIAL IV STA (20:25)
[2022-02-04] MEDS ORDERED: ONDANSETRON INJ 2 MG/ML 2 ML VIAL IV PRN (21:43)
[2022-02-04] MEDS ORDERED: ALBUTEROL HFA 8 GM INHALER INH PRN (21:43)
[2022-02-04] MEDS: ACETAMINOPHEN 325 MG TAB PO PRN (23:17)
[2022-02-04] MEDS: MoRPHine SULFATE 2 MG/ML CARP IV PRN (23:54)
[2022-02-05] MEDS: MoRPHine SULFATE 2 MG/ML CARP IV PRN ×2 (03:57→08:41)
[2022-02-05 07:23] LABS: Hematocrit (blood only) 42.9 % (34.1-44.9); Mean Corpuscular Hgb Conc 32.6 g/dL (32.0-36.0); Mean Corpuscular Volume 91.9 fL (80.0-100.0); Platelet Count 267 K/uL (130-400); RDW Coefficient of Variation 13.5 % (11.5-14.5); RDW Standard Deviation 46.3 fL (36.4-46.3); Red Blood Count 4.67 M/uL (3.93-5.22)
[2022-02-05 07:44] LABS: BUN Creatinine Ratio 10.5 (10-20); Calcium 8.4 mg/dl (8.5-10.1); Creatinine Clr Calc Pharmacy 84.6 ml/min; Est GFR (African American) 82.7 ml/min; Est GFR (Non-African American) 71.3 ml/min; Potassium 3.9 mmol/L (3.5-5.1)
[2022-02-05] MEDS: ACETAMINOPHEN 325 MG TAB PO PRN ×3 (07:45→23:27)
--- NOTE | 2022-02-05 08:01 | Pharmacy Report ---
Pharmacy PK ABX Note - Date of Service February 05, 2022 - Assessment and Plan Assessment 46 year old F receiving vancomycin/ceftriaxone for treatment of right thigh abscess. Blood cultures, wound culture pending. Leukocytosis improving. Tmax 38.5 on admission. Day # 2 of antimicrobial therapy. Plan Vancomycin * Loading dose: 2250 mg IV x 1 * Maintenance dose: 750 mg IV every 12 hours * Regimen is predicted to achieve target AUC/TATIANA of 400-600 mg/L.hr * Random level ordered for 925 AM labs Pharmacy will continue to follow and will adjust dose/frequency as necessary. Thank you. Pharmacy has transitioned to AUC monitoring for vancomycin. AUC/TATIANA is the preferred PK/PD target and is associated with decreased risk of nephrotoxicity compared to traditional trough targets.
[2022-02-05] MEDS: VANCOMYCIN HCL 750 MG in SODIUM CHLORIDE 0.9% 250 ML IV SCH ×2 (08:43→19:59)
[2022-02-05] MEDS: CETIRIZINE HCL 10 MG TABLET PO SCH (09:35)
[2022-02-05] MEDS: VENLAFAXINE HCL XR 37.5 MG CAPXR PO SCH (09:35)
[2022-02-05 11:43] LABS: A calco-baum cmplx NotReported Not Detected (NotDetected); Bact fragilis Not Reported Not Detected (NotDetected); C auris Not Reported Not Detected (NotDetected); Calbicans Not Reported Not Detected (NotDetected); Candida glabrata Not Reported Not Detected (NotDetected); Candida krusei Not Reported Not Detected (NotDetected); Cneoformans/gatti Not Reported Not Detected (NotDetected); Cparapsilosis Not Reported Not Detected (NotDetected); Ctropicalis Not Reported Not Detected (NotDetected); E cloacae compx Not Reported Not Detected (NotDetected); Efaecalis Not Reported Not Detected (NotDetected); Efaecium Not Reported Not Detected (NotDetected); Enterobacterales Not Reported Not Detected (NotDetected); Escherichia coli Not Reported Not Detected (NotDetected); H influenzae Not Reported Not Detected (NotDetected); K aerogenes Not Reported Not Detected (NotDetected); Koxytoca Not Reported Not Detected (NotDetected); Kpneumoniae grp Not Reported Not Detected (NotDetected); Lmonocyt Not Reported Not Detected (NotDetected); N meningitidis Not Reported Not Detected (NotDetected); P aeruginosa Not Reported Not Detected (NotDetected); Proteus spp Not Reported Not Detected (NotDetected); Salmonella spp Not Reported Not Detected (NotDetected); Smarcescens Not Reported Not Detected (NotDetected); Staph lugdunensis Not Reported Not Detected (NotDetected); Staph spp. Not Reported DETECTED (NotDetected); Staphaureus Not Reported Not Detected (NotDetected); Staphepi Not Reported Not Detected (NotDetected); Stenmaltophilia Not Reported Not Detected (NotDetected); Strep agal(GrpB) Not Reported Not Detected (NotDetected); Strep pneum Not Reported Not Detected (NotDetected); Strep pyog (GrpA) Not Reported Not Detected (NotDetected); Strep spp Not Reported Not Detected (NotDetected)
[2022-02-05 11:47] LABS: Staphylococcus spp. DETECTED (NotDetected)
--- NOTE | 2022-02-05 13:55 | Hospitalist Progress Note ---
Date of Service February 05, 2022 Assessment & Plan (1) Sepsis: Plan: With leukocytosis, fever, tachycardia and source of infection being abscess of right thigh Improving today with tx of abscess Abscess I&D'd on 02/04 by ER PA--> still quite a bit of induration, erythema surrounding but improved from previous BCxs with Staph species--> pending species Wound cx with Gram stain +GPC and GNR -continue IV Vanco and add IV ceftriaxone due to GNR on wound cx -repeat BCxs this evening -f/u BCxs from admission for final species -f/u final wound cx -consult Surgery for further I&D, keep NPO after midnight in case of surgery tomorrow -APAP or morphine as needed for pain (2) Bacteremia: Plan: as above (3) Abscess of skin AND/OR subcutaneous tissue: Plan: Right thigh abscess, drained in ER, now with packing. as above Wound care consult in place for packing and dressing changes (4) Asthma: Plan: No wheezing or shortness of breath here - Albuterol PRN (5) Exertional dyspnea: Plan: Seen by [facility] cardiology. Plan for future stress test. - No inpatient needs (6) RODNEY (obstructive sleep apnea): Plan: - Ordered hospital CPAP; uses 2-3 cmH20 at home. (7) Obesity, Class III, BMI 40-49.9 (morbid obesity): Plan: Noted. Likely a factor in her recurrent abscesses. (8) DVT prophylaxis: Plan: Low risk - Early ambulation Plan Dispo-continued stay Admission and Anticipated Discharge Date Admission Date: February 04, 2022 Subjective Still having sharp pains in right groin and upper thigh, had some chills this AM but resolved. No CP, SOB, nausea, or diarrhea. Review of Systems Review of Systems: All systems reviewed & are unremarkable except as noted in HPI & below Physical Exam 2 Constitutional: WD/WN, vitals as above ENMT: external ear and nose normal, oropharynx normal Neck: trachea midline, no thyromegaly Respiratory: normal respiratory effort, lungs clear to auscultation Cardiovascular: RRR, no murmur, no edema Chest (Breasts): Chest: normal inspection of chest Gastrointestinal (Abdomen): normal bowel sounds, soft, nontender, no hepatos plenomegaly Musculoskeletal: Extremities: extremities normal to inspection; no cyanosis and no clubbing Skin: + lesion (draining fluctuant wound rt upper inner thigh,erythema and induration 8 cm) Neurologic: moves all extremities and awake; no focal motor deficits Psychiatric: A+Ox3, euthymic affect Lymphatic: no lymphedema Results & Data Results & Data ([facility]) Vital Signs (Past 12 Hours) Vital Signs Temp Pulse Resp BP BP Pulse Ox O2 Del Method 02/05/22 09:37 36.8 C 89 20 130/89 96 Room Air 02/05/22 07:40 37.0 C 79 18 131/82 96 Room Air Laboratory Results 02/05/22 02/05/22 02/04/22 Range/Units 06:43 06:43 19:29 WBC 10.90 H (4.8-10.8) K/ul RBC 4.67 (3.93-5.22) M/uL Hgb 14.0 (12.0-16.0) g/dl Hct 42.9 (34.1-44.9) % MCV 91.9 (80.0-100.0) fL MCH 30.0 (25.0-34.0) pg MCHC 32.6 (32.0-36.0) g/dL RDW Std Deviation 46.3 (36.4-46.3) fL RDW Coeff of Gina 13.5 (11.5-14.5) % Plt Count 267 (130-400) K/uL MPV 10.0 (9.4-12.3) fL Immature Gran % (Auto) % Neut % (Auto) % Lymph % (Auto) % [place] % (Auto) % Eos % (Auto) % Baso % (Auto) % Neut # (Auto) (1.4-6.5) K/uL Lymph # (Auto) (1.2-3.4) K/uL [place] # (Auto) (0.24-0.82) K/uL Eos # (Auto) (0-0.50) K/uL Baso # (Auto) (0-0.2) K/uL Immature Gran # (Auto) (0.00-0.02) K/uL Sodium 140 (136-145) mmol/L Potassium 3.9 (3.5-5.1) mmol/L Chloride 107 (98-107) mmol/L Carbon Dioxide 30 (21-32) mmol/L Anion Gap 3 (3-11) BUN 10 (6-23) mg/dl Creatinine 0.95 (0.6-1.2) mg/dl Est Cr Clr Drug Dosing 84.6 ml/min Est GFR ( Amer) 82.7 ml/min Est GFR (Non-Af Amer) 71.3 ml/min BUN/Creatinine Ratio 10.5 (10-20) Glucose 88 (70-99(Fasting)) mg/dl Calcium 8.4 L (8.5-10.1) mg/dl Total Bilirubin (0.2-1.0) mg/dl AST (13-39) U/L ALT (7-52) U/L Alkaline Phosphatase (34-104) U/L Total Protein (6.0-8.3) gm/dl Albumin (3.4-5.0) gm/dl Globulin (2.5-4.0) gm/dl Albumin/Globulin Ratio (0.9-2) SARS-CoV-2, RNA, NAAT NEGATIVE (NEGATIVE) Staphylococcus sp PCR (NotDetected) Bld Cult ID Panel PCR (NotDetected) 02/04/22 02/04/22 02/04/22 Range/Units 18:55 18:55 18:55 WBC 16.40 H (4.8-10.8) K/ul RBC 5.15 (3.93-5.22) M/uL Hgb 15.5 (12.0-16.0) g/dl Hct 45.8 H (34.1-44.9) % MCV 88.9 (80.0-100.0) fL MCH 30.1 (25.0-34.0) pg MCHC 33.8 (32.0-36.0) g/dL RDW Std Deviation 44.2 (36.4-46.3) fL RDW Coeff of Gina 13.5 (11.5-14.5) % Plt Count 257 (130-400) K/uL MPV 9.6 (9.4-12.3) fL Immature Gran % (Auto) 1.0 % Neut % (Auto) 84.3 % Lymph % (Auto) 7.8 % [place] % (Auto) 3.7 % Eos % (Auto) 2.7 % Baso % (Auto) 0.5 % Neut # (Auto) 13.81 H (1.4-6.5) K/uL Lymph # (Auto) 1.28 (1.2-3.4) K/uL [place] # (Auto) 0.60 (0.24-0.82) K/uL Eos # (Auto) 0.45 (0-0.50) K/uL Baso # (Auto) 0.09 (0-0.2) K/uL Immature Gran # (Auto) 0.17 H (0.00-0.02) K/uL Sodium 137 (136-145) mmol/L Potassium 3.8 (3.5-5.1) mmol/L Chloride 101 (98-107) mmol/L Carbon Dioxide 28 (21-32) mmol/L Anion Gap 8 (3-11) BUN 10 (6-23) mg/dl Creatinine 0.94 (0.6-1.2) mg/dl Est Cr Clr Drug Dosing 88.6 ml/min Est GFR ( Amer) 83.7 ml/min Est GFR (Non-Af Amer) 72.2 ml/min BUN/Creatinine Ratio 10.6 (10-20) Glucose 99 (70-99(Fasting)) mg/dl Calcium 9.0 (8.5-10.1) mg/dl Total Bilirubin 0.6 (0.2-1.0) mg/dl AST 13 (13-39) U/L ALT 29 (7-52) U/L Alkaline Phosphatase 71 (34-104) U/L Total Protein 6.7 (6.0-8.3) gm/dl Albumin 3.8 (3.4-5.0) gm/dl Globulin 2.9 (2.5-4.0) gm/dl Albumin/Globulin Ratio 1.3 (0.9-2) SARS-CoV-2, RNA, NAAT (NEGATIVE) Staphylococcus sp PCR DETECTED A (NotDetected) Bld Cult ID Panel PCR See PCR Comment (NotDetected) PG Care Time/CCT Total # of Minutes Spent Total Time Spent with Patient: Total time spent is greater than 50% in coordination of care (as documented) at patient's floor/unit and/or counseling patient: Coding Level of Care Code 41319 Subseq Hosp Care Lvl 2 Diagnoses Sepsis A41.9 Bacteremia R78.81 Abscess of skin AND/OR subcutaneous tissue L02.415 Laterality: right Site of cutaneous abscess: extremity Site of cutaneous abscess of extremity: lower extremity Asthma J45.909 Exertional dyspnea R06.09 RODNEY (obstructive sleep apnea) G47.33 Obesity, Class III, BMI 40-49.9 (morbid obesity) E66.01 DVT prophylaxis Z29.9 (1) Abscess of skin AND/OR subcutaneous tissue Laterality: right Site of cutaneous abscess: extremity Site of cutaneous abscess of extremity: lower extremity Qualified Code(s): L02.415 - Cutaneous abscess of right lower limb
[2022-02-05] MEDS ORDERED: VANCOMYCIN HCL 1,000 MG in SODIUM CHLORIDE 0.9% 250 ML IV SCH (14:00)
[2022-02-05] MEDS: NICOTINE 14 MG/24 HR PATCH TD SCH (17:02)
[2022-02-05] MEDS: cefTRIAXone SODIUM 2,000 MG in DEXTROSE 5% 50 ML IV SCH (17:36)
--- NOTE | 2022-02-05 19:30 | Surgery Consultation ---
Date of Consultation February 05, 2022 Assessment & Plan (1) Cellulitis of right thigh: pt is a 46 year-old female S/P I/S right thigh abscess, IMP: right thigh cellulitis, Plan, no surgery indication now, continue iv antibiotic, repeat labs in morning, wound care nurse change packing once a day, will F/U, History of Present Illness Reason for Consultation: right thigh infection Requesting Physician: Germaine Kirk MD Attending Physician: Germaine Kirk MD History of Present Illness History of Present Illness Primary Care Provider: Anabel Diehl CC: right thigh infection for 4 days, 46yo F w/ hx of obesity and prior skin abscesses who presents with right thigh abscess. Patient reports that she had small pimple/boil about 4 days ago, but has rapidly progressed. She was seen in the ER earlier today and had an I&D performed and was discharged on oral abx. However, when she went home in her car, she had rigors, fever, and decided to come back to the hospital. I ( Thuy Dorantes MD ) got a call for consult right thigh infection, pt had I/D abscess on right thigh at ER by Er attending 0n 02/04/2022, pt denies fever, wound culture- Gram Stain Final 02/05/22-0853 Gram Stain Result Many WBCs Seen Many Gram Positive Cocci Few Gram Negative Bacilli blood culture is Gram positive Cocci Allergies Allergy/AdvReac Type Severity Reaction Status Date / Time Sulfa (Sulfonamide Allergy Severe Verified 01/15/22 12:29 Antibiotics) oxycodone Allergy Intermediate Nausea Verified 01/15/22 12:29 cat dander Allergy Unknown . Verified 01/15/22 12:29 orange Allergy Unknown . Verified 01/15/22 12:29 Home Medications Medication Instructions Recorded Confirmed Type albuterol sulfate 2.5 mg/3 mL 2.5 mg inhalation DAILY PRN 06/09/19 History (0.083 %) solution for nebulization Shor tness Of Breath Or Wheezing albuterol sulfate 90 mcg/actuation 1 - 2 puff inhalation DAILY PRN 06/09/19 01/15/22 History aerosol inhaler (Ventolin HFA) Shortness Of Breath Or Wheezing cetirizine 10 mg tablet (Zyrtec) 10 mg PO QAM 06/09/19 2 History venlafaxine 37.5 mg 37.5 mg PO DAILY 11/14/19 11/14/19 History capsule,extended release 24 hr CPAP Machine 01/15/22 01/15/22 History azithromycin 200 mg/5 mL oral 200 mg PO DAILY 01/15/22 01/15/22 H istory suspension cephalexin 500 mg tablet 500 mg PO BID 01/15/22 01/15/22 Histor y prednisone 20 mg tablet 20 mg PO BID 01/15/22 01/15/22 History Magic Mouthwash 300 mL mouthwash 5 ml mucous membrane Q4H PRN 01/27/22 Rx pharyngitis #300 mL cephalexin 500 mg capsule 500 mg PO QID 7 days #28 caps 02/04/22 Rx doxycycline hyclate 100 mg tablet 100 mg PO BID 7 days #14 tabs 02/04/22 Rx Past Med/Surg History Medical History(Updated 02/04/22 @ 20:19 by Manuel Hurd MD) Asthma Breast abscess of female Obesity, Class III, BMI 40-49.9 (morbid obesity) Surgical History No pertinent past surgical history Social History Smoking Status: Current every day smoker Tobacco Type: Cigarettes Second Hand Exposure: No; Hx Alcohol Use: No Hx Substance Use: No Preferred Language: Mauritanian Communication Ability: Effective Group Social Worker Required: No Beliefs That Will Affect Care: None Current Living Situation: Spouse and Family Feels Safe at Home: Yes Assistive Devices: None Review of Systems Review of Systems: All systems reviewed & are unremarkable except as noted in HPI & below Allergies Allergy/AdvReac Type Severity Reaction Status Date / Time Sulfa (Sulfonamide Allergy Severe Verified 01/15/22 12:29 Antibiotics) oxycodone Allergy Intermediate Nausea Verified 01/15/22 12:29 cat dander Allergy Unknown . Verified 01/15/22 12:29 orange Allergy Unknown . Verified 01/15/22 12:29 Home Medications Medication Instructions Recorded Confirmed Type albuterol sulfate 2.5 mg/3 mL 2.5 mg inhalation DAILY PRN 06/09/19 01/15/22 History (0.083 %) solution for nebulization Shortness Of Breath Or Wheezing albuterol sulfate 90 mcg/actuation 1 - 2 puff inhalation DAILY PRN 06/09/19 01/15/22 History aerosol inhaler (Ventolin HFA) Shortness Of Breath Or Wheezing cetirizine 10 mg tablet (Zyrtec) 10 mg PO QAM 06/09/19 01/15/22 History venlafaxine 37.5 mg 37.5 mg PO DAILY 11/14/19 11/14/19 History capsule,extended release 24 hr CPAP Machine 01/15/22 01/15/22 History azithromycin 200 mg/5 mL oral 200 mg PO DAILY 01/15/22 01/15/22 History suspension cephalexin 500 mg tablet 500 mg PO BID 01/15/22 01/15/22 History prednisone 20 mg tablet 20 mg PO BID 01/15/22 01/15/22 History Magic Mouthwash 300 mL mouthwash 5 ml mucous membrane Q4H PRN 01/27/22 Rx pharyngitis #300 mL cephalexin 500 mg capsule 500 mg PO QID 7 days #28 caps 02/04/22 Rx doxycycline hyclate 100 mg tablet 100 mg PO BID 7 days #14 tabs 02/04/22 Rx Patient History Medical History (Updated 02/05/22 @ 19:36 by Thuy Dorantes MD) Asthma Breast abscess of female Obesity, Class III, BMI 40-49.9 (morbid obesity) Surgical History No pertinent past surgical history Social History Smoking Status: Current every day smoker Tobacco Type: Cigarettes Cigarettes Per Day: 30 cigarettes (1 1/2 pack) per day; Second Hand Exposure: No; Hx Alcohol Use: Yes Alcohol type: hard liquor Hx Substance Use: No Preferred Language: Mauritanian Communication Ability: Effective Group Social Worker Required: No Beliefs That Will Affect Care: None marital status: Current Living Situation: Spouse How many Children do You have: 0 Feels Safe at Home: Yes Assistive Devices: None Review of Systems Constitutional: as per Subjective / HPI (obesity) Eyes: as per Subjective / HPI Respiratory: as per Subjective / HPI smoking, ashma Cardiovascular: as per Subjective / HPI Gastrointestinal: as per Subjective / HPI Neurologic: as per Subjective / HPI Psychiatric: as per Subjective / HPI Endocrine: as per Subjective / HPI Hematologic / Lymphatic: as per Subjective / HPI Physical Exam Constitutional: WD/WN, vitals as above Eyes: PERRL, conjunctivae normal, anicteric sclerae Neck: trachea midline, no thyromegaly Respiratory: normal respiratory effort, lungs clear to auscultation Cardiovascular: RRR, no murmur, no edema Gastrointestinal (Abdomen): normal bowel sounds, soft, nontender, no hepatosplenomegaly Musculoskeletal: no cyanosis or clubbing, extremities motor strength 5/5 Skin: right thigh infection with redness, some tenderness, packing the wound no drainage now, Neurologic: patellar DTR's 2+ bilat, sensation intact Psychiatric: A+Ox3, euthymic affect Results & Data ([facility]) Vital Signs (Past 12 Hours) Vital Signs Temp Pulse Resp BP BP Pulse Ox O2 Del Method 02/05/22 15:12 36.6 C 77 19 146/86 H 95 Room Air 02/05/22 09:37 36.8 C 89 20 130/89 96 Room Air 02/05/22 07:40 37.0 C 79 18 131/82 96 Room Air Laboratory Results Abnormal lab results 02/04/22 02/05/22 02/05/22 Range/Units 18:55 06:43 06:43 WBC 10.90 H (4.8-10.8) K/ul Calcium 8.4 L (8.5-10.1) mg/dl Staphylococcus sp PCR DETECTED A (NotDetected)
[2022-02-06 07:28] LABS: Basophils # (auto) 0.05 K/uL (0-0.2); Basophils % (auto) 0.6 %; Eosinophils # (auto) 0.58 K/uL (0-0.50); Eosinophils % (auto) 7.2 %; Hematocrit (blood only) 43.5 % (34.1-44.9); Hemoglobin 14.4 g/dl (12.0-16.0); Immature Granulocytes % (auto) 1.2 %; Lymphocytes # (auto) 1.83 K/uL (1.2-3.4); Lymphocytes % (auto) 22.7 %; Mean Corpuscular Hemoglobin 29.8 pg (25.0-34.0); Mean Corpuscular Hgb Conc 33.1 g/dL (32.0-36.0); Mean Corpuscular Volume 90.1 fL (80.0-100.0); Mean Platelet Volume 9.9 fL (9.4-12.3); Monocytes # (auto) 0.79 K/uL (0.24-0.82); Monocytes % (auto) 9.8 %; Neutrophils # (auto) 4.71 K/uL (1.4-6.5); Neutrophils % (auto) 58.5 %; Platelet Count 248 K/uL (130-400); RDW Standard Deviation 42.9 fL (36.4-46.3); Red Blood Count 4.83 M/uL (3.93-5.22); White Blood Count 8.06 K/ul (4.8-10.8)
[2022-02-06 08:07] LABS: Albumin Globulin Ratio 1.1 (0.9-2); Albumin Level 3.4 gm/dl (3.4-5.0); BUN Creatinine Ratio 12.9 (10-20); Bilirubin,Total 0.4 mg/dl (0.2-1.0); C Reactive Protein 4.82 mg/dl (0-0.5); Calcium 8.4 mg/dl (8.5-10.1); Creatinine Clr Calc Pharmacy 94.5 ml/min; Est GFR (African American) 94.6 ml/min; Est GFR (Non-African American) 81.6 ml/min; Total Protein 6.4 gm/dl (6.0-8.3)
[2022-02-06] MEDS: CETIRIZINE HCL 10 MG TABLET PO SCH (09:20)
[2022-02-06] MEDS: VENLAFAXINE HCL XR 37.5 MG CAPXR PO SCH (09:20)
[2022-02-06] MEDS: VANCOMYCIN HCL 750 MG in SODIUM CHLORIDE 0.9% 250 ML IV SCH ×2 (09:24→20:16)
--- NOTE | 2022-02-06 11:56 | Surgery Progress Note ---
Date of Service February 06, 2022 Assessment & Plan (1) Cellulitis of right thigh: Plan: pt is a 46 year-old female S/P I/S right thigh abscess, IMP: right thigh cellulitis, Plan, no surgery indication now, continue iv antibiotic, repeat labs in morning, wound care nurse change packing once a day, will F/U, 02/06/2022 11: 53AM F/U right thigh infection, pt feels better, no fever, Plan, no surgery indication now, continue iv antibiotic, wound care nurse change dressing once a day, pt can be discharged per- her attending, pt will F/U [facility] wound care center once pt is discharged, sign off today, please call with questions, Thanks, Admission and Anticipated Discharge Date Admission Date: February 04, 2022 Subjective Still having sharp pains in right groin and upper thigh, had some chills this AM but resolved. No CP, SOB, nausea, or diarrhea. 02/06/2022 11:50 AM, DR. Dorantes F/U right thigh infection, pt feels better, no significant pain and less redness, no fever, WBC normal, Review of Systems Constitutional: as per Subjective / HPI (obesity) Eyes: as per Subjective / HPI Respiratory: as per Subjective / HPI smoking, ashma Cardiovascular: as per Subjective / HPI Gastrointestinal: as per Subjective / HPI Neurologic: as per Subjective / HPI Psychiatric: as per Subjective / HPI Endocrine: as per Subjective / HPI Hematologic / Lymphatic: as per Subjective / HPI Physical Exam Constitutional: WD/WN, vitals as above Eyes: PERRL, conjunctivae normal, anicteric sclerae Neck: trachea midline, no thyromegaly Respiratory: normal respiratory effort, lungs clear to auscultation Cardiovascular: RRR, no murmur, no edema Gastrointestinal (Abdomen): normal bowel sounds, soft, nontender, no hepatosplenomegaly Musculoskeletal: no cyanosis or clubbing, extremities motor strength 5/5 Skin: I change packing, no significant drainage, less redness around the wound, jillian wound bout 2 x2cm Neurologic: patellar DTR's 2+ bilat, sensation intact Psychiatric: A+Ox3, euthymic affect Results & Data ([facility]) Vital Signs (Past 12 Hours) Vital Signs Temp Pulse Resp BP Pulse Ox O2 Del Method 02/06/22 09:00 36.6 C 87 20 153/92 H 92 Room Air Laboratory Results Abnormal lab results 02/06/22 02/06/22 Range/Units 07:09 07:09 Eos # (Auto) 0.58 H (0-0.50) K/uL Immature Gran # (Auto) 0.10 H (0.00-0.02) K/uL Glucose 107 H (70-99(Fasting)) mg/dl Calcium 8.4 L (8.5-10.1) mg/dl ALT 61 H (7-52) U/L C-Reactive Protein 4.82 H (0-0.5) mg/dl
[2022-02-06] MEDS: MoRPHine SULFATE 2 MG/ML CARP IV PRN (11:58)
--- NOTE | 2022-02-06 17:21 | Hospitalist Progress Note ---
Date of Service February 06, 2022 Assessment & Plan (1) Sepsis: Plan: With leukocytosis, fever, tachycardia and source of infection being abscess of right thigh Continues to improve daily with tx of abscess Abscess I&D'd on 02/04 by ER PA BCxs with 1/2 bottles with coagulase-negative staph-likely contaminant Wound cx with Gram stain +GPC and GNR, pinpoint growth on culture still pending Erythema is now significantly improved, induration is less, continues to drain with wick/packing in place Appreciate general surgery consultation-no need for further surgical drainage at this time-recommends continued daily dressing changes and follow-up at wound care center after discharge Leukocytosis is now resolved, fevers and tachycardia also resolved -continue IV Vanco and IV ceftriaxone due to GPC and GNR on wound cx -repeat BCxs remain no growth to date, initial blood cultures likely positive for contaminant -f/u final wound cx and then narrow down antibiotics -APAP or morphine as needed for pain -Continue daily dressing changes -Will need wound care center follow-up after discharge (2) Bacteremia: Plan: as above, skin contaminant Repeat cultures negative (3) Abscess of skin AND/OR subcutaneous tissue: Plan: Right thigh abscess, drained in ER, now with packing. as above Wound care consult in place for packing and dressing changes (4) Asthma: Plan: No wheezing or shortness of breath here - Albuterol PRN (5) Exertional dyspnea: Plan: [place] [facility] [place] Plan for future stress test. - No inpatient needs (6) RODNEY (obstructive sleep apnea): Plan: - Ordered hospital CPAP; uses 2-3 cmH20 at home. (7) Obesity, Class III, BMI 40-49.9 (morbid obesity): Plan: Noted. Likely a factor in her recurrent abscesses. (8) DVT prophylaxis: Plan: Low risk - Early ambulation Plan Dispo-continued stay, but possible discharge home tomorrow if continues to improve Admission and Anticipated Discharge Date Admission Date: February 04, 2022 Subjective Patient reports improvement in the pain in her right groin region today. No further chills. No nausea or vomiting, no abdominal pains or diarrhea. No chest pains or shortness of breath. Review of Systems Review of Systems: All systems reviewed & are unremarkable except as noted in HPI & below Physical Exam Constitutional: WD/WN, vitals as above Eyes: + anicteric sclerae Neck: trachea midline, no thyromegaly Respiratory: normal respiratory effort, lungs clear to auscultation Cardiovascular: RRR, no murmur, no edema Chest (Breasts): Chest: normal inspection of chest Gastrointestinal (Abdomen): normal bowel sounds, soft, nontender, no hepatosplenomegaly Musculoskeletal: Extremities: extremities normal to inspection; no cyanosis and no clubbing Skin: + lesion (fluctuant wound rt upper inner thigh,erythema and induration 6 cm improved) Erythema significantly receded from drawn marker line on inner thigh Neurologic: moves all extremities and awake; no focal motor deficits Psychiatric: A+Ox3, euthymic affect Lymphatic: no lymphedema Results & Data Results & Data ([facility]) Vital Signs (Past 12 Hours) Vital Signs Temp Pulse Resp BP BP Pulse Ox O2 Del Method 02/06/22 15:53 36.6 C 84 20 109/75 96 Room Air 02/06/22 09:00 36.6 C 87 20 153/92 H 92 Room Air Laboratory Results 02/06/22 02/06/22 Range/Units 07:09 07:09 WBC 8.06 (4.8-10.8) K/ul RBC 4.83 (3.93-5.22) M/uL Hgb 14.4 (12.0-16.0) g/dl Hct 43.5 (34.1-44.9) % MCV 90.1 (80.0-100.0) fL MCH 29.8 (25.0-34.0) pg MCHC 33.1 (32.0-36.0) g/dL RDW Std Deviation 42.9 (36.4-46.3) fL RDW Coeff of Gina 13.0 (11.5-14.5) % Plt Count 248 (130-400) K/uL MPV 9.9 (9.4-12.3) fL Immature Gran % (Auto) 1.2 % Neut % (Auto) 58.5 % Lymph % (Auto) 22.7 % [place] % (Auto) 9.8 % Eos % (Auto) 7.2 % Baso % (Auto) 0.6 % Neut # (Auto) 4.71 (1.4-6.5) K/uL Lymph # (Auto) 1.83 (1.2-3.4) K/uL [place] # (Auto) 0.79 (0.24-0.82) K/uL Eos # (Auto) 0.58 H (0-0.50) K/uL Baso # (Auto) 0.05 (0-0.2) K/uL Immature Gran # (Auto) 0.10 H (0.00-0.02) K/uL Sodium 137 (136-145) mmol/L Potassium 4.0 (3.5-5.1) mmol/L Chloride 105 (98-107) mmol/L Carbon Dioxide 26 (21-32) mmol/L Anion Gap 6 (3-11) BUN 11 (6-23) mg/dl Creatinine 0.85 (0.6-1.2) mg/dl Est Cr Clr Drug Dosing 94.5 ml/min Est GFR ( Amer) 94.6 ml/min Est GFR (Non-Af Amer) 81.6 ml/min BUN/Creatinine Ratio 12.9 (10-20) Glucose 107 H (70-99(Fasting)) mg/dl Calcium 8.4 L (8.5-10.1) mg/dl Total Bilirubin 0.4 (0.2-1.0) mg/dl AST 35 (13-39) U/L ALT 61 H (7-52) U/L Alkaline Phosphatase 72 (34-104) U/L C-Reactive Protein 4.82 H (0-0.5) mg/dl Total Protein 6.4 (6.0-8.3) gm/dl Albumin 3.4 (3.4-5.0) gm/dl Globulin 3.0 (2.5-4.0) gm/dl Albumin/Globulin Ratio 1.1 (0.9-2) PG Care Time/CCT Total # of Minutes Spent Total Time Spent with Patient: Total time spent is greater than 50% in coordination of care (as documented) at patient's floor/unit and/or counseling patient: Coding Level of Care Code 87808 Subseq Hosp Care Lvl 2 Diagnoses Sepsis A41.9 Bacteremia R78.81 Abscess of skin AND/OR subcutaneous tissue L02.415 Laterality: right Site of cutaneous abscess: extremity Site of cutaneous abscess of extremity: lower extremity Asthma J45.909 Exertional dyspnea R06.09 RODNEY (obstructive sleep apnea) G47.33 Obesity, Class III, BMI 40-49.9 (morbid obesity) E66.01 DVT prophylaxis Z29.9 (1) Abscess of skin AND/OR subcutaneous tissue Laterality: right Site of cutaneous abscess: extremity Site of cutaneous abscess of extremity: lower extremity Qualified Code(s): L02.415 - Cutaneous abscess of right lower limb
[2022-02-06] MEDS: cefTRIAXone SODIUM 2,000 MG in DEXTROSE 5% 50 ML IV SCH (17:25)
[2022-02-06] MEDS: NICOTINE 14 MG/24 HR PATCH TD SCH (21:54)
[2022-02-07 07:27] LABS: Basophils # (auto) 0.06 K/uL (0-0.2); Basophils % (auto) 0.6 %; Eosinophils # (auto) 0.65 K/uL (0-0.50); Eosinophils % (auto) 6.7 %; Hematocrit (blood only) 44.8 % (34.1-44.9); Hemoglobin 15.1 g/dl (12.0-16.0); Immature Granulocytes # (auto) 0.11 K/uL (0.00-0.02); Immature Granulocytes % (auto) 1.1 %; Lymphocytes # (auto) 1.88 K/uL (1.2-3.4); Lymphocytes % (auto) 19.3 %; Mean Corpuscular Hemoglobin 30.1 pg (25.0-34.0); Mean Corpuscular Hgb Conc 33.7 g/dL (32.0-36.0); Mean Corpuscular Volume 89.2 fL (80.0-100.0); Mean Platelet Volume 9.7 fL (9.4-12.3); Monocytes # (auto) 0.81 K/uL (0.24-0.82); Monocytes % (auto) 8.3 %; Neutrophils # (auto) 6.23 K/uL (1.4-6.5); Platelet Count 277 K/uL (130-400); RDW Coefficient of Variation 13.2 % (11.5-14.5); RDW Standard Deviation 42.9 fL (36.4-46.3); Red Blood Count 5.02 M/uL (3.93-5.22); White Blood Count 9.74 K/ul (4.8-10.8)
[2022-02-07 07:58] LABS: Albumin Level 3.7 gm/dl (3.4-5.0); Bilirubin,Total 0.4 mg/dl (0.2-1.0); Potassium 3.9 mmol/L (3.5-5.1)
[2022-02-07] MEDS: CETIRIZINE HCL 10 MG TABLET PO SCH (08:02)
[2022-02-07] MEDS: VANCOMYCIN HCL 750 MG in SODIUM CHLORIDE 0.9% 250 ML IV SCH (08:02)
[2022-02-07] MEDS: VENLAFAXINE HCL XR 37.5 MG CAPXR PO SCH (08:02)
[2022-02-07 08:04] LABS: Albumin Globulin Ratio 1.2 (0.9-2); BUN Creatinine Ratio 9.1 (10-20); C Reactive Protein 2.65 mg/dl (0-0.5); Creatinine Clr Calc Pharmacy 81.2 ml/min; Est GFR (African American) 78.7 ml/min; Est GFR (Non-African American) 67.9 ml/min; Globulin 3.2 gm/dl (2.5-4.0); Total Protein 6.9 gm/dl (6.0-8.3)
--- NOTE | 2022-02-07 10:02 | Pharmacy Report ---
Pharmacy PK ABX Note - Date of Service February 07, 2022 - Assessment and Plan Assessment 46 year old F receiving vancomycin/ceftriaxone for treatment of right thigh abscess. Blood cultures, wound culture pending. Leukocytosis improving. Tmax 38.5 on admission. Day #4 of antimicrobial therapy. Plan Vancomycin * Current regimen: 750 mg IV every 12 hours * Trough level obtained 02/07/22 resulted as 6.4 mcg/mL. This is subtherapeutic. * Change to 750 mg IV every 8 hours. Predicted AUC at steady state: 459 mg/L.hr * Repeat trough level ordered for: 02/09/22 Pharmacy will continue to follow and will adjust dose/frequency as necessary. Thank you. Pharmacy has transitioned to AUC monitoring for vancomycin. AUC/TATIANA is the preferred PK/PD target and is associated with decreased risk of nephrotoxicity compared to traditional trough targets.
--- NOTE | 2022-02-07 13:02 | Discharge Summary ---
Date of Service February 07, 2022 Admission HPI Per Admitting Provider 46yo F w/ hx of obesity and prior skin abscesses who presents with right thigh abscess. Patient reports that she had small pimple/boil about 4 days ago, but has rapidly progressed. She was seen in the ER earlier today and had an I&D performed and was discharged on oral abx. However, when she went home in her car, she had rigors, fever, and decided to come back to the hospital. Principal Diagnosis Sepsis, Right thigh abscess Discharge Exam Constitutional WD/WN, vitals as above Eyes + anicteric sclerae ENMT external ear and nose normal, oropharynx normal Neck trachea midline, no thyromegaly Respiratory normal respiratory effort, lungs clear to auscultation Cardiovascular RRR, no murmur, no edema Chest (Breasts) Chest: normal inspection of chest Gastrointestinal (Abdomen) normal bowel sounds, soft, nontender, no hepatosplenomegaly Musculoskeletal Extremities: extremities normal to inspection; no cyanosis and no clubbing Skin + lesion (fluctuant wound rt upper inner thigh,much improved,less induration/erythema) with purulent drainage coming out of wound with wick in place Neurologic moves all extremities and awake; no focal motor deficits Psychiatric A+Ox3, euthymic affect Lymphatic no lymphedema Discharge Data Allergies Allergy/AdvReac Type Severity Reaction Status Date / Time Sulfa (Sulfonamide Allergy Severe Verified 01/15/22 12:29 Antibiotics) oxycodone Allergy Intermediate Nausea Verified 01/15/22 12:29 cat dander Allergy Unknown . Verified 01/15/22 12:29 orange Allergy Unknown . Verified 01/15/22 12:29 Consultations 02/04/22 19:10 ED Decision to Admit Stat 02/05/22 13:34 Consult General Surgery Routine Hospital Course (1) Sepsis: With leukocytosis, fever, tachycardia and source of infection being abscess of right thigh Continues to improve daily with tx of abscess Abscess I&D'd on 02/04 by ER PA BCxs with 1/2 bottles with coagulase-negative staph-likely contaminant Repeat BCxs remain NGTD Wound cx with Gram stain +GPC and GNR, culture with low counts of likely skin christy but still prelim report on day of discharge Erythema is now significantly improved, induration is much less, continues to drain with wick/packing in place. Pain much improved Appreciate general surgery consultation-no need for further surgical drainage at this time-recommends continued daily dressing changes and follow-up at wound care center after discharge Leukocytosis is now resolved, fevers and tachycardia also resolved -received IV Vanco and IV ceftriaxone due to GPC and GNR on wound cx--> convert to po Augmentin and doxycycline for 7 more days after discharge -repeat BCxs remain no growth to date, initial blood cultures likely positive for contaminant -f/u final wound cx after discharge but most likely will continue to improve on AUgmentin,doxy and with drainage -Continue daily dressing changes -Will need wound care center follow-up after discharge for repacking -advised seeking outpt DERM referral for likely hydradenitis suppurativa treatment (2) Bacteremia: as above, skin contaminant Repeat cultures negative (3) Abscess of skin AND/OR subcutaneous tissue: Right thigh abscess, drained in ER, now with packing. as above Wound care consult in place for packing and dressing changes (4) Asthma: No wheezing or shortness of breath here - Albuterol PRN (5) Exertional dyspnea: Seen by [facility] cardiology. Plan for future stress test. - No inpatient needs (6) RODNEY (obstructive sleep apnea): - Ordered hospital CPAP; uses 2-3 cmH20 at home. (7) Obesity, Class III, BMI 40-49.9 (morbid obesity): Noted. Likely a factor in her recurrent abscesses. (8) DVT prophylaxis: Low risk - Early ambulation Plan Dispo-stable for dc to home COunseled regarding smoking cessation on discharge Total Time Total Time Spent Total Time Spent (In Minutes): 35 min Discharge Plan Discharge Items Patient Disposition: Home - Self-Care Reason For Visit: RIGHT THIGH ABSCESS Discharge Diagnosis: Right thigh abscess Sepsis Condition on Discharge: Good Activity: Resume your previous activity Non-emergency contact: Primary Care Provider Call non-emergency contact if: you have any medication questions, your symptoms worsen, your pain is not controlled, your pain is worsening, you have a fever, your wound has increased redness and your wound pain has increased Follow-up/Referrals: [facility] [Outside] (Please follow up in the Wound Care Clinic within 2-3 days if possible) Anabel Diehl CRNP [Primary Care Provider] - (Follow up within 1-2 weeks) Diet: Regular Addtl Attending Provider Instructions: Please finish out the course of antibiotics with Augmentin and doxycycline for 7 more days. If your wound culture ends up growing a bacteria that is resistant to the antibiotics provided, you will be contacted. Follow up at the wound care clinic for packing changes and assessment of your wound. In the meantime, please change the overlying dressing at least once a day or as needed if bandage becomes soaked. You should consider being referred to a Meteorology Teacher for evaluation for hidradenitis suppurativa treatment. Pending Studies at Discharge: Yes (Wound and blood cultures) Stand-Alone Forms: My [facility], Smoking Cessation Medications and DC Order Prescriptions: New amoxicillin-pot clavulanate 875-125 mg tablet 1 tab PO BID Qty: 14 0RF doxycycline hyclate 100 mg tablet,delayed release (DR/EC) 100 mg PO BID 7 Days Qty: 14 0RF Continued venlafaxine 37.5 mg capsule,extended release 24hr 37.5 mg PO DAILY albuterol sulfate 2.5 mg /3 mL (0.083 %) solution for nebulization 2.5 mg inhalation DAILY PRN (Reason: Shortness Of Breath Or Wheezing) cetirizine [Zyrtec] 10 mg tablet 10 mg PO QAM albuterol sulfate [Ventolin HFA] 90 mcg/actuation HFA aerosol inhaler 1 - 2 puff INHALATION DAILY PRN (Reason: Shortness Of Breath Or Wheezing) furosemide 20 mg Tablet 20 mg PO DAILY PRN (Reason: Edema) potassium 20 mg Tablet,Chewable 10 mg PO DAILY PRN (Reason: Edema) Rx Instructions: Take with PRN furosemide cyanocobalamin (vitamin B-12) 1,000 mcg/mL Solution 1,000 mcg IM USEASDIRECTD Rx Instructions: biweekly No Action (DME) CPAP Machine Misc See Rx Instructions .ROUTE Rx Instructions: As directed Discharge Orders: Discharge Order (Routine); Ordered 02/07/22 Ordered By: Germaine Kirk Admission Data Admit Date/Time: 02/04/22 20:13 Attending Provider: Germaine Kirk Admit Provider: Manuel Hurd Primary Care Provider: Anabel Diehl Other Providers: Manuel Hurd ; Thuy Dorantes Coding Level of Care Code D/C DAY MANAGEMENT >30 MINS Diagnoses Sepsis A41.9 Bacteremia R78.81 Abscess of skin AND/OR subcutaneous tissue L02.415 Laterality: right Site of cutaneous abscess: extremity Site of cutaneous abscess of extremity: lower extremity Asthma J45.909 Exertional dyspnea R06.09 RODNEY (obstructive sleep apnea) G47.33 Obesity, Class III, BMI 40-49.9 (morbid obesity) E66.01 DVT prophylaxis Z29.9
[2022-02-07] MEDS: MoRPHine SULFATE 2 MG/ML CARP IV PRN (14:07)
[2022-02-07] MEDS ORDERED: VANCOMYCIN HCL 750 MG in SODIUM CHLORIDE 0.9% 250 ML IV SCH (16:00)
[2022-02-09] MEDS ORDERED: VANCOMYCIN LEVEL ONE (07:30)
== END 2022-02-07 15:30 | disposition home or self-care (01) | DRG 872 ==
LOC: ED 18:26 → SUATTDRO 20:13 → 3W 20:13

== ENCOUNTER 2023-10-23 14:37 | Inpatient (IN) ==
--- NOTE | 2023-10-23 14:46 | Emergency Department Note ---
History of Present Illness General Chief complaint: Groin Pain Stated complaint: GROIN PAIN Time Seen by Provider: 10/23/23 14:42 History of Present Illness NAME: APOLONIA FARFAN AGE: 47 SEX: F : 1975 ARRIVES VIA: Ambulance INFORMANT: Patient ED PROVIDER(S): GOVIND Mckee, Magnus Hartley MD The patient is a 47-year-old female who arrives via EMS to the emergency department for evaluation of worsening left groin pain. She was seen here yesterday by myself for a gluteal cleft abscess which was incised and drained at bedside then packed. The abscess was irrigated extensively yesterday, packing was placed, and the patient was placed on oral Augmentin for antimicrobial coverage. The patient arrived today with increasing pain, and states the abscess has extended now to the left labia. She has a history of previous abscesses that have required surgical intervention, as well as admission and IV antibiotics. Wound culture yesterday was obtained, the final result is not available however initial Gram stain shows gram-positive cocci with a Staphylococcus origin. The patient vital signs are stable, she appears nontoxic upon arrival. Home Medications Medication Instructions Recorded Confirmed Type albuterol sulfate 90 mcg/actuation 90 mcg inhalation QID PRN 10/23/23 10/23/23 History aerosol inhaler sob/wheezing cetirizine 10 mg tablet 10 mg PO DAILY 10/23/23 10/23/23 History Allergies Allergy/AdvReac Type Severity Reaction Status Date / Time clindamycin Allergy Severe Anaphylaxis Verified 10/23/23 17:09 Sulfa (Sulfonamide Allergy Severe Itching Verified 10/23/23 17:09 Antibiotics) rash cat dander Allergy Intermediate sneezing Verified 10/23/23 17:09 and "breaking out." dog dander Allergy Intermediate sneezing Verified 10/23/23 17:09 and "breaking out." orange Allergy Intermediate BLISTERS Verified 10/23/23 17:13 ON FACE sulfamethoxazole Allergy Intermediate ITCHY RASH Verified 10/23/23 17:09 [From Bactrim] tree and shrub pollen Allergy Intermediate Congested Verified 10/23/23 17:09 trimethoprim [From Bactrim] Allergy Intermediate ITCHY RASH Verified 10/23/23 17:09 oxycodone AdvReac Intermediate NAUSEA/VOMI Verified 10/23/23 17:09 ANATOLY Past Med/Surg History Problem List (Updated 10/23/23 @ 18:02 by GOVIND Young) Cellulitis (Acute) Infected sebaceous cyst of skin (Acute) Bacteremia Sepsis (Acute) Febrile (Acute) Leukocytosis (Acute) DVT prophylaxis Palpitation (Chronic) Exertional dyspnea (Acute) Exertional chest pain (Acute) Encounter for pre-operative examination Obesity, Class III, BMI 40-49.9 (morbid obesity) Caffeine abuse RODNEY (obstructive sleep apnea) Hematemesis (Acute) Vomiting (Acute) Acute epigastric pain (Acute) Tobacco abuse Asthma Breast abscess of female (Acute) Abscess of skin AND/OR subcutaneous tissue (Chronic 08/04/12) Surgical History No pertinent past surgical history Social History Smoking Status: Heavy tobacco smoker Tobacco Type: Cigarettes Cigarettes Per Day: 30 cigarettes (1 1/2 pack) per day; Second Hand Exposure: No; Do You Dip or Chew Tobacco: No; Hx Alcohol Use: Yes Alcohol type: hard liquor Hx Substance Use: No Preferred Language: Lithuanian Communication Ability: Effective Food Sales Clerk Required: No Beliefs That Will Affect Care: None marital status: Current Living Situation: Spouse How many Children do You have: 0 Feels Safe at Home: Yes Assistive Devices: None Physical Exam Vital Signs Vital Signs - 24 hr 10/23/23 14:46 10/23/23 15:19 10/23/23 16:32 Temperature 37.4 C Temperature Source Oral Pulse Rate 109 H 101 H Pulse Rate [Finger] 92 H Pulse Rhythm Regular Pulse Rhythm [Finger] Regular Pulse Strength Normal Pulse Strength [Finger] Normal Respiratory Rate 20 20 Respiratory Effort / Characteristics Non-Labored Non-Labored Spontaneous Respiratory Depth Normal Normal Respiratory Pattern Regular Blood Pressure 134/78 Blood Pressure [Left Arm] 134/78 Blood Pressure Mean 96 Blood Pressure Mean [Left Arm] 96 Blood Pressure Position Lying Blood Pressure Position [Left Arm] Sitting Pulse Oximetry 100 95 Oxygen Delivery Method Room Air Room Air Sepsis Recent Fever Within 48 Hours No Sepsis New/Unexplained Change in Mental Status N/A Sepsis Action Taken by Nursing No Action Required VITALS: Vitals are noted on the nurse's note and reviewed by myself. Vital signs stable. GENERAL: 47-year-old female, in no acute distress, nondiaphoretic, well- developed well-nourished. SKIN: The 8 cm x 3 cm abscess is present upon examination with packing still in place. There appears to be an extension of this abscess towards the left labia, depth of this abscess is unable to be determined upon physical examination. HEAD: Normocephalic atraumatic. HEART: Regular rate and rhythm without murmurs gallops or rubs. LUNGS: Clear to auscultation bilaterally without wheezes, rales or rhonchi. No retractions or accessory muscle use. ABDOMEN: Positive bowel sounds x 4. Soft, nontender, without masses or organomegaly. Gomez sign negative. No guarding or rebound tenderness. MUSCULOSKELETAL: No muscle atrophy, erythema, or edema noted. Full range of motion without joint tenderness in all extremities. No tenderness to palpation. Normal gait. Strength 5/5 throughout. NEURO: Patient was alert and oriented to person place and time. No focal neurological deficits. Course Administered Medications Hydromorphone HCl (Hydromorphone Inj 0.5 Mg/0.5 Ml Syr) 0.5 mg IV Q6H PRN PRN Reason: Severe Pain (Scale 7, 8, 9,10) Stop: 11/06/23 17:17 Last Admin: 10/23/23 17:51 Dose: 0.5 mg Documented By: CARI Daptomycin 300 mg/ Syringe 6 mls @ 3 mls/min IV Q24H [facility]; Protocol Stop: 10/25/23 16:59 Last Admin: 10/23/23 17:29 Dose: 3 mls/min Documented By: CARI Discontinued Medications Sodium Chloride (Nss) 1,000 mls @ 999 mls/hr IV .Q1H1M ONE Stop: 10/23/23 15:48 Last Infusion: 10/23/23 16:35 Dose: Infused Documented By: Admin: 10/23/23 15:16 Dose: 999 mls/hr Documented By: CARI Ioversol (Optiray 320 100ml) 94 ml IV ONCE ONE Stop: 10/23/23 16:13 Last Admin: 10/23/23 16:13 Dose: 94 ml Documented By: DM Morphine Sulfate (Morphine Sulfate 4 Mg/Ml 1 Ml Carp\\Vial) 4 mg IV NOW STA Stop: 10/23/23 14:49 Last Admin: 10/23/23 15:16 Dose: 4 mg Documented By: CARI Ondansetron HCl (Ondansetron Inj 2 Mg/Ml 2 Ml Vial) 4 mg IV NOW STA Stop: 10/23/23 14:49 Last Admin: 10/23/23 15:16 Dose: 4 mg Documented By: CARI Medical Decision Making Differential Diagnosis Cellulitis, abscess, MRSA infection, DVT, necrotizing fasciitis, dermatitis, drug eruption, allergic reaction, as well as other pathologies. Medical Records Attestation: I reviewed the patient's medical records. Home Medications Current Medication List: was personally reviewed by me Laboratory Data Attestation: I reviewed the patient's lab results. No leukocytosis, stable hemoglobin and hematocrit, CMP not resulted at this time, lactate negative. 10/23/23 17:01 10/23/23 17:01 Lab Results 10/23/23 10/23/23 10/23/23 Range/Units 15:00 15:40 15:52 WBC Cancelled RBC Cancelled Hgb Cancelled Hct Cancelled MCV Cancelled MCH Cancelled MCHC Cancelled RDW Std Deviation Cancelled RDW Coeff of Gina Cancelled Plt Count Cancelled MPV Cancelled Immature Gran % (Auto) Cancelled Neut % (Auto) Cancelled Lymph % (Auto) Cancelled [place] % (Auto) Cancelled Eos % (Auto) Cancelled Baso % (Auto) Cancelled Neut # (Auto) Cancelled Lymph # (Auto) Cancelled [place] # (Auto) Cancelled Eos # (Auto) Cancelled Baso # (Auto) Cancelled Immature Gran # (Auto) Cancelled Absolute Nucleated RBC Cancelled SALES PRODUCT MANAGER Nucleated RBC % (auto) Cancelled SALES PRODUCT MANAGER Neutrophils % (Manual) Cancelled SALES PRODUCT MANAGER Band Neutrophils % Cancelled SALES PRODUCT MANAGER Lymphocytes % (Manual) Cancelled SALES PRODUCT MANAGER Prolymphocyte % Cancelled SALES PRODUCT MANAGER Reactive Lymphs % (Man) Cancelled SALES PRODUCT MANAGER Monocytes % (Manual) Cancelled SALES PRODUCT MANAGER Eosinophils % (Manual) Cancelled SALES PRODUCT MANAGER Basophils % (Manual) Cancelled SALES PRODUCT MANAGER Metamyelocytes % (Man) Cancelled SALES PRODUCT MANAGER Myelocytes % (Man) Cancelled SALES PRODUCT MANAGER Promyelocytes % (Man) Cancelled SALES PRODUCT MANAGER Blast Cells % (Manual) Cancelled SALES PRODUCT MANAGER Plasma Cell % (Manual) Cancelled SALES PRODUCT MANAGER Other Cells % Cancelled SALES PRODUCT MANAGER Nucleated RBC % Cancelled SALES PRODUCT MANAGER Neutrophils # (Manual) Cancelled SALES PRODUCT MANAGER Band Neutrophils # Cancelled SALES PRODUCT MANAGER Total Absolute Neuts Cancelled SALES PRODUCT MANAGER Lymphocytes # (Manual) Cancelled SALES PRODUCT MANAGER Prolymphocyte # Cancelled SALES PRODUCT MANAGER Reactive Lymphs # Cancelled SALES PRODUCT MANAGER Total Abs Lymphocytes Cancelled SALES PRODUCT MANAGER Monocytes # (Manual) Cancelled SALES PRODUCT MANAGER Eosinophils # (Manual) Cancelled SALES PRODUCT MANAGER Basophils # (Manual) Cancelled SALES PRODUCT MANAGER Metamyelocytes # (Man) Cancelled SALES PRODUCT MANAGER Myelocytes # (Manual) Cancelled SALES PRODUCT MANAGER Promyelocytes # (Man) Cancelled SALES PRODUCT MANAGER Blast Cells # (Man) Cancelled SALES PRODUCT MANAGER Plasma Cell # (Manual) Cancelled SALES PRODUCT MANAGER Other Cells # Cancelled SALES PRODUCT MANAGER Nucleated RBCs # (Man) Cancelled SALES PRODUCT MANAGER Hypersegmented Neuts Cancelled SALES PRODUCT MANAGER Hyposegmented Neuts Cancelled SALES PRODUCT MANAGER Hypogranular Neuts Cancelled SALES PRODUCT MANAGER Large Granular Lymphs Cancelled SALES PRODUCT MANAGER # Lrg Granular Lymphs Cancelled SALES PRODUCT MANAGER Hairy Cells Cancelled SALES PRODUCT MANAGER Smudge Cells Cancelled SALES PRODUCT MANAGER Toxic Granulation Cancelled SALES PRODUCT MANAGER Toxic Vacuolation Cancelled SALES PRODUCT MANAGER Dohle Bodies Cancelled SALES PRODUCT MANAGER Raghav Rods Cancelled SALES PRODUCT MANAGER Platelet Estimate Cancelled SALES PRODUCT MANAGER Hypogranular Platelets Cancelled SALES PRODUCT MANAGER Giant Platelets Cancelled SALES PRODUCT MANAGER Platelet Satelliting Cancelled SALES PRODUCT MANAGER RBC Morphology Cancelled SALES PRODUCT MANAGER Polychromasia Cancelled SALES PRODUCT MANAGER Hypochromasia Cancelled SALES PRODUCT MANAGER Poikilocytosis Cancelled SALES PRODUCT MANAGER Basophilic Stippling Cancelled SALES PRODUCT MANAGER Anisocytosis Cancelled SALES PRODUCT MANAGER Microcytosis Cancelled SALES PRODUCT MANAGER Macrocytosis Cancelled SALES PRODUCT MANAGER Spherocytes Cancelled SALES PRODUCT MANAGER Pappenheimer Bodies Cancelled SALES PRODUCT MANAGER Sickle Cells Cancelled SALES PRODUCT MANAGER Target Cells Cancelled SALES PRODUCT MANAGER Tear Drop Cells Cancelled SALES PRODUCT MANAGER Ovalocytes Cancelled SALES PRODUCT MANAGER Stomatocytes Cancelled SALES PRODUCT MANAGER Blakely-Fabrica Bodies Cancelled SALES PRODUCT MANAGER Echinocytes Cancelled SALES PRODUCT MANAGER Acanthocytes (Spur) Cancelled SALES PRODUCT MANAGER Rouleaux Cancelled SALES PRODUCT MANAGER RBC Agglutinates Cancelled SALES PRODUCT MANAGER Schistocytes Cancelled SALES PRODUCT MANAGER Sezary Cell Cancelled SALES PRODUCT MANAGER Sodium TNP Cancelled Potassium TNP Cancelled Chloride 100 (98-107) mmol/L Carbon Dioxide 26 (21-32) mmol/L Anion Gap TNP BUN 13 (6-23) mg/dl Creatinine 0.97 (0.6-1.2) mg/dl Est Cr Clr Drug Dosing 85.7 ml/min Est GFR ( Amer) 80.0 ml/min Est GFR (Non-Af Amer) 69.1 ml/min BUN/Creatinine Ratio 13.4 (10-20) Glucose 87 (70-99(Fasting)) mg/dl Lactate 1.6 (0.4-2.0) mmol/L Calcium 9.5 (8.6-10.3) mg/dl Blood Parasites ID Cancelled SALES PRODUCT MANAGER 10/23/23 Range/Units 17:01 WBC 9.22 RBC 4.76 Hgb 14.0 Hct 42.3 MCV 88.9 MCH 29.4 MCHC 33.1 RDW Std Deviation 42.7 RDW Coeff of Gina 13.0 Plt Count 231 MPV 9.8 Immature Gran % (Auto) 0.3 Neut % (Auto) 74.1 Lymph % (Auto) 12.3 [place] % (Auto) 8.0 Eos % (Auto) 4.9 Baso % (Auto) 0.4 Neut # (Auto) 6.83 H Lymph # (Auto) 1.13 L [place] # (Auto) 0.74 H Eos # (Auto) 0.45 Baso # (Auto) 0.04 Immature Gran # (Auto) 0.03 Absolute Nucleated RBC Nucleated RBC % (auto) Neutrophils % (Manual) Band Neutrophils % Lymphocytes % (Manual) Prolymphocyte % Reactive Lymphs % (Man) Monocytes % (Manual) Eosinophils % (Manual) Basophils % (Manual) Metamyelocytes % (Man) Myelocytes % (Man) Promyelocytes % (Man) Blast Cells % (Manual) Plasma Cell % (Manual) Other Cells % Nucleated RBC % Neutrophils # (Manual) Band Neutrophils # Total Absolute Neuts Lymphocytes # (Manual) Prolymphocyte # Reactive Lymphs # Total Abs Lymphocytes Monocytes # (Manual) Eosinophils # (Manual) Basophils # (Manual) Metamyelocytes # (Man) Myelocytes # (Manual) Promyelocytes # (Man) Blast Cells # (Man) Plasma Cell # (Manual) Other Cells # Nucleated RBCs # (Man) Hypersegmented Neuts Hyposegmented Neuts Hypogranular Neuts Large Granular Lymphs # Lrg Granular Lymphs Hairy Cells Smudge Cells Toxic Granulation Toxic Vacuolation Dohle Bodies Raghav Rods Platelet Estimate Hypogranular Platelets Giant Platelets Platelet Satelliting RBC Morphology Polychromasia Hypochromasia Poikilocytosis Basophilic Stippling Anisocytosis Microcytosis Macrocytosis Spherocytes Pappenheimer Bodies Sickle Cells Target Cells Tear Drop Cells Ovalocytes Stomatocytes Blakely-Fabrica Bodies Echinocytes Acanthocytes (Spur) Rouleaux RBC Agglutinates Schistocytes Sezary Cell Sodium 135 L Potassium 4.2 Chloride (98-107) mmol/L Carbon Dioxide (21-32) mmol/L Anion Gap BUN (6-23) mg/dl Creatinine (0.6-1.2) mg/dl Est Cr Clr Drug Dosing ml/min Est GFR ( Amer) ml/min Est GFR (Non-Af Amer) ml/min BUN/Creatinine Ratio (10-20) Glucose (70-99(Fasting)) mg/dl Lactate (0.4-2.0) mmol/L Calcium (8.6-10.3) mg/dl Blood Parasites ID Imaging Data Attestation: I personally reviewed and interpreted this imaging study as follows: My Impression: Extensive left gluteal abscess with tracking into the left labia and groin. Radiologist's Impression: Pelvis CT 10/23/23 14:48 CT SCAN OF THE PELVIS WITH IV CONTRAST CLINICAL HISTORY: Abscess status post recent drainage. COMPARISON STUDY: Pelvic CT dated 08/25/2023. TECHNIQUE: Following the IV administration of 94 cc of Optiray 320, CT scan of the pelvis is performed from the pelvic inlet to the proximal femora. Images are reviewed in the axial, sagittal, and coronal planes. IV contrast was administered without complication. A dose lowering technique was utilized adhering to the principles of ALARA. CT DOSE: 1663.67 mGy.cm FINDINGS: The bladder, uterus, and adnexa are normal as visualized noting small bilateral ovarian follicles. There is no free fluid or intraperitoneal free air identified in the pelvis. The imaged bowel loops are normal in caliber with no evidence of obstruction. A normal appendix is seen in the right lower quadrant. There is a fat-containing umbilical hernia. No pelvic sidewall lymphadenopathy is identified. There are prominent left inguinal lymph nodes which measure up to 2.5 cm in length. These are likely reactive. There is infiltration of the left perineal soft tissues typical for sialitis. A fluid collection is seen in the left perineum/medial upper thigh below the labia on axial image #434. This is just deep to the dermal surface and measures 2.3 x 4.4 x 1.8 cm. This is typical in appearance for abscess. There is a focus of subcutaneous gas and infiltration/fluid at the dermal surface seen more posteriorly in the right upper thigh on image #451. This may represent the site of a reportedly drained abscess. No additional foci of soft tissue gas are identified. The perianal and gluteal soft tissues are normal in appearance. The bony pelvis appears intact. No lytic or blastic lesion is seen. Sclerotic change is noted in the sacroiliac joints. The regional musculature is normal in appearance. IMPRESSION: 1. There is evidence of cellulitis in the soft tissues of the left perineum/medial upper thigh. 2. There is a 4.4 cm fluid collection in the left anterior perineum/upper thigh below the labia that is typical for abscess. 3. Inflammation the small foci of soft tissue gas and trace fluid posterior to this collection in the medial upper thigh likely represents the site of a reportedly drained abscess. No additional foci of soft tissue gas are identified and necrotizing infection is considered much less likely. Correlate clinically. 4. The pelvic viscera is normal in appearance. 5. Additional findings as above. ACT 112: Negative or not required by law. Electronically signed by: Gustavo Solorio M.D. 10/23/2023 4:26 PM Blood Pressure Blood Pressure Findings: Normal blood pressure MDM Narrative The patient is a 47-year-old female who arrives to the emergency department for the above-stated complaint. Upon examination it does appear the previous days wound still has the packing, however the surrounding induration and cellulitis has extended now into the left labia. It is unable to be determined on physical examination the extent of this abscess, therefore CT imaging was obtained. A saline lock was established, CBC, CMP, lactate were ordered. CBC shows no leukocytosis, stable hemoglobin and hematocrit, CMP was not resulted at time of admission, lactate was negative. CT imaging of the abdomen and pelvis with IV contrast shows a 4.4 cm fluid collection in the left anterior perineum/upper thigh below the labia which is typical for an abscess. There also appears to be inflammation of the small foci of soft tissue gas and trace fluid posterior to this collection in the medial upper thigh likely representing the previous days drained abscess. There does not appear to be any necrotizing infection present. At this time I contacted case management to facilitate the admission process for IV antibiotics. Dr. Sandhu from general surgery was contacted for surgical consult. Dr. Wilda Garcia from the [facility] agreed to accept the patient for admission and recommended IV Dalvance. The patient was provided with an initial dose of IV Dalvance, as well as IV fluids and IV morphine and Zofran for pain and nausea. Please refer to Dr. Garcia documentation for further patient care at this time. Impression & Plan Abscess of skin AND/OR subcutaneous tissue Discharge Plan Visit Data Chief Complaint: Groin Pain Stated Complaint: GROIN PAIN ED Provider: Magnus Hartley ED Midlevel Provider: Carrol Jean Discharge Problem: Abscess of skin AND/OR subcutaneous tissue Forms Stand Alone Forms: [facility] [employer] Prescriptions Prescriptions: No Action cetirizine 10 mg Tablet 10 mg PO DAILY albuterol sulfate 90 mcg/actuation HFA aerosol inhaler 90 mcg INHALATION QID PRN (Reason: sob/wheezing) Referrals Referrals: Yue Mccurdy DO [Primary Care Provider] -
[2023-10-23] MEDS: ONDANSETRON INJ 2 MG/ML 2 ML VIAL IV STA (15:16)
[2023-10-23] MEDS: MoRPHine SULFATE 4 MG/ML 1 ML CARP\\VIAL IV STA (15:16)
[2023-10-23] MEDS: SODIUM CHLORIDE 0.9% 1,000 ML IV ONE (15:16)
[2023-10-23 15:47] LABS: BUN Creatinine Ratio 13.4 (10-20); Blood Urea Nitrogen 13 mg/dl (6-23); Calcium 9.5 mg/dl (8.6-10.3); Carbon Dioxide 26 mmol/L (21-32); Chloride 100 mmol/L (98-107); Creatinine Clr Calc Pharmacy 85.7 ml/min; Est GFR (Non-African American) 69.1 ml/min; Glucose 87 mg/dl (70-99(Fasting))
[2023-10-23] MEDS: OPTIRAY 320 100ml IV ONE (16:13)
--- NOTE | 2023-10-23 16:28 | CT Scan Report ---
CT SCAN OF THE PELVIS WITH IV CONTRAST CLINICAL HISTORY: Abscess status post recent drainage. COMPARISON STUDY: Pelvic CT dated 08/25/2023. TECHNIQUE: Following the IV administration of 94 cc of Optiray 320, CT scan of the pelvis is performe d from the pelvic inlet to the proximal femora. Images are reviewed in the axial, sagittal, and coron al planes. IV contrast was administered without complication. A dose lowering technique was utilized adhering to the principles of ALARA. CT DOSE: 1663.67 mGy.cm FINDINGS: The bladder, uterus, and adnexa are normal as visualized noting small bilateral ovarian follicles. Th ere is no free fluid or intraperitoneal free air identified in the pelvis. The imaged bowel loops are normal in caliber with no evidence of obstruction. A normal appendix is seen in the right lower quad rant. There is a fat-containing umbilical hernia. No pelvic sidewall lymphadenopathy is identified. T here are prominent left inguinal lymph nodes which measure up to 2.5 cm in length. These are likely r eactive. There is infiltration of the left perineal soft tissues typical for sialitis. A fluid collection is s een in the left perineum/medial upper thigh below the labia on axial image #434. This is just deep to the dermal surface and measures 2.3 x 4.4 x 1.8 cm. This is typical in appearance for abscess. There is a focus of subcutaneous gas and infiltration/fluid at the dermal surface seen more posteriorly in the right upper thigh on image #451. This may represent the site of a reportedly drained abscess. No additional foci of soft tissue gas are identified. The perianal and gluteal soft tissues are normal in appearance. The bony pelvis appears intact. No ly tic or blastic lesion is seen. Sclerotic change is noted in the sacroiliac joints. The regional muscu lature is normal in appearance. IMPRESSION: 1. There is evidence of cellulitis in the soft tissues of the left perineum/medial upper thigh. 2. There is a 4.4 cm fluid collection in the left anterior perineum/upper thigh below the labia that is typical for abscess. 3. Inflammation the small foci of soft tissue gas and trace fluid posterior to this collection in the medial upper thigh likely represents the site of a reportedly drained abscess. No additional foci of soft tissue gas are identified and necrotizing infection is considered much less likely. Correlate c linically. 4. The pelvic viscera is normal in appearance. 5. Additional findings as above. ACT 112: Negative or not required by law. Electronically signed by: Gustavo Solorio M.D. 10/23/2023 4:26 PM
--- NOTE | 2023-10-23 16:56 | History & Physical Report ---
Date of Service October 23, 2023 Assessment & Plan (1) Cellulitis: (2) Infected sebaceous cyst of skin: Plan Ms. Hayes is a 47 year old woman with past medical history remarkable for asthma, NAFLD, morbid obesity, HLD, as well as prior skin abscesses requiring ID who presented to [facility] ED due to worsening pain from abscess s/p I&D on 10/21. Admitted for IV antibiotics given progression of abscess and discussion of possible surgical intervention. #Large abscess in perineum #Hx of Multiple abscesses c/f hidradenitis suppurativa CT pelvis with cellulitis and 4.4 cm fluid collection in the left anterior perineum/upper thigh below the labia that is typical for abscess Preliminary cultures with staph, however, given location and severity will pursue broad coverage until cultures result -Dapto/Zosyn -follow infectious work up -Monitor on tele given tachycardia Gen Surg on consult NPO midnight if wash out necessary pain management #Dermatitis in flexor areas historically put on multiple antifungals as op, suspicious for eczema as well stable at this time, patient would benefit op derm #HLD reports noncompliance with medications #Morbid obesity #Hepatic steatosis -stable LFTs BMI 44 consider discussion for weight loss/lifestyle modifications #Tobacco use Declined nicotine patch #Asthma stable, chronic albuterol prn #Allergic rhinitis Zyrtec qhs #Major depressive disorder, recurrent, moderate Prescribed venlafaxine, doesn't take DVT ppx hpearin sq Admit med surg PCP Calli Admission and Anticipated Discharge Date Admission Date: Time spent evaluating patient, direct bedside care, chart review, placing orders, interpretation of diagnostic studies, discussion with consultants, patient, and family members, as well as other required patient management activities is 75 minutes. History of Present Illness Chief Complaint: Abscess Primary Care Provider: Yue Mccurdy DO Ms. Hayes is a 47 year old woman with past medical history remarkable for asthma, NAFLD, morbid obesity, HLD, as well as prior skin abscesses requiring ID who presented to [facility] ED due to worsening pain from abscess s/p I&D on 10/21. Patient with history of multiple abscess on left breast, underarms, and groin that have required antibitoics and drainage.Patient denies being diagnosed with hidradenitis suppurativa. She states they usually will drain in ED and she can go home on antibiotics. She notes that the abscess on her left gluteal fold started 2-3 days ago and became very painful prompting presentation to ED on 10/21. After it was drained, patient states she felt alright, however, she noted that in the evening the pain and swelling worsening into her groin Patient states she has multiple medications prescribed to her, but she doesn't take any of them--she just takes Zyrtec and albuterol prn. She smokes and declines a nicotine patch. She endorses alcohol 1-2 times a week. In the ED, vitals were notable for BP of 130s, HR of 90s-100 and O2 sat of 90s on room air, temp borderlin 37.4 TMAX Imaging revealed extensive cellulitis of perineum and fluid collection in perineum and labia EKG sinus tachycardia ED interventions: morphine, dapto, Consultants: gen surg Patient to be admitted to [facility] for further evaluation and management of abscess of perineum Allergies Allergy/AdvReac Type Severity Reaction Status Date / Time clindamycin Allergy Severe Anaphylaxis Verified 10/23/23 17:09 Sulfa (Sulfonamide Allergy Severe Itching Verified 10/23/23 17:09 Antibiotics) rash cat dander Allergy Intermediate sneezing Verified 10/23/23 17:09 and "breaking out." dog dander Allergy Intermediate sneezing Verified 10/23/23 17:09 and "breaking out." orange Allergy Intermediate BLISTERS Verified 10/23/23 17:13 ON FACE sulfamethoxazole Allergy Intermediate ITCHY RASH Verified 10/23/23 17:09 [From Bactrim] tree and shrub pollen Allergy Intermediate Congested Verified 10/23/23 17:09 trimethoprim [From Bactrim] Allergy Intermediate ITCHY RASH Verified 10/23/23 17:09 oxycodone AdvReac Intermediate NAUSEA/VOMI Verified 10/23/23 17:09 TING Home Medications Medication Instructions Recorded Confirmed Type albuterol sulfate 90 mcg/actuation 90 mcg inhalation QID PRN 10/23/23 10/23/23 History aerosol inhaler sob/wheezing cetirizine 10 mg tablet 10 mg PO DAILY 10/23/23 10/23/23 History Past Med/Surg History Problem List (Updated 10/23/23 @ 18:02 by GOVIND Young) Cellulitis (Acute) Infected sebaceous cyst of skin (Acute) Bacteremia Sepsis (Acute) Febrile (Acute) Leukocytosis (Acute) DVT prophylaxis Palpitation (Chronic) Exertional dyspnea (Acute) Exertional chest pain (Acute) Encounter for pre-operative examination Obesity, Class III, BMI 40-49.9 (morbid obesity) Caffeine abuse RODNEY (obstructive sleep apnea) Hematemesis (Acute) Vomiting (Acute) Acute epigastric pain (Acute) Tobacco abuse Asthma Breast abscess of female (Acute) Abscess of skin AND/OR subcutaneous tissue (Chronic 08/04/12) Surgical History No pertinent past surgical history Social History Smoking Status: Heavy tobacco smoker Tobacco Type: Cigarettes Cigarettes Per Day: 30 cigarettes (1 1/2 pack) per day; Second Hand Exposure: No; Do You Dip or Chew Tobacco: No; Hx Alcohol Use: Yes Alcohol type: hard liquor Hx Substance Use: No Preferred Language: Sinhala Communication Ability: Effective Incubator Operator Required: No Beliefs That Will Affect Care: None marital status: Current Living Situation: Spouse How many Children do You have: 0 Feels Safe at Home: Yes Assistive Devices: None Review of Systems Review of Systems: Constitutional: (-) fever/chills, (-) recent loss of weight, (-) appetite c hanges, (-) night sweats. Head: (-) headache, (-) dizziness. Eye: (-) blurring of vision, (-) double vision, (-) redness. Ear: (-) hearing loss, (-) discharge, (-) vertigo Nose: (-) discharge, (-) bleeding, (-) congestion, (-) post nasal drip. Throat: (-) sore throat, (-) hoarseness of voice, (-) odynophagia. Cardiovascular: (-) chest pain, (-) palpitations, (-) syncope, (-) orthopnea, Respiratory: (-) shortness of breath, (-) cough, (-) wheezing, (-) hemoptysis. Neuro: (-) weakness in extremities, (-) numbness, (-) tingling, (-) tremor. Gastrointestinal: (-) belly pain, (-) belly distension, (-) nausea, (-) vomiting, (-) diarrhea, (-) constipation, Genitourinary: (-) hematuria, (-) dysuria, (-) polyuria, (-) hesitancy, (-) frequency, (-) urinary incontinence. Musculoskeletal: (-) myalgia, (-) arthralgia. Endocrine: (-) heat/cold intolerance. Skin: +multiple abscesses Physical Exam Physical Exam: GENERAL APPEARANCE: AxOx4, uncomfortable appearing woman HEENT: NC, AT. MMM. EOMI, clear conjunctiva, oropharynx clear. edentulous NECK: Supple without lymphadenopathy. No stiffness or restricted ROM. HEART: tachycardiac, regular no murmur LUNGS: CTAB, moving air well. No crackles or wheezes are heard. ABDOMEN: Soft, nontender, nondistended with good bowel sounds heard. BACK: No CVAT, no obvious deformity. EXTREMITIES: Without cyanosis, clubbing or edema. NEUROLOGICAL: Grossly nonfocal. Alert and oriented, moving all 4 extremities. CN not formally tested but appear grossly intact Skin: incision with packing on left gluteal fold with erythema and inflammation extending into perineum up left labia majora, multiple erythematous raised lesions along gluteal folds/labia suspicious for boils/pustules; large dry discoloration with noted demarcated boarder under breasts, flexural areas of arms, inguinal folds, and bilateral axilla Results & Data Results & Data Vital Signs (Past 12 Hours) Vital Signs Temp Pulse Pulse Resp BP BP Pulse Ox 10/23/23 16:32 101 H 10/23/23 15:19 92 H 20 134/78 95 10/23/23 14:46 37.4 C 109 H 20 134/78 100 O2 Del Method 10/23/23 16:32 10/23/23 15:19 Room Air 10/23/23 14:46 Room Air Laboratory Results Short CBC 10/23/23 10/23/23 10/23/23 Range/Units 15:00 15:40 17:01 WBC Cancelled 9.22 Hgb Cancelled 14.0 Hct Cancelled 42.3 Plt Count Cancelled 231 BMP 10/23/23 10/23/23 10/23/23 15:00 15:52 17:01 Sodium TNP Cancelled 135 L Potassium TNP Cancelled 4.2 Chloride 100 Carbon Dioxide 26 BUN 13 Creatinine 0.97 Glucose 87 Calcium 9.5 Medications Administered Home Medications Medication Instructions Recorded Confirmed Last Taken albuterol sulfate 90 mcg/actuation 90 mcg inhalation QID PRN 10/23/23 10/23/23 Unknown aerosol inhaler sob/wheezing cetirizine 10 mg tablet 10 mg PO DAILY 10/23/23 10/23/23 Unknown Active Medications Generic Name Dose Route Start Last Admin Trade Name Freq PRN Reason Stop Dose Admin Hydromorphone HCl 0.5 mg 10/23/23 17:18 10/23/23 17:51 Hydromorphone Inj 0.5 Mg/0.5 Ml Syr IV 11/06/23 17:17 0.5 mg Q6H PRN Administration Severe Pain (Scale 7, 8, 9,10) Daptomycin 300 mg/ Syringe 6 mls @ 3 mls/min 10/23/23 17:00 10/23/23 17:29 IV 10/25/23 16:59 3 mls/min Q24H LIANNA Administration Protocol (1) Cellulitis Laterality: left Site of cellulitis: extremity Site of cellulitis of extremity: lower extremity Qualified Code(s): L03.116 - Cellulitis of left lower limb
[2023-10-23 17:26] LABS: Basophils # (auto) 0.04 K/uL (0.00-0.20); Basophils % (auto) 0.4 %; Eosinophils # (auto) 0.45 K/uL (0.00-0.50); Eosinophils % (auto) 4.9 %; Hematocrit (blood only) 42.3 % (37.0-47.0); Immature Granulocytes # (auto) 0.03 K/uL (0.01-0.20); Immature Granulocytes % (auto) 0.3 %; Lymphocytes # (auto) 1.13 K/uL (1.20-3.40); Lymphocytes % (auto) 12.3 %; Mean Corpuscular Hemoglobin 29.4 pg (25.0-34.0); Mean Corpuscular Hgb Conc 33.1 g/dL (32.0-36.0); Mean Corpuscular Volume 88.9 fL (80.0-100.0); Mean Platelet Volume 9.8 fL (9.4-12.4); Monocytes # (auto) 0.74 K/uL (0.11-0.59); Neutrophils # (auto) 6.83 K/uL (1.40-6.50); Neutrophils % (auto) 74.1 %; Platelet Count 231 K/uL (130-400); RDW Standard Deviation 42.7 fL (36.4-46.3); Red Blood Count 4.76 M/uL (4.20-5.40); White Blood Count 9.22 K/ul (4.8-10.8)
[2023-10-23] MEDS: DAPTOmycin 300 MG in SYRINGE 0 ML IV SCH (17:29)
[2023-10-23 17:43] LABS: Potassium 4.2 mmol/L (3.5-5.1)
[2023-10-23] MEDS: HYDROmorphone INJ 0.5 MG/0.5 ML SYR IV PRN (17:51)
[2023-10-23] MEDS ORDERED: ONDANSETRON INJ 2 MG/ML 2 ML VIAL IV PRN (18:54)
[2023-10-23] MEDS ORDERED: MAGNESIUM HYDROXIDE SUSP 30 ML UDC PO PRN (18:54)
[2023-10-23] MEDS ORDERED: ALUMINUM/MAGNESIUM SUSP 30 ML UDC PO PRN (18:54)
[2023-10-23] MEDS ORDERED: ALBUTEROL HFA 8 GM INHALER INH PRN (18:54)
[2023-10-23] MEDS: AMPICILLIN/SULBACTAM SOD 3,000 MG in SODIUM CHLOR 0.9% MINI-B 100 ML IV STA (19:12)
[2023-10-23] MEDS: ACETAMINOPHEN 325 MG TAB PO PRN (20:48)
[2023-10-23] MEDS: HEPARIN SOD 5,000 UNIT/0.5 ML VIAL SQ SCH (20:49)
[2023-10-23] MEDS: PIPERACILLIN/TAZOBACTAM 4.5 GM in DEXTROSE 5% MINI-B 100 ML IV ONE (20:50)
[2023-10-23] MEDS: NICOTINE 21 MG/24 HR TDSY TD SCH (22:26)
[2023-10-24] MEDS: PIPERACILLIN/TAZOBACTAM 4.5 GM in DEXTROSE 5% MINI-B 100 ML IV SCH (01:32)
[2023-10-24] MEDS: oxyCODONE HCL IR 5 MG TAB (IMMEDIATE RELEASE) PO PRN (05:29)
[2023-10-24 06:35] LABS: Basophils # (auto) 0.05 K/uL (0.00-0.20); Basophils % (auto) 0.6 %; Eosinophils # (auto) 0.45 K/uL (0.00-0.50); Eosinophils % (auto) 5.2 %; Hematocrit (blood only) 40.1 % (37.0-47.0); Hemoglobin 13.2 g/dl (12.0-16.0); Immature Granulocytes # (auto) 0.03 K/uL (0.01-0.20); Immature Granulocytes % (auto) 0.3 %; Lymphocytes % (auto) 16.3 %; Mean Corpuscular Hemoglobin 29.4 pg (25.0-34.0); Mean Corpuscular Hgb Conc 32.9 g/dL (32.0-36.0); Mean Corpuscular Volume 89.3 fL (80.0-100.0); Mean Platelet Volume 9.9 fL (9.4-12.4); Monocytes # (auto) 0.94 K/uL (0.11-0.59); Neutrophils # (auto) 5.71 K/uL (1.40-6.50); Neutrophils % (auto) 66.6 %; Platelet Count 243 K/uL (130-400); RDW Coefficient of Variation 12.9 % (11.5-14.5); RDW Standard Deviation 42.3 fL (36.4-46.3); Red Blood Count 4.49 M/uL (4.20-5.40); White Blood Count 8.58 K/ul (4.8-10.8)
[2023-10-24 07:01] LABS: Albumin Globulin Ratio 1.2 (0.9-2); Albumin Level 3.7 gm/dl (3.4-5.0); BUN Creatinine Ratio 10.9 (10-20); Bilirubin,Total 0.5 mg/dl (0.2-1.0); Creatinine Clr Calc Pharmacy 81.7 ml/min; Est GFR (African American) 76.2 ml/min; Est GFR (Non-African American) 65.8 ml/min; Globulin 3.2 gm/dl (2.5-4.0); Total Protein 6.9 gm/dl (6.0-8.3)
[2023-10-24] MEDS ORDERED: MoRPHine SULFATE 2 MG/ML CARP IV PRN (07:42)
--- NOTE | 2023-10-24 07:53 | Surgery Consultation ---
Date of Consultation October 24, 2023 Assessment & Plan (1) Cellulitis: (2) Abscess: Plan 47 yo female with history of skin abscess/infections presented to ED on 10/22/2023 with abscess/cellulitis of left inner upper thigh. Underwent I&D and discharged. Presented back to ED last evening with increasing pain. CT of pelvis showing residual abscess deep to dermis measuring 4.4 cm. Exam consistent with residual abscess and cellulitis of left upper inner thigh. Patient would benefit from I&D in operating room given area and residual abscess under local and MAC anesthesia. Discussed procedure and risks with patient. May require wound care nurse consult , possible wound vac pending surgical findings. Keep NPO. Continue pain management. Continue IV Antibiotics. Will plan to take to operating room today for I&D of left inner thigh abscess. Will obtain consent in preop with Dr. Hurd. Supervising Physician Co-Signing Physician Notes I have seen and examined the patient personally and agree with the above assessment and plan. In brief, she was seen in the emergency department on Tuesday and had an abscess drainage of her left inner thigh. The pain has worsened, and she Kizzy presents. She has a more anterior 4 cm abscess that will need drainage. I have discussed the risks and benefits of the operation with her, and she is agreeable to proceed. Consent has been obtained. We will take her to the operating room at the earliest convenience. History of Present Illness Reason for Consultation: left thigh abscess Attending Physician: Doug Kim MD History of Present Illness Verenice is a 47 yo female with history of morbid obesity, asthma, epigastric pain, breast abscess, abscess of skin, RODNEY, who presented to ED on Tuesday10/22/2023 with swelling and itching of the left upper inner thigh that she st arted noticing on evening. Denies of any fever or chills. History of prior skin abscess/infections requiring drainage and packing with wound care. Underwent I&D in the ER on Tuesday and was discharged home however presented back to ED with increasing pain. CT scan of pelvis showing residual abscess measuring 4.4 cm of the left upper inner medial thigh. Denies of any prior surgical intervention for skin infections. No blood thinning agents. Allergies Allergy/AdvReac Type Severity Reaction Status Date / Time clindamycin Allergy Severe Anaphylaxis Verified 10/23/23 17:09 Sulfa (Sulfonamide Allergy Severe Itching Verified 10/23/23 17:09 Antibiotics) rash cat dander Allergy Intermediate sneezing Verified 10/23/23 17:09 and "breaking out." dog dander Allergy Intermediate sneezing Verified 10/23/23 17:09 and "breaking out." orange Allergy Intermediate BLISTERS Verified 10/23/23 17:13 ON FACE sulfamethoxazole Allergy Intermediate ITCHY RASH Verified 10/23/23 17:09 [From Bactrim] tree and shrub pollen Allergy Intermediate Congested Verified 10/23/23 17:09 trimethoprim [From Bactrim] Allergy Intermediate ITCHY RASH Verified 10/23/23 17:09 oxycodone AdvReac Intermediate NAUSEA/VOMI Verified 10/23/23 17:09 TING Home Medications Medication Instructions Recorded Confirmed Type albuterol sulfate 90 mcg/actuation 90 mcg inhalation QID PRN 10/23/23 10/23/23 History aerosol inhaler sob/wheezing cetirizine 10 mg tablet 10 mg PO DAILY 10/23/23 10/23/23 History Patient History Surgical History No pertinent past surgical history Social History Smoking Status: Heavy tobacco smoker Tobacco Type: Cigarettes Cigarettes Per Day: 30 cigarettes (1 1/2 pack) per day; Second Hand Exposure: Yes; Do You Dip or Chew Tobacco: No; Tobacco Cessation Education Requested by Patient: Yes Hx Alcohol Use: Yes Alcohol type: hard liquor and other Hx Substance Use: No Preferred Language: Yakut Communication Ability: Effective Staff Air Tactical Officer Required: No Beliefs That Will Affect Care: None marital status: Current Living Situation: Spouse How many Children do You have: 0 Feels Safe at Home: Yes Safety Concerns: Feels Safe At This Time Assistive Devices: Glasses Review of Systems Review of Systems: All systems reviewed & are unremarkable except as noted in HPI & below Physical Exam Constitutional: WD/WN, vitals as above + morbidly obese and cooperative; no acute distress and not ill appearing Respiratory: normal respiratory effort; no respiratory distress Skin: Left upper medial thigh with induration, erythema and fluctuance. Tenderness to palpation. Psychiatric: A+Ox3, euthymic affect Results & Data Vital Signs (Past 12 Hours) Vital Signs Temp Pulse Pulse Resp BP BP Pulse Ox 10/24/23 07:32 36.9 C 74 16 120/67 91 10/24/23 04:29 37.1 C 81 20 97/64 L 93 10/24/23 02:28 10/24/23 02:28 36.8 C 82 18 114/74 91 10/23/23 23:54 36.9 C 85 20 124/78 97 10/23/23 22:23 78 10/23/23 20:10 82 O2 Del Method 10/24/23 07:32 Room Air 10/24/23 04:29 Room Air 10/24/23 02:28 Room Air 10/24/23 02:28 Room Air 10/23/23 23:54 Room Air 10/23/23 22:23 10/23/23 20:10 Laboratory Results 10/24/23 10/23/23 10/23/23 Range/Units 06:12 17:01 15:52 WBC 8.58 9.22 RBC 4.49 4.76 Hgb 13.2 14.0 Hct 40.1 42.3 MCV 89.3 88.9 MCH 29.4 29.4 MCHC 32.9 33.1 RDW Std Deviation 42.3 42.7 RDW Coeff of Gina 12.9 13.0 Plt Count 243 231 MPV 9.9 9.8 Immature Gran % (Auto) 0.3 0.3 Neut % (Auto) 66.6 74.1 Lymph % (Auto) 16.3 12.3 [place] % (Auto) 11.0 8.0 Eos % (Auto) 5.2 4.9 Baso % (Auto) 0.6 0.4 Neut # (Auto) 5.71 6.83 H Lymph # (Auto) 1.40 1.13 L [place] # (Auto) 0.94 H 0.74 H Eos # (Auto) 0.45 0.45 Baso # (Auto) 0.05 0.04 Immature Gran # (Auto) 0.03 0.03 Absolute Nucleated RBC Nucleated RBC % (auto) Neutrophils % (Manual) Band Neutrophils % Lymphocytes % (Manual) Prolymphocyte % Reactive Lymphs % (Man) Monocytes % (Manual) Eosinophils % (Manual) Basophils % (Manual) Metamyelocytes % (Man) Myelocytes % (Man) Promyelocytes % (Man) Blast Cells % (Manual) Plasma Cell % (Manual) Other Cells % Nucleated RBC % Neutrophils # (Manual) Band Neutrophils # Total Absolute Neuts Lymphocytes # (Manual) Prolymphocyte # Reactive Lymphs # Total Abs Lymphocytes Monocytes # (Manual) Eosinophils # (Manual) Basophils # (Manual) Metamyelocytes # (Man) Myelocytes # (Manual) Promyelocytes # (Man) Blast Cells # (Man) Plasma Cell # (Manual) Other Cells # Nucleated RBCs # (Man) Hypersegmented Neuts Hyposegmented Neuts Hypogranular Neuts Large Granular Lymphs # Lrg Granular Lymphs Hairy Cells Smudge Cells Toxic Granulation Toxic Vacuolation Dohle Bodies Raghav Rods Platelet Estimate Hypogranular Platelets Giant Platelets Platelet Satelliting RBC Morphology Polychromasia Hypochromasia Poikilocytosis Basophilic Stippling Anisocytosis Microcytosis Macrocytosis Spherocytes Pappenheimer Bodies Sickle Cells Target Cells Tear Drop Cells Ovalocytes Stomatocytes [place] Bodies Echinocytes Acanthocytes (Spur) Rouleaux RBC Agglutinates Schistocytes Sezary Cell Sodium 137 135 L Cancelled Potassium 4.0 4.2 Cancelled Chloride 103 (98-107) mmol/L Carbon Dioxide 27 (21-32) mmol/L Anion Gap 7 BUN 11 (6-23) mg/dl Creatinine 1.01 (0.6-1.2) mg/dl Est Cr Clr Drug Dosing 81.7 ml/min Est GFR ( Amer) 76.2 ml/min Est GFR (Non-Af Amer) 65.8 ml/min BUN/Creatinine Ratio 10.9 (10-20) Glucose 110 H (70-99(Fasting)) mg/dl Lactate (0.4-2.0) mmol/L Calcium 9.0 (8.6-10.3) mg/dl Magnesium 2.0 (1.7-2.4) mg/dl Total Bilirubin 0.5 (0.2-1.0) mg/dl AST 24 (13-39) U/L ALT 32 (7-52) U/L Alkaline Phosphatase 76 (34-104) U/L Total Protein 6.9 (6.0-8.3) gm/dl Albumin 3.7 (3.4-5.0) gm/dl Globulin 3.2 (2.5-4.0) gm/dl Albumin/Globulin Ratio 1.2 (0.9-2) Blood Parasites ID 10/23/23 10/23/23 Range/Units 15:40 15:00 WBC Cancelled RBC Cancelled Hgb Cancelled Hct Cancelled MCV Cancelled MCH Cancelled MCHC Cancelled RDW Std Deviation Cancelled RDW Coeff of Gina Cancelled Plt Count Cancelled MPV Cancelled Immature Gran % (Auto) Cancelled Neut % (Auto) Cancelled Lymph % (Auto) Cancelled [place] % (Auto) Cancelled Eos % (Auto) Cancelled Baso % (Auto) Cancelled Neut # (Auto) Cancelled Lymph # (Auto) Cancelled [place] # (Auto) Cancelled Eos # (Auto) Cancelled Baso # (Auto) Cancelled Immature Gran # (Auto) Cancelled Absolute Nucleated RBC CENTRAL SUPPLY TECH Cancelled Nucleated RBC % (auto) CENTRAL SUPPLY TECH Cancelled Neutrophils % (Manual) CENTRAL SUPPLY TECH Cancelled Band Neutrophils % CENTRAL SUPPLY TECH Cancelled Lymphocytes % (Manual) CENTRAL SUPPLY TECH Cancelled Prolymphocyte % CENTRAL SUPPLY TECH Cancelled Reactive Lymphs % (Man) CENTRAL SUPPLY TECH Cancelled Monocytes % (Manual) CENTRAL SUPPLY TECH Cancelled Eosinophils % (Manual) CENTRAL SUPPLY TECH Cancelled Basophils % (Manual) CENTRAL SUPPLY TECH Cancelled Metamyelocytes % (Man) CENTRAL SUPPLY TECH Cancelled Myelocytes % (Man) CENTRAL SUPPLY TECH Cancelled Promyelocytes % (Man) CENTRAL SUPPLY TECH Cancelled Blast Cells % (Manual) CENTRAL SUPPLY TECH Cancelled Plasma Cell % (Manual) CENTRAL SUPPLY TECH Cancelled Other Cells % CENTRAL SUPPLY TECH Cancelled Nucleated RBC % CENTRAL SUPPLY TECH Cancelled Neutrophils # (Manual) CENTRAL SUPPLY TECH Cancelled Band Neutrophils # CENTRAL SUPPLY TECH Cancelled Total Absolute Neuts CENTRAL SUPPLY TECH Cancelled Lymphocytes # (Manual) CENTRAL SUPPLY TECH Cancelled Prolymphocyte # CENTRAL SUPPLY TECH Cancelled Reactive Lymphs # CENTRAL SUPPLY TECH Cancelled Total Abs Lymphocytes CENTRAL SUPPLY TECH Cancelled Monocytes # (Manual) CENTRAL SUPPLY TECH Cancelled Eosinophils # (Manual) CENTRAL SUPPLY TECH Cancelled Basophils # (Manual) CENTRAL SUPPLY TECH Cancelled Metamyelocytes # (Man) CENTRAL SUPPLY TECH Cancelled Myelocytes # (Manual) CENTRAL SUPPLY TECH Cancelled Promyelocytes # (Man) CENTRAL SUPPLY TECH Cancelled Blast Cells # (Man) CENTRAL SUPPLY TECH Cancelled Plasma Cell # (Manual) CENTRAL SUPPLY TECH Cancelled Other Cells # CENTRAL SUPPLY TECH Cancelled Nucleated RBCs # (Man) CENTRAL SUPPLY TECH Cancelled Hypersegmented Neuts CENTRAL SUPPLY TECH Cancelled Hyposegmented Neuts CENTRAL SUPPLY TECH Cancelled Hypogranular Neuts CENTRAL SUPPLY TECH Cancelled Large Granular Lymphs CENTRAL SUPPLY TECH Cancelled # Lrg Granular Lymphs CENTRAL SUPPLY TECH Cancelled Hairy Cells CENTRAL SUPPLY TECH Cancelled Smudge Cells CENTRAL SUPPLY TECH Cancelled Toxic Granulation CENTRAL SUPPLY TECH Cancelled Toxic Vacuolation CENTRAL SUPPLY TECH Cancelled Dohle Bodies CENTRAL SUPPLY TECH Cancelled Raghav Rods CENTRAL SUPPLY TECH Cancelled Platelet Estimate CENTRAL SUPPLY TECH Cancelled Hypogranular Platelets CENTRAL SUPPLY TECH Cancelled Giant Platelets CENTRAL SUPPLY TECH Cancelled Platelet Satelliting CENTRAL SUPPLY TECH Cancelled RBC Morphology CENTRAL SUPPLY TECH Cancelled Polychromasia CENTRAL SUPPLY TECH Cancelled Hypochromasia CENTRAL SUPPLY TECH Cancelled Poikilocytosis CENTRAL SUPPLY TECH Cancelled Basophilic Stippling CENTRAL SUPPLY TECH Cancelled Anisocytosis CENTRAL SUPPLY TECH Cancelled Microcytosis CENTRAL SUPPLY TECH Cancelled Macrocytosis CENTRAL SUPPLY TECH Cancelled Spherocytes CENTRAL SUPPLY TECH Cancelled Pappenheimer Bodies CENTRAL SUPPLY TECH Cancelled Sickle Cells CENTRAL SUPPLY TECH Cancelled Target Cells CENTRAL SUPPLY TECH Cancelled Tear Drop Cells CENTRAL SUPPLY TECH Cancelled Ovalocytes CENTRAL SUPPLY TECH Cancelled Stomatocytes CENTRAL SUPPLY TECH Cancelled [place] Bodies CENTRAL SUPPLY TECH Cancelled Echinocytes CENTRAL SUPPLY TECH Cancelled Acanthocytes (Spur) CENTRAL SUPPLY TECH Cancelled Rouleaux CENTRAL SUPPLY TECH Cancelled RBC Agglutinates CENTRAL SUPPLY TECH Cancelled Schistocytes CENTRAL SUPPLY TECH Cancelled Sezary Cell CENTRAL SUPPLY TECH Cancelled Sodium TNP Potassium TNP Chloride 100 (98-107) mmol/L Carbon Dioxide 26 (21-32) mmol/L Anion Gap TNP BUN 13 (6-23) mg/dl Creatinine 0.97 (0.6-1.2) mg/dl Est Cr Clr Drug Dosing 85.7 ml/min Est GFR ( Amer) 80.0 ml/min Est GFR (Non-Af Amer) 69.1 ml/min BUN/Creatinine Ratio 13.4 (10-20) Glucose 87 (70-99(Fasting)) mg/dl Lactate 1.6 (0.4-2.0) mmol/L Calcium 9.5 (8.6-10.3) mg/dl Magnesium (1.7-2.4) mg/dl Total Bilirubin (0.2-1.0) mg/dl AST (13-39) U/L ALT (7-52) U/L Alkaline Phosphatase (34-104) U/L Total Protein (6.0-8.3) gm/dl Albumin (3.4-5.0) gm/dl Globulin (2.5-4.0) gm/dl Albumin/Globulin Ratio (0.9-2) Blood Parasites ID CENTRAL SUPPLY TECH Cancelled Diagnostic Findings CT SCAN OF THE PELVIS WITH IV CONTRAST CLINICAL HISTORY: Abscess status post recent drainage. COMPARISON STUDY: Pelvic CT dated 08/25/2023. TECHNIQUE: Following the IV administration of 94 cc of Optiray 320, CT scan of the pelvis is performed from the pelvic inlet to the proximal femora. Images are reviewed in the axial, sagittal, and coronal planes. IV contrast was administered without complication. A dose lowering technique was utilized adhering to the principles of ALARA. CT DOSE: 1663.67 mGy.cm FINDINGS: The bladder, uterus, and adnexa are normal as visualized noting small bilateral ovarian follicles. There is no free fluid or intraperitoneal free air identified in the pelvis. The imaged bowel loops are normal in caliber with no evidence of obstruction. A normal appendix is seen in the right lower quadrant. There is a fat-containing umbilical hernia. No pelvic sidewall lymphadenopathy is identified. There are prominent left inguinal lymph nodes which measure up to 2.5 cm in length. These are likely reactive. There is infiltration of the left perineal soft tissues typical for sialitis. A fluid collection is seen in the left perineum/medial upper thigh below the labia on axial image #[id number]. This is just deep to the dermal surface and measures 2.3 x 4.4 x 1.8 cm. This is typical in appearance for abscess. There is a focus of subcutaneous gas and infiltration/fluid at the dermal surface seen more posteriorly in the right upper thigh on image #[id number]. This may represent the site of a reportedly drained abscess. No additional foci of soft tissue gas are identified. The perianal and gluteal soft tissues are normal in appearance. The bony pelvis appears intact. No lytic or blastic lesion is seen. Sclerotic change is noted in the sacroiliac joints. The regional musculature is normal in appearance. IMPRESSION: 1. There is evidence of cellulitis in the soft tissues of the left perineum/medial upper thigh. 2. There is a 4.4 cm fluid collection in the left anterior perineum/upper thigh below the labia that is typical for abscess. 3. Inflammation the small foci of soft tissue gas and trace fluid posterior to this collection in the medial upper thigh likely represents the site of a reportedly drained abscess. No additional foci of soft tissue gas are identified and necrotizing infection is considered much less likely. Correlate clinically. 4. The pelvic viscera is normal in appearance. 5. Additional findings as above. ACT 112: Negative or not required by law. (1) Cellulitis Laterality: left Site of cellulitis: extremity Site of cellulitis of extr emity: lower extremity Qualified Code(s): L03.116 - Cellulitis of left lower limb
[2023-10-24] MEDS: MoRPHine SULFATE 4 MG/ML 1 ML CARP\\VIAL IV PRN (08:01)
--- NOTE | 2023-10-24 08:02 | Hospitalist Progress Note ---
Date of Service October 24, 2023 Assessment & Plan (1) Cellulitis: (2) Infected sebaceous cyst of skin: Plan Ms. Hayes is a 47 year old F w/ asthma, NAFLD, morbid obesity, HLD, as well as prior skin abscesses requiring ID who presented to [facility] ED due to worsening pain from abscess s/p I&D on 10/21. Admitted for IV antibiotics given progression of abscess and discussion of possible surgical intervention. Large abscess in perineum / upper inner thigh Hx of Multiple abscesses c/f hidradenitis suppurativa CT pelvis with cellulitis and 4.4 cm fluid collection in the left anterior perineum/upper thigh below the labia that is typical for abscess Preliminary cultures with staph, however, given location and severity will pursue broad coverage until cultures result -Dapto/Zosyn -follow infectious work up Gen Surg on consulted - plan for OR - I&D today pain management Dermatitis in flexor areas historically put on multiple antifungals as op, suspicious for eczema as well stable at this time, patient would benefit op derm HLD reports noncompliance with medications Morbid obesity Hepatic steatosis -stable LFTs BMI 44 counselling for weight loss/lifestyle modifications Tobacco use Declined nicotine patch Asthma stable, chronic albuterol prn Allergic rhinitis Zyrtec qhs Major depressive disorder, recurrent, moderate Prescribed venlafaxine, doesn't take DVT ppx hpearin sq, SCDs PCP Calli Admission and Anticipated Discharge Date Admission Date: October 23, 2023 Subjective Pt seen in follow up of upper/ inner thigh abscess Gen. surgery consulted - plan for OR - I&D today Pt is currently laying in bed, in no acute distress Denies fever chills chest pain shortness of breath, abdominal pain Review of Systems Review of Systems: All systems reviewed & are unremarkable except as noted in Subjective Physical Exam Physical Exam: GENERAL: morbidly obese F in NAD HEENT: NC, AT. MMM. EOMI NECK: Supple HEART: RRR LUNGS: CTAB, moving air well. No crackles or wheezes are heard. ABDOMEN: Soft, nontender, obese, nondistended with + bowel sounds BACK: No CVAT, no obvious deformity. EXTREMITIES: no LE edema, moves extremities NEUROLOGICAL: Awake, alert and oriented, speech fluent, answers appropriately, moving all 4 extremities. Skin: incision with packing on left gluteal fold with erythema and inflammation extending into perineum up left labia majora, multiple erythematous raised lesions along gluteal folds/labia suspicious for boils/pustules Results & Data Results & Data Vital Signs (Past 12 Hours) Vital Signs Temp Pulse Pulse Resp BP BP Pulse Ox 10/24/23 07:32 36.9 C 74 16 120/67 91 10/24/23 04:29 37.1 C 81 20 97/64 L 93 10/24/23 02:28 10/24/23 02:28 36.8 C 82 18 114/74 91 10/23/23 23:54 36.9 C 85 20 124/78 97 10/23/23 22:23 78 10/23/23 20:10 82 O2 Del Method 10/24/23 07:32 Room Air 10/24/23 04:29 Room Air 10/24/23 02:28 Room Air 10/24/23 02:28 Room Air 10/23/23 23:54 Room Air 10/23/23 22:23 10/23/23 20:10 Laboratory Results 10/24/23 10/23/23 10/23/23 Range/Units 06:12 17:01 15:52 WBC 8.58 9.22 RBC 4.49 4.76 Hgb 13.2 14.0 Hct 40.1 42.3 MCV 89.3 88.9 MCH 29.4 29.4 MCHC 32.9 33.1 RDW Std Deviation 42.3 42.7 RDW Coeff of Gina 12.9 13.0 Plt Count 243 231 MPV 9.9 9.8 Immature Gran % (Auto) 0.3 0.3 Neut % (Auto) 66.6 74.1 Lymph % (Auto) 16.3 12.3 Graves % (Auto) 11.0 8.0 Eos % (Auto) 5.2 4.9 Baso % (Auto) 0.6 0.4 Neut # (Auto) 5.71 6.83 H Lymph # (Auto) 1.40 1.13 L Graves # (Auto) 0.94 H 0.74 H Eos # (Auto) 0.45 0.45 Baso # (Auto) 0.05 0.04 Immature Gran # (Auto) 0.03 0.03 Absolute Nucleated RBC Nucleated RBC % (auto) Neutrophils % (Manual) Band Neutrophils % Lymphocytes % (Manual) Prolymphocyte % Reactive Lymphs % (Man) Monocytes % (Manual) Eosinophils % (Manual) Basophils % (Manual) Metamyelocytes % (Man) Myelocytes % (Man) Promyelocytes % (Man) Blast Cells % (Manual) Plasma Cell % (Manual) Other Cells % Nucleated RBC % Neutrophils # (Manual) Band Neutrophils # Total Absolute Neuts Lymphocytes # (Manual) Prolymphocyte # Reactive Lymphs # Total Abs Lymphocytes Monocytes # (Manual) Eosinophils # (Manual) Basophils # (Manual) Metamyelocytes # (Man) Myelocytes # (Manual) Promyelocytes # (Man) Blast Cells # (Man) Plasma Cell # (Manual) Other Cells # Nucleated RBCs # (Man) Hypersegmented Neuts Hyposegmented Neuts Hypogranular Neuts Large Granular Lymphs # Lrg Granular Lymphs Hairy Cells Smudge Cells Toxic Granulation Toxic Vacuolation Dohle Bodies Raghav Rods Platelet Estimate Hypogranular Platelets Giant Platelets Platelet Satelliting RBC Morphology Polychromasia Hypochromasia Poikilocytosis Basophilic Stippling Anisocytosis Microcytosis Macrocytosis Spherocytes Pappenheimer Bodies Sickle Cells Target Cells Tear Drop Cells Ovalocytes Stomatocytes Blakely-Pageland Bodies Echinocytes Acanthocytes (Spur) Rouleaux RBC Agglutinates Schistocytes Sezary Cell Sodium 137 135 L Cancelled Potassium 4.0 4.2 Cancelled Chloride 103 (98-107) mmol/L Carbon Dioxide 27 (21-32) mmol/L Anion Gap 7 BUN 11 (6-23) mg/dl Creatinine 1.01 (0.6-1.2) mg/dl Est Cr Clr Drug Dosing 81.7 ml/min Est GFR ( Amer) 76.2 ml/min Est GFR (Non-Af Amer) 65.8 ml/min BUN/Creatinine Ratio 10.9 (10-20) Glucose 110 H (70-99(Fasting)) mg/dl Lactate (0.4-2.0) mmol/L Calcium 9.0 (8.6-10.3) mg/dl Magnesium 2.0 (1.7-2.4) mg/dl Total Bilirubin 0.5 (0.2-1.0) mg/dl AST 24 (13-39) U/L ALT 32 (7-52) U/L Alkaline Phosphatase 76 (34-104) U/L Total Protein 6.9 (6.0-8.3) gm/dl Albumin 3.7 (3.4-5.0) gm/dl Globulin 3.2 (2.5-4.0) gm/dl Albumin/Globulin Ratio 1.2 (0.9-2) Blood Parasites ID 10/23/23 10/23/23 Range/Units 15:40 15:00 WBC Cancelled RBC Cancelled Hgb Cancelled Hct Cancelled MCV Cancelled MCH Cancelled MCHC Cancelled RDW Std Deviation Cancelled RDW Coeff of Gina Cancelled Plt Count Cancelled MPV Cancelled Immature Gran % (Auto) Cancelled Neut % (Auto) Cancelled Lymph % (Auto) Cancelled Graves % (Auto) Cancelled Eos % (Auto) Cancelled Baso % (Auto) Cancelled Neut # (Auto) Cancelled Lymph # (Auto) Cancelled Graves # (Auto) Cancelled Eos # (Auto) Cancelled Baso # (Auto) Cancelled Immature Gran # (Auto) Cancelled Absolute Nucleated RBC SPANISH LITERATURE PROFESSOR Cancelled Nucleated RBC % (auto) SPANISH LITERATURE PROFESSOR Cancelled Neutrophils % (Manual) SPANISH LITERATURE PROFESSOR Cancelled Band Neutrophils % SPANISH LITERATURE PROFESSOR Cancelled Lymphocytes % (Manual) SPANISH LITERATURE PROFESSOR Cancelled Prolymphocyte % SPANISH LITERATURE PROFESSOR Cancelled Reactive Lymphs % (Man) SPANISH LITERATURE PROFESSOR Cancelled Monocytes % (Manual) SPANISH LITERATURE PROFESSOR Cancelled Eosinophils % (Manual) SPANISH LITERATURE PROFESSOR Cancelled Basophils % (Manual) SPANISH LITERATURE PROFESSOR Cancelled Metamyelocytes % (Man) SPANISH LITERATURE PROFESSOR Cancelled Myelocytes % (Man) SPANISH LITERATURE PROFESSOR Cancelled Promyelocytes % (Man) SPANISH LITERATURE PROFESSOR Cancelled Blast Cells % (Manual) SPANISH LITERATURE PROFESSOR Cancelled Plasma Cell % (Manual) SPANISH LITERATURE PROFESSOR Cancelled Other Cells % SPANISH LITERATURE PROFESSOR Cancelled Nucleated RBC % SPANISH LITERATURE PROFESSOR Cancelled Neutrophils # (Manual) SPANISH LITERATURE PROFESSOR Cancelled Band Neutrophils # SPANISH LITERATURE PROFESSOR Cancelled Total Absolute Neuts SPANISH LITERATURE PROFESSOR Cancelled Lymphocytes # (Manual) SPANISH LITERATURE PROFESSOR Cancelled Prolymphocyte # SPANISH LITERATURE PROFESSOR Cancelled Reactive Lymphs # SPANISH LITERATURE PROFESSOR Cancelled Total Abs Lymphocytes SPANISH LITERATURE PROFESSOR Cancelled Monocytes # (Manual) SPANISH LITERATURE PROFESSOR Cancelled Eosinophils # (Manual) SPANISH LITERATURE PROFESSOR Cancelled Basophils # (Manual) SPANISH LITERATURE PROFESSOR Cancelled Metamyelocytes # (Man) SPANISH LITERATURE PROFESSOR Cancelled Myelocytes # (Manual) SPANISH LITERATURE PROFESSOR Cancelled Promyelocytes # (Man) SPANISH LITERATURE PROFESSOR Cancelled Blast Cells # (Man) SPANISH LITERATURE PROFESSOR Cancelled Plasma Cell # (Manual) SPANISH LITERATURE PROFESSOR Cancelled Other Cells # SPANISH LITERATURE PROFESSOR Cancelled Nucleated RBCs # (Man) SPANISH LITERATURE PROFESSOR Cancelled Hypersegmented Neuts SPANISH LITERATURE PROFESSOR Cancelled Hyposegmented Neuts SPANISH LITERATURE PROFESSOR Cancelled Hypogranular Neuts SPANISH LITERATURE PROFESSOR Cancelled Large Granular Lymphs SPANISH LITERATURE PROFESSOR Cancelled # Lrg Granular Lymphs SPANISH LITERATURE PROFESSOR Cancelled Hairy Cells SPANISH LITERATURE PROFESSOR Cancelled Smudge Cells SPANISH LITERATURE PROFESSOR Cancelled Toxic Granulation SPANISH LITERATURE PROFESSOR Cancelled Toxic Vacuolation SPANISH LITERATURE PROFESSOR Cancelled Dohle Bodies SPANISH LITERATURE PROFESSOR Cancelled Raghav Rods SPANISH LITERATURE PROFESSOR Cancelled Platelet Estimate SPANISH LITERATURE PROFESSOR Cancelled Hypogranular Platelets SPANISH LITERATURE PROFESSOR Cancelled Giant Platelets SPANISH LITERATURE PROFESSOR Cancelled Platelet Satelliting SPANISH LITERATURE PROFESSOR Cancelled RBC Morphology SPANISH LITERATURE PROFESSOR Cancelled Polychromasia SPANISH LITERATURE PROFESSOR Cancelled Hypochromasia SPANISH LITERATURE PROFESSOR Cancelled Poikilocytosis SPANISH LITERATURE PROFESSOR Cancelled Basophilic Stippling SPANISH LITERATURE PROFESSOR Cancelled Anisocytosis SPANISH LITERATURE PROFESSOR Cancelled Microcytosis SPANISH LITERATURE PROFESSOR Cancelled Macrocytosis SPANISH LITERATURE PROFESSOR Cancelled Spherocytes SPANISH LITERATURE PROFESSOR Cancelled Pappenheimer Bodies SPANISH LITERATURE PROFESSOR Cancelled Sickle Cells SPANISH LITERATURE PROFESSOR Cancelled Target Cells SPANISH LITERATURE PROFESSOR Cancelled Tear Drop Cells SPANISH LITERATURE PROFESSOR Cancelled Ovalocytes SPANISH LITERATURE PROFESSOR Cancelled Stomatocytes SPANISH LITERATURE PROFESSOR Cancelled Blakely-Pageland Bodies SPANISH LITERATURE PROFESSOR Cancelled Echinocytes SPANISH LITERATURE PROFESSOR Cancelled Acanthocytes (Spur) SPANISH LITERATURE PROFESSOR Cancelled Rouleaux SPANISH LITERATURE PROFESSOR Cancelled RBC Agglutinates SPANISH LITERATURE PROFESSOR Cancelled Schistocytes SPANISH LITERATURE PROFESSOR Cancelled Sezary Cell SPANISH LITERATURE PROFESSOR Cancelled Sodium TNP Potassium TNP Chloride 100 (98-107) mmol/L Carbon Dioxide 26 (21-32) mmol/L Anion Gap TNP BUN 13 (6-23) mg/dl Creatinine 0.97 (0.6-1.2) mg/dl Est Cr Clr Drug Dosing 85.7 ml/min Est GFR ( Amer) 80.0 ml/min Est GFR (Non-Af Amer) 69.1 ml/min BUN/Creatinine Ratio 13.4 (10-20) Glucose 87 (70-99(Fasting)) mg/dl Lactate 1.6 (0.4-2.0) mmol/L Calcium 9.5 (8.6-10.3) mg/dl Magnesium (1.7-2.4) mg/dl Total Bilirubin (0.2-1.0) mg/dl AST (13-39) U/L ALT (7-52) U/L Alkaline Phosphatase (34-104) U/L Total Protein (6.0-8.3) gm/dl Albumin (3.4-5.0) gm/dl Globulin (2.5-4.0) gm/dl Albumin/Globulin Ratio (0.9-2) Blood Parasites ID SPANISH LITERATURE PROFESSOR Cancelled Medications Administered Current Inpatient Medications Acetaminophen (Acetaminophen 325 Mg Tab) 650 mg PO Q4H PRN PRN Reason: Pain or Fever Stop: 11/22/23 18:53 Last Admin: 10/24/23 01:41 Dose: 650 mg Al Hydrox/Mg Hydrox/Simethicone (Aluminum/Magnesium Susp 30 Ml Udc) 15 ml PO Q4H PRN PRN Reason: Dyspepsia Stop: 11/22/23 18:53 Albuterol (Albuterol Hfa 8 Gm Inhaler) 2 puffs INH QID PRN PRN Reason: sob/wheezing Stop: 11/22/23 18:53 Cetirizine HCl (Cetirizine Hcl 10 Mg Tablet) 10 mg PO DAILY [facility] Stop: 11/23/23 08:59 Heparin Sodium (Porcine) (Heparin Sod 5,000 Unit/0.5 Ml Vial) 7,500 units SQ Q12 LIANNA Stop: 11/22/23 20:59 Last Admin: 10/23/23 20:49 Dose: 7,500 units Daptomycin 300 mg/ Syringe 6 mls @ 3 mls/min IV Q24H [facility]; Protocol Stop: 10/25/23 16:59 Last Admin: 10/23/23 17:29 Dose: 3 mls/min Piperacillin Sod/Tazobactam (Sod 4.5 gm/ Dextrose) 100 mls @ 25 mls/hr IV Q8H [facility]; Protocol Stop: 10/31/23 00:59 Last Infusion: 10/24/23 05:32 Dose: Infused Lactobacillus Acidophilus (Advanced Probiotic 625 Mg Capsule) 1,250 mg PO DAILY [facility] Stop: 11/23/23 08:59 Magnesium Hydroxide (Magnesium Hydroxide Susp 30 Ml Udc) 30 ml PO Q12H PRN PRN Reason: Constipation Stop: 11/22/23 18:53 Miscellaneous (Remove Nicoderm Patch) 1 each N/A DAILY@0859 [facility] Stop: 11/23/23 08:58 Morphine Sulfate (Morphine Sulfate 2 Mg/Ml Carp) 2 mg IV Q3H PRN PRN Reason: Moderate Pain (Scale 4, 5, 6) Stop: 11/07/23 07:41 Morphine Sulfate (Morphine Sulfate 4 Mg/Ml 1 Ml Carp\Vial) 4 mg IV Q3H PRN PRN Reason: Severe Pain (Scale 7, 8, 9,10) Stop: 11/07/23 07:41 Nicotine (Nicotine 21 Mg/24 Hr Tdsy) 1 patch TD DAILY [facility] Stop: 11/22/23 20:49 Last Admin: 10/23/23 22:26 Dose: 1 patch Ondansetron HCl (Ondansetron Inj 2 Mg/Ml 2 Ml Vial) 4 mg IV Q6H PRN PRN Reason: Nausea Stop: 11/22/23 18:53 Oxycodone HCl (Oxycodone Hcl Ir 5 Mg Tab (Immediate Release)) 5 mg PO Q6H PRN PRN Reason: Mild-Mod Pain (Scale 1-6) Stop: 11/06/23 17:17 Last Admin: 10/24/23 05:29 Dose: 5 mg Polyethylene Glycol (Polyethylene (Miralax) 17 Gm Pack) 17 gm PO DAILY PRN PRN Reason: Constipation Stop: 11/22/23 18:53 (1) Cellulitis Laterality: left Site of cellulitis: extremity Site of cellulitis of extremity: lower extremity Qualified Code(s): L03.116 - Cellulitis of left lower limb
[2023-10-24] MEDS: CETIRIZINE HCL 10 MG TABLET PO SCH (08:04)
[2023-10-24] MEDS: ADVANCED PROBIOTIC 625 MG CAPSULE PO SCH (08:05)
[2023-10-24] MEDS ORDERED: ATROPINE SULFATE 0.1 MG/ML 10ML SYR IV PRN ×2 (10:19→11:12)
[2023-10-24] MEDS ORDERED: fentaNYL citrate PF 100 MCG/2 ML VIAL IV PRN (10:19)
[2023-10-24] MEDS ORDERED: ONDANSETRON INJ 2 MG/ML 2 ML VIAL IV PRN (10:19)
[2023-10-24] MEDS ORDERED: ePHEDrine sulfate 50 MG/ML AMP IV PRN ×2 (10:19→11:12)
--- NOTE | 2023-10-24 10:19 | Anesthesiology Consultation ---
Date of Service October 24, 2023 Assessment & Plan (1) Encounter for pre-operative examination: Chart Review Chart Review: Acceptable Risk for Surgery and Patient NOT seen in Pre Admission Testing Consults Requested none History Surgery Operation Date: 10/24/23 07:00 Proposed Procedures p Incision and Drainage Left Thigh Abscess - Tank Hurd MD Height/Weight Height: 5 ft 3 in Weight: 111.3 kg Allergies Allergy/AdvReac Type Severity Reaction Status Date / Time clindamycin Allergy Severe Anaphylaxis Verified 10/23/23 17:09 Sulfa (Sulfonamide Allergy Severe Itching Verified 10/23/23 17:09 Antibiotics) rash cat dander Allergy Intermediate sneezing Verified 10/23/23 17:09 and "breaking out." dog dander Allergy Intermediate sneezing Verified 10/23/23 17:09 and "breaking out." orange Allergy Intermediate BLISTERS Verified 10/23/23 17:13 ON FACE sulfamethoxazole Allergy Intermediate ITCHY RASH Verified 10/23/23 17:09 [From Bactrim] tree and shrub pollen Allergy Intermediate Congested Verified 10/23/23 17:09 trimethoprim [From Bactrim] Allergy Intermediate ITCHY RASH Verified 10/23/23 17:09 oxycodone AdvReac Intermediate NAUSEA/VOMI Verified 10/23/23 17:09 TING Medications Home Medications Medication Instructions Recorded Confirmed Last Taken albuterol sulfate 90 mcg/actuation 90 mcg inhalation QID PRN 10/23/23 10/23/23 Unknown aerosol inhaler sob/wheezing cetirizine 10 mg tablet 10 mg PO DAILY 10/23/23 10/23/23 Unknown Active Medications Generic Name Dose Route Start Last Admin Trade Name Carlos Aq PRN Reason Stop Dose Admin Acetaminophen 650 mg 10/23/23 18:54 10/24/23 01:41 Acetaminophen 325 Mg Tab PO 11/22/23 18:53 650 mg Q4H PRN Administration Pain or Fever Cetirizine HCl 10 mg 10/24/23 09:00 10/24/23 08:04 Cetirizine Hcl 10 Mg Tablet PO 11/23/23 08:59 Not Given DAILY [facility] Heparin Sodium (Porcine) 7,500 units 10/23/23 21:00 10/24/23 08:05 Heparin Sod 5,000 Unit/0.5 Ml Vial SQ 11/22/23 20:59 Not Given Q12 LIANNA Daptomycin 300 mg/ Syringe 6 mls @ 3 mls/min 10/23/23 17:00 10/23/23 17:29 IV 10/25/23 16:59 3 mls/min Q24H [facility]ANNA Administration Protocol Piperacillin Sod/Tazobactam 100 mls @ 25 mls/hr 10/24/23 01:00 10/24/23 08:06 Sod 4.5 gm/ Dextrose IV 10/31/23 00:59 25 mls/hr Q8H [facility]ANNA Administration Protocol Lactobacillus Acidophilus 1,250 mg 10/24/23 09:00 10/24/23 08:05 Advanced Probiotic 625 Mg Capsule PO 11/23/23 08:59 Not Given DAILY [facility]AN[facility] Miscellaneous 1 each 10/24/23 08:59 10/24/23 08:04 Remove Nicoderm Patch N/A 11/23/23 08:58 1 each DAILY@0859 [facility] Administration Morphine Sulfate 4 mg 10/24/23 07:42 10/24/23 08:01 Morphine Sulfate 4 Mg/Ml 1 Ml Carp\\Vial IV 11/07/23 07:41 4 mg Q3H PRN Administration Severe Pain (Scale 7, 8, 9,10) Nicotine 1 patch 10/23/23 20:50 10/24/23 08:06 Nicotine 21 Mg/24 Hr Tdsy TD 11/22/23 20:49 1 patch DAILY [facility] Administration Oxycodone HCl 5 mg 10/23/23 17:18 10/24/23 05:29 Oxycodone Hcl Ir 5 Mg Tab (Immediate Release) PO 11/06/23 17:17 5 mg Q6H PRN Administration Mild-Mod Pain (Scale 1-6) NPO Date Last Intake of Fluids: 10/23/23 Time Last Intake of Fluids: 23:00 Last Intake of Fluids Comment: sip water at 3 am Date Last Intake of Solids: 10/23/23 Time Last Intake of Solids: 18:00 Past Medical History Medical History (Updated 10/24/23 @ 10:19 by Puneet Gan DO) Cellulitis Infected sebaceous cyst of skin Abscess Obesity, Class III, BMI 40-49.9 (morbid obesity) RODNEY (obstructive sleep apnea) Tobacco abuse Asthma Past Surgical History Surgical History No pertinent past surgical history Social History Smoking Status: Heavy tobacco smoker tobacco type: cigarettes Smoking cigarettes per day: 30 cigarettes (1 1/2 pack) per day Do You Dip or Chew Tobacco: No Hx Alcohol Use: Yes Alcohol type: hard liquor and other alcohol intake frequency: holidays/special occasions only Hx Substance Use: No substance use type: does not use Physical Exam Vital Signs Last Vital Signs Temp 99.0 F 10/24/23 09:58 Pulse 83 10/24/23 09:58 Resp 20 10/24/23 09:58 BP 134/90 10/24/23 09:58 Pulse Ox 93 10/24/23 09:58 O2 Del Method Room Air 10/24/23 09:58 O2 Flow Rate 2 10/23/23 19:00 Testing Laboratory Results 10/24/23 06:12 10/24/23 06:12 10/24/23 10:12 POC Ur Test NEG Electrocardiogram Date: 06/25/23 Findings: + NSR @
[2023-10-24] MEDS: LACTATED RINGER'S 1,000 ML IV SCH (10:42)
[2023-10-24] MEDS ORDERED: ONDANSETRON INJ 2 MG/ML 2 ML VIAL ONE (11:24)
[2023-10-24] MEDS ORDERED: PROPOFOL IV EMULSION 10 MG/ML 20 ML VIAL IV ONE (11:24)
[2023-10-24] MEDS ORDERED: ROCURONIUM BROMIDE 10 MG/ML 5 ML VIAL IV ONE (11:24)
[2023-10-24] MEDS ORDERED: LIDOCAINE 2% 2 ML VIAL/AMP(20MG/ML) INFIL ONE (11:24)
[2023-10-24] MEDS ORDERED: fentaNYL citrate PF 100 MCG/2 ML VIAL ONE (11:25)
[2023-10-24] MEDS ORDERED: MIDAZOLAM HCL 1 MG/ML 2ML VIAL ONE (11:25)
[2023-10-24] MEDS ORDERED: SUGAMMADEX SODIUM 200 MG/2 ML VIAL IV ONE (11:46)
[2023-10-24] MEDS: BUPIVACAINE 0.25% PF 30 ML VIAL ONE (11:55)
--- NOTE | 2023-10-24 11:56 | Post Operative Brief Note ---
Immediate Post Op Note Date of Surgery October 24, 2023 Pre & Post Diagnosis Operation Date: 10/24/23 07:00 Preop: Left thigh abscess Postop: Same I identified the patient and participated in the time-out.: Yes Procedure Operation Date: 10/24/23 07:00 left inner thigh incision and drainage of abscess Surgeon Tank Hurd MD Landing Support Specialist none Estimated Blood Loss 5 Findings Consistent with Post-Op Diagnosis
--- NOTE | 2023-10-24 11:58 | Operative Report ---
Post Operative Report Pre & Post Diagnosis Operation Date: 10/24/23 07:00 <No data on this case meets the specified criteria> I identified the patient and participated in the time-out.: Yes Procedure Operation Date: 10/24/23 07:00 <No data on this case meets the specified criteria> Surgeon Tank Hurd MD Coding Tech none Estimated Blood Loss 5 Findings Consistent with Post-Op Diagnosis moderate amount of purulent fluid returned Specimens culture for aerobic and anaerobic Drains none Anesthesia Type General Complications none Description of Procedure patient was taken to the operating room, placed supine on the operating table. A timeout was performed, perioperative antibiotics were administered, SCD boots were placed. After adequate and anesthesia and analgesia was obtained, she was placed in lithotomy position and the area was prepped and draped in the normal sterile fashion. The prior incision and drainage site posteriorly was probed with a hemostat. No further purulent drainage was noted from this area. Local anesthetic was in jected into and around the area of the abscess anteriorly. A cruciate incision was made overlying the area of fluctuance and a moderate amount of purulent fluid was returned. Cultures were sent. All of the fluid was drained. The wound was copiously irrigated and suctioned free. The cavity was probed and loculations were broken up with a hemostat. The cavity was packed with half- inch packing. Dressings were applied. She tolerated the procedure without complication, was transferred in stable condition to the PACU. All instrument, needle, sponge counts were correct at the end of the case. I performed the procedure. I attest to the content of the Intraoperative Record and any orders documented therein. Any exceptions are noted below.
--- NOTE | 2023-10-24 12:46 | Anesthesiology Progress Note ---
Date of Service October 24, 2023 Anesthesia Post Procedure Vital Signs Vital Signs: Temp Pulse Pulse Pulse Resp BP BP 10/24/23 12:40 100.0 F H 78 19 10/24/23 12:30 100.0 F H 74 15 10/24/23 12:20 74 12 10/24/23 12:10 76 12 10/24/23 12:03 99.0 F 80 14 10/24/23 10:42 75 10/24/23 09:58 99.0 F 83 20 134/90 10/24/23 07:32 98.4 F 74 16 10/24/23 04:29 98.8 F 81 20 10/24/23 02:28 10/24/23 02:28 98.2 F 82 18 114/74 10/23/23 23:54 98.4 F 85 20 124/78 10/23/23 22:23 78 10/23/23 20:10 82 10/23/23 19:00 83 14 135/81 10/23/23 18:00 97 H 22 10/23/23 16:32 101 H 10/23/23 15:19 92 H 20 134/78 10/23/23 14:46 99.3 F 109 H 20 134/78 BP Pulse Ox O2 Del Method O2 Flow Rate 10/24/23 12:40 124/80 93 Room Air 10/24/23 12:30 132/84 97 Room Air 10/24/23 12:20 144/82 H 99 Oxymask 2 10/24/23 12:10 148/93 H 100 Oxymask 3 10/24/23 12:03 156/90 H 100 Oxymask 5 10/24/23 10:42 10/24/23 09:58 93 Room Air 10/24/23 07:32 120/67 91 Room Air 10/24/23 04:29 97/64 L 93 Room Air 10/24/23 02:28 Room Air 10/24/23 02:28 91 Room Air 10/23/23 23:54 97 Room Air 10/23/23 22:23 10/23/23 20:10 10/23/23 19:00 100 Nasal Cannula 2 10/23/23 18:00 98 10/23/23 16:32 10/23/23 15:19 95 Room Air 10/23/23 14:46 100 Room Air Pain Intensity Left Groin: Pain Intensity: 2 Transfer of Care Handoff Completed per policy Notes Mental Status: alert / awake / arousable and participated in evaluation Patient Amnestic to Procedure: Yes Nausea / Vomiting: adequately controlled Pain: adequately controlled Airway Patency, RR, SpO2: stable & adequate BP & HR: stable & adequate Hydration State: stable & adequate Anesthetic Complications: no major complications apparent and Pt Satisfied with anesthetic care
[2023-10-24] MEDS ORDERED: CHLORASEPTIC (PHENOL) 1.4% SOLN 180 ML BTL MT PRN (13:31)
[2023-10-24] MEDS: COUGH DROP (SUGAR FREE) LOZ 24 LOZ/1 BOX BUCCAL PRN (15:03)
[2023-10-25 07:24] LABS: Hematocrit (blood only) 40.3 % (37.0-47.0); Mean Corpuscular Hemoglobin 29.7 pg (25.0-34.0); Mean Corpuscular Hgb Conc 32.3 g/dL (32.0-36.0); Platelet Count 239 K/uL (130-400); RDW Coefficient of Variation 12.9 % (11.5-14.5); RDW Standard Deviation 43.8 fL (36.4-46.3); Red Blood Count 4.38 M/uL (4.20-5.40)
[2023-10-25 07:49] LABS: BUN Creatinine Ratio 11.9 (10-20); Calcium 8.8 mg/dl (8.6-10.3); Creatinine Clr Calc Pharmacy 75.7 ml/min; Est GFR (African American) 69.5 ml/min; Magnesium 2.2 mg/dl (1.7-2.4); Phosphorus 3.7 mg/dl (2.5-4.9); Potassium 4.3 mmol/L (3.5-5.1)
--- NOTE | 2023-10-25 12:01 | Surgery Progress Note ---
Date of Service October 25, 2023 Assessment & Plan (1) Cellulitis: (2) Abscess: Plan POD # 1 s/p I&D left inner upper thigh abscess avss postop pain controlled culture showing gram + cocci Plan: Wound care nurse consulted, saw in collaboration, will plan for packing 1/4 inch gauze and wound care follow-up and home health nursing. Given location do no feel wound vac would be comfortable for patient. Can always reassess if wound not healing with packing changes. Continue abx pain management okay from surgical standpoint for discharge once nursing and wound care follow-up set up Admission and Anticipated Discharge Date Admission Date: October 23, 2023 Subjective feeling better, pain improved and controlled no n,v tolerating diet Physical Exam Constitutional: WD/WN, vitals as above + morbidly obese, cooperative and comfortable; no acute distress and not ill appearing Respiratory: normal respiratory effort; no respiratory distress Gastrointestinal (Abdomen): Left inner thigh: There is open wound present, induration and erythema markedly improved, tender to palpation. Psychiatric: Orientation: alert and oriented x 3 Results & Data Vital Signs (Past 12 Hours) Vital Signs Temp Pulse Pulse Resp BP Pulse Ox O2 Del Method 10/25/23 11:34 36.3 C L 76 18 119/79 94 Room Air 10/25/23 07:50 36.3 C L 79 18 106/66 91 Room Air 10/25/23 07:01 80 10/25/23 04:05 36.6 C 87 18 105/64 94 Room Air Laboratory Results 10/25/23 Range/Units 06:22 WBC 7.40 (4.8-10.8) K/ul RBC 4.38 (4.20-5.40) M/uL Hgb 13.0 (12.0-16.0) g/dl Hct 40.3 (37.0-47.0) % MCV 92.0 (80.0-100.0) fL MCH 29.7 (25.0-34.0) pg MCHC 32.3 (32.0-36.0) g/dL RDW Std Deviation 43.8 (36.4-46.3) fL RDW Coeff of Gina 12.9 (11.5-14.5) % Plt Count 239 (130-400) K/uL MPV 10.0 (9.4-12.4) fL Sodium 138 (136-145) mmol/L Potassium 4.3 (3.5-5.1) mmol/L Chloride 103 (98-107) mmol/L Carbon Dioxide 29 (21-32) mmol/L Anion Gap 6 (3-11) BUN 13 (6-23) mg/dl Creatinine 1.09 (0.6-1.2) mg/dl Est Cr Clr Drug Dosing 75.7 ml/min Est GFR ( Amer) 69.5 ml/min Est GFR (Non-Af Amer) 60.0 ml/min BUN/Creatinine Ratio 11.9 (10-20) Glucose 119 H (70-99(Fasting)) mg/dl Calcium 8.8 (8.6-10.3) mg/dl Phosphorus 3.7 (2.5-4.9) mg/dl Magnesium 2.2 (1.7-2.4) mg/dl (1) Cellulitis Laterality: left Site of cellulitis: extremity Site of cellulitis of extremity: lower extremity Qualified Code(s): L03.116 - Cellulitis of left lower limb
--- NOTE | 2023-10-25 15:12 | Hospitalist Progress Note ---
Date of Service October 25, 2023 Assessment & Plan (1) Cellulitis: (2) Infected sebaceous cyst of skin: Plan Ms. Hayes is a 47 year old F w/ asthma, NAFLD, morbid obesity, HLD, as well as prior skin abscesses requiring ID who presented to [facility] ED due to worsening pain from abscess s/p I&D on 10/21. Admitted for IV antibiotics given progression of abscess and discussion of possible surgical intervention. Large abscess in perineum / upper inner thigh Hx of Multiple abscesses c/f hidradenitis suppurativa CT pelvis with cellulitis and 4.4 cm fluid collection in the left anterior perineum/upper thigh below the labia that is typical for abscess Preliminary cultures with staph, however, given location and severity will pursue broad coverage until cultures result -Dapto/Zosyn -follow infectious work up Gen Surg consulted - pt is s/p I&D yesterday (10/24/2023) wound cultx posit. for Staph aureus and Anaerococcus prevotii - cont. abx - possibly DC tmrw pt is much improved, pain is well controlled at this time Dermatitis in flexor areas historically put on multiple antifungals as op, suspicious for eczema as well stable at this time, patient would benefit op derm HLD reports noncompliance with medications Morbid obesity Hepatic steatosis -stable LFTs BMI 44 counselling for weight loss/lifestyle modifications Tobacco use Declined nicotine patch Asthma stable, chronic albuterol prn Allergic rhinitis Zyrtec qhs Major depressive disorder, recurrent, moderate Prescribed venlafaxine, doesn't take DVT ppx hpearin sq, SCDs PCP Calli Admission and Anticipated Discharge Date Admission Date: October 23, 2023 Subjective Pt seen in follow up of upper/ inner thigh abscess Gen. surgery consulted - now s/p OR - I&D yesterday Pt is currently laying in bed, in no acute distress, feeling much better, pain is mostly resolved Denies fever chills chest pain shortness of breath, abdominal pain Plan to DC tmrw Review of Systems Review of Systems: All systems reviewed & are unremarkable except as noted in Subjective Physical Exam Physical Exam: GENERAL: morbidly obese F in NAD HEENT: NC, AT. MMM. EOMI NECK: Supple HEART: RRR LUNGS: CTAB, moving air well. No crackles or wheezes are heard. ABDOMEN: Soft, nontender, obese, nondistended with + bowel sounds BACK: No CVAT, no obvious deformity. EXTREMITIES: no LE edema, moves extremities NEUROLOGICAL: Awake, alert and oriented, speech fluent, answers appropriately, moving all 4 extremities. Skin: incision with packing left upper inner thigh Results & Data Results & Data Vital Signs (Past 12 Hours) Vital Signs Temp Pulse Pulse Resp BP Pulse Ox O2 Del Method 10/25/23 11:34 36.3 C L 76 18 119/79 94 Room Air 10/25/23 07:50 36.3 C L 79 18 106/66 91 Room Air 10/25/23 07:01 80 10/25/23 04:05 36.6 C 87 18 105/64 94 Room Air Laboratory Results 10/25/23 Range/Units 06:22 WBC 7.40 (4.8-10.8) K/ul RBC 4.38 (4.20-5.40) M/uL Hgb 13.0 (12.0-16.0) g/dl Hct 40.3 (37.0-47.0) % MCV 92.0 (80.0-100.0) fL MCH 29.7 (25.0-34.0) pg MCHC 32.3 (32.0-36.0) g/dL RDW Std Deviation 43.8 (36.4-46.3) fL RDW Coeff of Gina 12.9 (11.5-14.5) % Plt Count 239 (130-400) K/uL MPV 10.0 (9.4-12.4) fL Sodium 138 (136-145) mmol/L Potassium 4.3 (3.5-5.1) mmol/L Chloride 103 (98-107) mmol/L Carbon Dioxide 29 (21-32) mmol/L Anion Gap 6 (3-11) BUN 13 (6-23) mg/dl Creatinine 1.09 (0.6-1.2) mg/dl Est Cr Clr Drug Dosing 75.7 ml/min Est GFR ( Amer) 69.5 ml/min Est GFR (Non-Af Amer) 60.0 ml/min BUN/Creatinine Ratio 11.9 (10-20) Glucose 119 H (70-99(Fasting)) mg/dl Calcium 8.8 (8.6-10.3) mg/dl Phosphorus 3.7 (2.5-4.9) mg/dl Magnesium 2.2 (1.7-2.4) mg/dl Medications Administered Current Inpatient Medications Acetaminophen (Acetaminophen 325 Mg Tab) 650 mg PO Q4H PRN PRN Reason: Pain or Fever Stop: 11/22/23 18:53 Last Admin: 10/24/23 01:41 Dose: 650 mg Al Hydrox/Mg Hydrox/Simethicone (Aluminum/Magnesium Susp 30 Ml Udc) 15 ml PO Q4H PRN PRN Reason: Dyspepsia Stop: 11/22/23 18:53 Albuterol (Albuterol Hfa 8 Gm Inhaler) 2 puffs INH QID PRN PRN Reason: sob/wheezing Stop: 11/22/23 18:53 Cetirizine HCl (Cetirizine Hcl 10 Mg Tablet) 10 mg PO DAILY LIANNA Stop: 11/23/23 08:59 Last Admin: 10/25/23 07:44 Dose: 10 mg Heparin Sodium (Porcine) (Heparin Sod 5,000 Unit/0.5 Ml Vial) 7,500 units SQ Q12 LIANNA Stop: 11/22/23 20:59 Last Admin: 10/24/23 08:05 Dose: Not Given Daptomycin 300 mg/ Syringe 6 mls @ 3 mls/min IV Q24H LIANNA; Protocol Stop: 10/25/23 16:59 Last Admin: 10/24/23 16:30 Dose: 3 mls/min Piperacillin Sod/Tazobactam (Sod 4.5 gm/ Dextrose) 100 mls @ 25 mls/hr IV Q8H LIANNA; Protocol Stop: 10/31/23 00:59 Last Infusion: 10/25/23 12:07 Dose: Infused Lactated Ringer's (Lr) 1,000 mls @ 15 mls/hr IV .Q24H LIANNA Stop: 11/23/23 10:14 Last Admin: 10/25/23 12:20 Dose: Not Given Lactobacillus Acidophilus (Advanced Probiotic 625 Mg Capsule) 1,250 mg PO DAILY LIANNA Stop: 11/23/23 08:59 Last Admin: 10/25/23 07:44 Dose: 1,250 mg Magnesium Hydroxide (Magnesium Hydroxide Susp 30 Ml Udc) 30 ml PO Q12H PRN PRN Reason: Constipation Stop: 11/22/23 18:53 Menthol (Cough Drop (Sugar Free) Vanessa 24 Vanessa/1 Box) 1 vanessa BUCCAL Q1H PRN PRN Reason: Sore Throat Stop: 11/23/23 14:34 Last Admin: 10/24/23 15:03 Dose: 1 vanessa Miscellaneous (Remove Nicoderm Patch) 1 each N/A DAILY@0859 [facility] Stop: 11/23/23 08:58 Last Admin: 10/25/23 07:45 Dose: 1 each Morphine Sulfate (Morphine Sulfate 2 Mg/Ml Carp) 2 mg IV Q3H PRN PRN Reason: Moderate Pain (Scale 4, 5, 6) Stop: 11/07/23 07:41 Morphine Sulfate (Morphine Sulfate 4 Mg/Ml 1 Ml Carp\Vial) 4 mg IV Q3H PRN PRN Reason: Severe Pain (Scale 7, 8, 9,10) Stop: 11/07/23 07:41 Last Admin: 10/25/23 11:46 Dose: 4 mg Nicotine (Nicotine 21 Mg/24 Hr Tdsy) 1 patch TD DAILY [facility] Stop: 11/22/23 20:49 Last Admin: 10/25/23 07:45 Dose: 1 patch Ondansetron HCl (Ondansetron Inj 2 Mg/Ml 2 Ml Vial) 4 mg IV Q6H PRN PRN Reason: Nausea Stop: 11/22/23 18:53 Oxycodone HCl (Oxycodone Hcl Ir 5 Mg Tab (Immediate Release)) 5 mg PO Q6H PRN PRN Reason: Mild-Mod Pain (Scale 1-6) Stop: 11/06/23 17:17 Last Admin: 10/25/23 01:01 Dose: 5 mg Phenol (Chloraseptic (Phenol) 1.4% Soln 180 Ml Btl) 1 sprays MT Q2H PRN PRN Reason: Sore Throat Stop: 11/23/23 13:30 Polyethylene Glycol (Polyethylene (Miralax) 17 Gm Pack) 17 gm PO DAILY PRN PRN Reason: Constipation Stop: 11/22/23 18:53 (1) Cellulitis Laterality: left Site of cellulitis: extremity Site of cellulitis of extremity: lower extremity Qualified Code(s): L03.116 - Cellulitis of left lower limb
[2023-10-25] MEDS: POLYETHYLENE (MIRALAX) 17 GM PACK PO PRN (15:24)
[2023-10-26 07:42] LABS: Hemoglobin 13.1 g/dl (12.0-16.0); Mean Corpuscular Volume 90.9 fL (80.0-100.0); Mean Platelet Volume 9.7 fL (9.4-12.4); Platelet Count 244 K/uL (130-400); RDW Coefficient of Variation 12.8 % (11.5-14.5); RDW Standard Deviation 42.9 fL (36.4-46.3); Red Blood Count 4.51 M/uL (4.20-5.40); White Blood Count 6.17 K/ul (4.8-10.8)
[2023-10-26 08:00] LABS: BUN Creatinine Ratio 14.6 (10-20); Calcium 9.1 mg/dl (8.6-10.3); Est GFR (African American) 81.1 ml/min; Est GFR (Non-African American) 69.9 ml/min; Magnesium 2.3 mg/dl (1.7-2.4); Phosphorus 3.9 mg/dl (2.5-4.9); Potassium 4.4 mmol/L (3.5-5.1)
--- NOTE | 2023-10-26 08:36 | Hospitalist Progress Note ---
Date of Service October 26, 2023 Assessment & Plan Admission and Anticipated Discharge Date Admission Date: October 23, 2023 Results & Data Results & Data Vital Signs (Past 12 Hours) Vital Signs Temp Pulse Pulse Pulse Resp BP Pulse Ox 10/26/23 07:38 36.5 C 71 18 137/79 95 10/26/23 03:27 36.8 C 67 18 145/81 H 95 10/26/23 01:26 78 10/25/23 22:56 36.7 C 83 18 133/86 93 O2 Del Method 10/26/23 07:38 Room Air 10/26/23 03:27 Room Air 10/26/23 01:26 10/25/23 22:56 Room Air
--- NOTE | 2023-10-26 13:33 | Discharge Summary ---
Discharge Summary Date of Service October 26, 2023 Principal Dx & Hospital Course #1 = Principal Diagnosis (1) Cellulitis: (2) Infected sebaceous cyst of skin: Plan Ms. Hayes is a 47 year old F w/ asthma, NAFLD, morbid obesity, HLD, as well as prior skin abscesses who presented to [facility] ED due to worsening pain from abscess s/p I&D on 10/21. Admitted for IV antibiotics given progression of abscess and discussion of possible surgical intervention. Large abscess in perineum / upper inner thigh Hx of Multiple abscesses in setting of hidradenitis suppurativa CT pelvis with cellulitis and 4.4 cm fluid collection in the left anterior perineum/upper thigh below the labia that is typical for abscess Treated initially with Dapto/Zosyn, then narrowed to just Zosyn wound cultx positive for Staph aureus and Anaerococcus prevotii -discharged with 14 days of po Augmentin Gen Surg was consulted - pt is s/p I&D on 10/24/2023 pt is much improved, pain is well controlled at this time Pt was unable to get home services, however requested that her friend be trained on how to do the home packing-taught by wound care Pt with outpt wound care followup scheduled for the . PCP followup as well after discharge. Dermatitis in flexor areas historically put on multiple antifungals, suspicious for eczema as well stable at this time, consider outpt Derm referral HLD reports noncompliance with medications PCP followup Morbid obesity Hepatic steatosis -stable LFTs BMI 44 counselling for weight loss/lifestyle modifications Tobacco use nicotine patch, encourage cessation Asthma stable, chronic albuterol prn Allergic rhinitis Zyrtec qhs Major depressive disorder, recurrent, moderate Prescribed venlafaxine, doesn't take Notes For Next Care Provider Please ensure wound care followup Medication Changes From Visit Augmentin 875mg BID x 14 days Ibuprofen 600mg TID PRN for pain Admission HPI Per Admitting Provider Ms. Hayes is a 47 year old woman with past medical history remarkable for asthma, NAFLD, morbid obesity, HLD, as well as prior skin abscesses requiring ID who presented to [facility] ED due to worsening pain from abscess s/p I&D on 10/21. Patient with history of multiple abscess on left breast, underarms, and groin that have required antibitoics and drainage.Patient denies being diagnosed with hidradenitis suppurativa. She states they usually will drain in ED and she can go home on antibiotics. She notes that the abscess on her left gluteal fold started 2-3 days ago and became very painful prompting presentation to ED on 10/21. After it was drained, patient states she felt alright, however, she noted that in the evening the pain and swelling worsening into her groin Patient states she has multiple medications prescribed to her, but she doesn't take any of them--she just takes Zyrtec and albuterol prn. She smokes and declines a nicotine patch. She endorses alcohol 1-2 times a week. In the ED, vitals were notable for BP of 130s, HR of 90s-100 and O2 sat of 90s on room air, temp borderlin 37.4 TMAX Imaging revealed extensive cellulitis of perineum and fluid collection in perineum and labia EKG sinus tachycardia ED interventions: morphine, dapto, Consultants: gen surg Patient to be admitted to the [facility] for further evaluation and management of abscess of perineum Admission Exam Per Admitting Provider GENERAL APPEARANCE: AxOx4, uncomfortable appearing woman HEENT: NC, AT. MMM. EOMI, clear conjunctiva, oropharynx clear. edentulous NECK: Supple without lymphadenopathy. No stiffness or restricted ROM. HEART: tachycardiac, regular no murmur LUNGS: CTAB, moving air well. No crackles or wheezes are heard. ABDOMEN: Soft, nontender, nondistended with good bowel sounds heard. BACK: No CVAT, no obvious deformity. EXTREMITIES: Without cyanosis, clubbing or edema. NEUROLOGICAL: Grossly nonfocal. Alert and oriented, moving all 4 extremities. CN not formally tested but appear grossly intact Skin: incision with packing on left gluteal fold with erythema and inflammation extending into perineum up left labia majora, multiple erythematous raised lesions along gluteal folds/labia suspicious for boils/pustules; large dry discoloration with noted demarcated boarder under breasts, flexural areas of arms, inguinal folds, and bilateral axilla Discharge Exam General: Alert, oriented. No acute distress Psych: Appropriate mood and affect Neuro: No gross deficits HEENT: NC/AT CV: RRR Resp: Breath sounds clear bilaterally, no increased effort of breathing. Abdomen: Soft, nontender, nondistended. : open wound without erythema near labia Updated Medication List Medication Instructions Recorded Confirmed Type albuterol sulfate 90 mcg/actuation 90 mcg inhalation QID PRN 10/23/23 10/23/23 History aerosol inhaler sob/wheezing cetirizine 10 mg tablet 10 mg PO DAILY 10/23/23 10/23/23 History amoxicillin 875 mg-potassium 1 tab PO BID #28 tabs 10/26/23 Rx clavulanate 125 mg tablet ibuprofen 600 mg tablet 600 mg PO Q8H PRN pain #30 tabs 10/26/23 Rx Hospital Stay Data Consultations 10/23/23 16:57 ED Decision to Admit Stat 10/23/23 17:10 Consult General Surgery Routine Procedures Performed Operation Date: 10/24/23 07:00 Actual Procedures p Incision and Drainage Left Thigh Abscess(Not Applicable) - Tank Hurd MD Diagnostic Imagining Performed 10/23/23 14:48 CT pelvis w/IV con only Stat Pelvis CT 10/23/23 14:48 CT SCAN OF THE PELVIS WITH IV CONTRAST CLINICAL HISTORY: Abscess status post recent drainage. COMPARISON STUDY: Pelvic CT dated 08/25/2023. TECHNIQUE: Following the IV administration of 94 cc of Optiray 320, CT scan of the pelvis is performed from the pelvic inlet to the proximal femora. Images are reviewed in the axial, sagittal, and coronal planes. IV contrast was administered without complication. A dose lowering technique was utilized adhering to the principles of ALARA. CT DOSE: 1663.67 mGy.cm FINDINGS: The bladder, uterus, and adnexa are normal as visualized noting small bilateral ovarian follicles. There is no free fluid or intraperitoneal free air identified in the pelvis. The imaged bowel loops are normal in caliber with no evidence of obstruction. A normal appendix is seen in the right lower quadrant. There is a fat-containing umbilical hernia. No pelvic sidewall lymphadenopathy is identified. There are prominent left inguinal lymph nodes which measure up to 2.5 cm in length. These are likely reactive. There is infiltration of the left perineal soft tissues typical for sialitis. A fluid collection is seen in the left perineum/medial upper thigh below the labia on axial image #434. This is just deep to the dermal surface and measures 2.3 x 4.4 x 1.8 cm. This is typical in appearance for abscess. There is a focus of subcutaneous gas and infiltration/fluid at the dermal surface seen more posteriorly in the right upper thigh on image #451. This may represent the site of a reportedly drained abscess. No additional foci of soft tissue gas are identified. The perianal and gluteal soft tissues are normal in appearance. The bony pelvis appears intact. No lytic or blastic lesion is seen. Sclerotic change is noted in the sacroiliac joints. The regional musculature is normal in appearance. IMPRESSION: 1. There is evidence of cellulitis in the soft tissues of the left perineum/medial upper thigh. 2. There is a 4.4 cm fluid collection in the left anterior perineum/upper thigh below the labia that is typical for abscess. 3. Inflammation the small foci of soft tissue gas and trace fluid posterior to this collection in the medial upper thigh likely represents the site of a reportedly drained abscess. No additional foci of soft tissue gas are identified and necrotizing infection is considered much less likely. Correlate clinically. 4. The pelvic viscera is normal in appearance. 5. Additional findings as above. ACT 112: Negative or not required by law. Electronically signed by: Gustavo Solorio M.D. 10/23/2023 4:26 PM Pending Results Patient Have Any Pending Studies at Discharge: Yes (intraop culture) Discharge Instructions Given to Patient (Per Discharging Provider) Ms. Hayes, You are being discharged home with antibiotics to help with your wound. A family member/friend was also taught to do the packing at home per your request. Please keep followup with the wound care appointment on the and with your primary care provider after discharge. Please continue to alternate tylenol 1000mg TID with Ibuprofen 600mg TID NEEDED at home to help with pain. Please contact your primary care provider if any additional pain medications are needed. Please do not hesitate to come back to the emergency room if your symptoms worsen or return. It was a pleasure taking care of you while you were here. Total Time Total Time Spent Total Time Spent (In Minutes): 75
== END 2023-10-26 14:34 | disposition home or self-care (01) | DRG 603 ==
LOC: ED 14:37 → EDINP 17:08 → SUATTDRO 17:08 → 2W 19:43